=== PATIENT | male | born 1935 | race African-American/Black ===

== ENCOUNTER 2018-11-22 10:22 | Inpatient (IN) | payer MEDICARE, OTHER ==
[~2018-11-22] VITALS: Ht 177.8 cm; Wt 41.4 kg
[2018-11-22] MEDS ORDERED: SOD CHLORIDE 0.9% 1,000 ML IV STA (10:27)
[2018-11-22] MEDS ORDERED: SOD CHLORIDE 0.9% 1,000 ML IV SCH (12:05)
--- NOTE | 2018-11-22 12:13 | ERD ---
ER Documentation Chief Complaint Chief Complaint FAILURE TO THRIVE FROM HOME, BIB R102 HPI 83-year-old gentleman who has a history of prior stroke who presents to the emergency room for failure to thrive. The patient lives at home with family member. The patient is not taking oral intake for at least 2 days. He denies any falls or injuries. The family was concerned and called 911. There have been some conversations around palliative care for this patient in the past. ROS All systems reviewed and are negative except as per history of present illness. Allergies Allergies: Coded Allergies: No Known Allergy (Unverified , 11/22/18) PMhx/Soc Medical and Surgical Hx: Unable to obtain Hx Alcohol Use: No Hx Substance Use: No Hx Tobacco Use: No Smoking Status: Unknown if ever smoked FmHx Family History: No diabetes Physical Exam Vitals Vital Signs Date Temp Pulse Resp B/P (MAP) Pulse Ox O2 O2 Flow FiO2 Time Delivery Rate 11/22/18 98.5 106 15 129/76 100 Room Air 12:00 (93) 11/22/18 98.5 125 12 116/68 100 10:35 (84) Physical Exam General: Cachectic male, clinical stigmata of severe dehydration Head: Normocephalic, atraumatic. Eyes: Pupils equally reactive, EOM intact ENT: Very dry mucous membranes Neck: Supple, no lymphadenopathy Respiratory: Lungs clear bilaterally, no distress Cardiovascular: RRR, no murmurs, rubs, or gallops Abdominal: Soft, non-tender, non-distended, no peritoneal signs : Deferred MSK: No edema, no unilateral swelling, generalized weakness noted Neurologic: Alert and oriented, moving all extremities, normal speech, no focal weakness, no cerebellar signs Skin: No rash Psych: Normal mood Result Diagram: 11/22/18 1100 11/22/18 1100 Results 24 hrs Laboratory Tests Test 11/22/18 10:44 11/22/18 11:00 Bedside Glucose 103 mg/dL White Blood Count 14.5 10^3/ul Red Blood Count 4.91 10^6/ul Hemoglobin 15.3 g/dl Hematocrit 49.5 % Mean Corpuscular Volume 100.8 fl Mean Corpuscular Hemoglobin 31.2 pg Mean Corpuscular Hemoglobin Concent 30.9 g/dl Red Cell Distribution Width 14.6 % Platelet Count 198 10^3/UL Mean Platelet Volume 12.4 fl Immature Granulocytes % 0.500 % Neutrophils % 82.6 % Lymphocytes % 9.8 % Monocytes % 5.9 % Eosinophils % 0.5 % Basophils % 0.7 % Nucleated Red Blood Cells % 0.0 /100WBC Immature Granulocytes # 0.070 10^3/ul Neutrophils # 12.0 10^3/ul Lymphocytes # 1.4 10^3/ul Monocytes # 0.9 10^3/ul Eosinophils # 0.1 10^3/ul Basophils # 0.1 10^3/ul Nucleated Red Blood Cells # 0.0 10^3/ul Sodium Level 157 mmol/L Potassium Level 5.2 mmol/L Chloride Level 110 mmol/L Carbon Dioxide Level 25 mmol/L Anion Gap 22 Blood Urea Nitrogen 121 mg/dl Creatinine 3.05 mg/dl Est Glomerular Filtrat Rate mL/min mL/min Glucose Level 148 mg/dl Calcium Level 11.6 mg/dl Total Bilirubin 0.1 mg/dl Direct Bilirubin 0.00 mg/dl Indirect Bilirubin 0.1 mg/dl Aspartate Amino Transf (AST/SGOT) 22 IU/L Alanine Aminotransferase (ALT/SGPT) 29 IU/L Alkaline Phosphatase 96 IU/L Troponin I 0.099 ng/ml Total Protein 7.3 g/dl Albumin 4.5 g/dl Globulin 2.80 g/dl Albumin/Globulin Ratio 1.60 Free Thyroxine Index 4.01 ug/ml Thyroxine (T4) 10.9 ug/dl Triiodothyronine (T3) Uptake 36.8 % Current Medications Medications Dose Sig/Celina Start Time Status Last (Trade) Ordered Route PRN Stop Time Admin Dose Reason Admin Sodium 1,000 ml @ Q1H STAT 11/22/18 DC 11/22/18 Chloride 1,000 mls/hr IV 10:27 11/22/18 10:50 11:26 Ondansetron 4 mg BRIDGE ORDER 11/22/18 HCl (Zofran PRN IV 12:30 11/23/18 Inj) NAUSEA/VOMITI 12:29 NG 650 mg ER BRIDGE 11/22/18 Acetaminophen PRN PO 12:30 11/23/18 (Tylenol .MILD PAIN 12:29 Tab) 1-3 OR TEMP Sodium 1,000 ml @ [id number] IV 11/22/18 UNV Chloride 70 mls/hr 12:05 Procedures/MDM EKG, MONITORS, & DIAGNOSTIC IMAGING: EKG: I reviewed and interpreted a 12-lead EKG. Rhythm: Normal sinus rhythm ST Changes: No contiguous ST segment elevations T waves: No contiguous T wave inversions Impression: [No evidence of acute cardiac ischemia] cxr IMPRESSION: 1. Hyperinflated lungs which are clear. 2. Benign chronic age-related senescent changes. 3. No acute cardiopulmonary process. RPTAT: PP CTB IMPRESSION: 1. Moderate diffuse atrophy. 2. Mild microangiopathic ischemic change. 3. Vascular calcifications. 4. No acute intracranial process. RPTAT: HMJB LAB INTERPRETATION: I reviewed the laboratory testing and it shows severe hypernatremia, potassium of 5.3, renal insufficiency 3.0 unknown baseline MEDICAL DECISION MAKING: The patient presents with clear signs and symptoms of severe dehydration secondary to poor p.o. intake, emaciation and cachexia. This is very consistent with possible end-of-life issues versus failure to thrive. The patient will benefit from hospitalization for treatment of severe dehydration but further conversation surrounding palliation would be most appropriate. The patient does have some borderline T wave on his EKG but the patient has a potassium of 5.3. I do not believe this is an indication for treatment with calcium. The patient's potassium and creatinine are likely to respond to fluid resuscitation. ER COURSE: * Patient was given IV fluids. Laboratory testing and diagnostic imaging are documented above. The patient is stable for admission and further management. CONSULTATION: [None] DISPOSITION PLAN: Accepting care team and consultations: I discussed the current laboratory data, diagnostic imaging and emergency care provided. Admitting team: Dr. Garcia Admitting team indication: Insurance directed Departure Diagnosis: Primary Impression: Severe dehydration Additional Impressions: Acute renal failure Acute renal failure type: unspecified Qualified Codes: N17.9 - Acute kidney failure, unspecified Hypernatremia Failure to thrive Failure to thrive age range: in adult Qualified Codes: R62.7 - Adult failure to thrive Condition: Stable CARYN OVIEDO MD Nov 22, 2018 12:13
[2018-11-22] MEDS ORDERED: ONDANSETRON 4 MG INJ IV PRN ×2 (12:30)
[2018-11-22] MEDS ORDERED: NACL 0.9% 3 ML SYG IV SCH (12:30)
[2018-11-22] MEDS ORDERED: ACETAMINOPHEN 325 MG TAB PO PRN ×2 (12:30)
--- NOTE | 2018-11-22 12:35 | HP ---
Date/Time of Note Date/Time of Note DATE: 11/22/18 TIME: 12:34 Assessment/Plan VTE Prophylaxis Pharmacological prophylaxis: other Lines/Catheters IV [facility]from [facility] Peripheral IV Assessment/Plan Hospital Course Patient is a -[place] male with past medical history significant for dementia, history of CVA, history of [place], dyslipidemia, hypertension, diabetes mellitus, hyperparathyroidism who presents to [facility] by his family for failure to thrive. According to daughter at bedside, patient is at baseline dementia cognition however in the past week or so patient has becoming worse and worse as far as his appetite. Patient's appetite was already terrible to begin with with barely any oral intake, however recently patient has not wanted any food at all. Patient currently has no acute complaints other than not feeling hungry. Patient according to daughter has had 0 to no oral intake and has thrown up recently as well. HPI is limited as patient's mental status is chronic is not conducive for more information. Objective Physical exam General: Patient is laying in bed and answers questions sometimes, extremely cachectic Mentation: Patient is alert and oriented to self somewhat Head: Normocephalic atraumatic Eyes: EOMI, pupils reactive to light Neck: Supple, nontender, midline Respiratory: Clear to auscultation bilaterally Cardiovascular: regular rate, no obvious murmurs Gastrointestinal: non-tender to palpation, bowel sounds heard. Neurological: Moves all extremities spontaneously Skin: No new skin lesions Assessment and plan Failure to thrive with inability to tolerate p.o. and nausea -Possible end-of-life care, patient on palliative care at home, will also consult palliative care physician here -We will attempt conservative measures for now and will approach this at a [id number] fashion, patient has no acute complaints at this time except for not being hungry, -IV fluids as patient is likely extremely dehydrated -Daughter states that patient's swallowing may have been compromised recently, will get speech therapy evaluation, n.p.o. for now -We will need to rule out UTI as cause of above failure to thrive, urinalysis still pending. Will need antibiotics if urinalysis is positive Leukocytosis -Very mild, likely reactive, however urinalysis is not back yet, will monitor Acute kidney injury versus chronic kidney disease -Likely secondary to decreased p.o. intake -Nephrology, Dr. Woods consulted -Continue IV fluids Hypernatremia -Likely secondary to extreme dehydration -IV fluids for now Dementia -At baseline per daughter, able to answer questions but does not have full insight into his medical care Dyslipidemia -Continue home meds when able to tolerate p.o. Hypertension -Continue home meds when able to tolerate p.o. Diabetes mellitus -Insulin sliding scale 1 house, A1c pending Hyperkalemia -Likely secondary to above acute kidney injury, mild, monitor for now, nephrology recommendations appreciated Hyperparathyroidism -Patient on Sensipar at home, however recently started, continue home meds when able, Disposition -This appears to be a case of worsening failure to thrive however will rule out infectious causes, pending UTI workup, continue IV hydration and follow-up tomorrow and take this on a [id number] basis. Patient's family would like fu resuscitation for now. Result Diagram: 11/22/18 1100 11/22/18 1100 Results 24hrs Laboratory Tests Test 11/22/18 10:44 11/22/18 11:00 Bedside Glucose 103 White Blood Count 14.5 H Red Blood Count 4.91 Hemoglobin 15.3 Hematocrit 49.5 Mean Corpuscular Volume 100.8 Mean Corpuscular Hemoglobin 31.2 Mean Corpuscular Hemoglobin Concent 30.9 L Red Cell Distribution Width 14.6 H Platelet Count 198 Mean Platelet Volume 12.4 H Immature Granulocytes % 0.500 H Neutrophils % 82.6 H Lymphocytes % 9.8 L Monocytes % 5.9 Eosinophils % 0.5 Basophils % 0.7 Nucleated Red Blood Cells % 0.0 Immature Granulocytes # 0.070 H Neutrophils # 12.0 H Lymphocytes # 1.4 Monocytes # 0.9 Eosinophils # 0.1 Basophils # 0.1 Nucleated Red Blood Cells # 0.0 Sodium Level 157 H Potassium Level 5.2 H Chloride Level 110 Carbon Dioxide Level 25 Anion Gap 22 H Blood Urea Nitrogen 121 H Creatinine 3.05 H Est Glomerular Filtrat Rate mL/min Glucose Level 148 Calcium Level 11.6 H Total Bilirubin 0.1 L Direct Bilirubin 0.00 Indirect Bilirubin 0.1 Aspartate Amino Transf (AST/SGOT) 22 Alanine Aminotransferase (ALT/SGPT) 29 Alkaline Phosphatase 96 Troponin I 0.099 Total Protein 7.3 Albumin 4.5 Globulin 2.80 Albumin/Globulin Ratio 1.60 Free Thyroxine Index 4.01 H Thyroxine (T4) 10.9 Triiodothyronine (T3) Uptake 36.8 HPI/ROS Admit Date/Time Admit Date/Time PMH/Family/Social Past Medical History Medications Current Medications Ondansetron HCl (Zofran Inj) 4 mg BRIDGE ORDER PRN IV NAUSEA/VOMITING; Start 11/22/18 at 12:30; Stop 11/23/18 at 12:29 Acetaminophen (Tylenol Tab) 650 mg ER BRIDGE PRN PO .MILD PAIN 1-3 OR TEMP; Start 11/22/18 at 12:30; Stop 11/23/18 at 12:29 Sodium Chloride 1,000 ml @ 70 mls/hr [id number] IV ; Start 11/22/18 at 12:05 IV Flush (NS 3 ml) 3 ml PER PROTOCOL IV ; Start 11/22/18 at 12:30 Ondansetron HCl (Zofran Inj) 4 mg Q6H PRN IV NAUSEA/VOMITING; Start 11/22/18 at 12:30 Acetaminophen (Tylenol Tab) 650 mg Q6H PRN PO .PAIN 1-3 OR TEMP; Start 11/22/18 at 12:30 Pantoprazole (Protonix Iv) 40 mg DAILY@06 IV ; Start 11/23/18 at 06:00 Miscellaneous Information (* Miscellaneous Pharmacy Order) Discontinue current oral sulfonylur... ONCE ONCE XX ; Start 11/22/18 at 13:00; Stop 11/22/18 at 13:01; Status UNV Diagnostic Test (Pha) (Accu-Chek) 1 XX ; Start 11/23/18 at 02:00; Status UNV Miscellaneous Information (* Miscellaneous Pharmacy Order) HYPOGLYCEMIA PROTOCOL w... ONCE ONCE XX ; Start 11/22/18 at 13:00; Stop 11/22/18 at 13:01; Status UNV Insulin Aspart (Novolog Insulin Pen) NOVOLOG *MILD* ALGORITHM Q4 SC ; Start 11/22/18 at 13:00; Status UNV Miscellaneous Information (* Miscellaneous Pharmacy Order) Discontinue all previ... ONCE ONCE XX ; Start 11/22/18 at 13:00; Stop 11/22/18 at 13:01; Status UNV Coded Allergies: No Known Allergy (Unverified , 11/22/18) Social History Smoking Status: Unknown if ever smoked Exam/Review of Systems Vital Signs Vitals Vital Signs Date Temp Pulse Resp B/P (MAP) Pulse Ox O2 O2 Flow FiO2 Time Delivery Rate 11/22/18 98.5 106 15 129/76 100 Room Air 12:00 (93) BRADLEY RINCON Nov 22, 2018 12:35
--- NOTE | 2018-11-22 12:50 | CONS ---
Assessment/Plan Assessment/Plan Assessment/Plan (Daily) 1. acute kidney injury on possible CKD due to ATN from prerenal azotemia from dehydration 2. Severe dehydration due to Decreased PO , failure to thrive 3. Acute hypernatremia 4. Hyperkalemia 5. H/o Previosu CAD s/p stent placement 6. H/o Dementia 7. H/o Hypertension 8. H/o Hypothyroidism Plan: S/p 1 L NS in ED, will change IVF from NS to 1/2 NS at 80 cc/h due to hypern atremia Urine Na, Urine prot/cr ration, Urine eosinophils, CK total, Uric acid Renal US to assess for CKD, to rule out hydronephrosis Dietary consult swallow evaluation Thanks for consultation, I will continue to follow up Consultation Date/Type/Reason Admit Date/Time 11/22/18 Date of Consultation: Nov 22, 2018 Type of Consult NEPHROLOGY Reason for Consultation acute kidney injury, hyperkalemia, Hypernatremia Requesting Provider: BRADLEY RINCON Date/Time of Note DATE: 11/22/18 TIME: 12:49 Hx of Present Illness 83 y/o male with past medical history significant for dementia, history of CVA, history of [place], dyslipidemia, hypertension, diabetes mellitus, hyperparathyroidism who presents to [facility] by his family for failure to thrive. According to daughter at bedside, patient is at baseline dementia cognition however in the past week or so patient has becoming worse and worse as far as his appetite. he gets admitted for failure to thrive, severe dehydration , ON admission BUN/Cr 121/3.05, Na 157, K 5.2- Renal has been consulted for hypernatremia, acute kidney injury, Hyperkalemia. pt is nonverbal at this time to provide any detailed HPI. Subjective hx not possible: other Past Medical History Medical History: coronary artery disease, diabetes, high cholesterol, hypertension, other (dementia ) Medications Current Medications Ondansetron HCl (Zofran Inj) 4 mg BRIDGE ORDER PRN IV NAUSEA/VOMITING; Start 11/22/18 at 12:30; Stop 11/23/18 at 12:29 Acetaminophen (Tylenol Tab) 650 mg ER BRIDGE PRN PO .MILD PAIN 1-3 OR TEMP; Start 11/22/18 at 12:30; Stop 11/23/18 at 12:29 Sodium Chloride 1,000 ml @ 70 mls/hr [id number] IV ; Start 11/22/18 at 12:05 IV Flush (NS 3 ml) 3 ml PER PROTOCOL IV ; Start 11/22/18 at 12:30 Ondansetron HCl (Zofran Inj) 4 mg Q6H PRN IV NAUSEA/VOMITING; Start 11/22/18 at 12:30 Acetaminophen (Tylenol Tab) 650 mg Q6H PRN PO .PAIN 1-3 OR TEMP; Start 11/22/18 at 12:30 Pantoprazole (Protonix Iv) 40 mg DAILY@06 IV ; Start 11/23/18 at 06:00 Diagnostic Test (Pha) (Accu-Chek) 1 ea 02 XX ; Start 11/23/18 at 02:00 Insulin Aspart (Novolog Insulin Pen) NOVOLOG *MILD* ALGORITHM Q4 SC ; Start 11/22/18 at 13:00 Miscellaneous Information 1 ea NOTE XX ; Start 11/22/18 at 13:00 Glucose (Glutose) 15 gm Q15M PRN PO DECREASED GLUCOSE; Start 11/22/18 at 13:00 Glucose (Glutose) 22.5 gm Q15M PRN PO DECREASED GLUCOSE; Start 11/22/18 at 13:00 Dextrose (D50w Syringe) 25 ml Q15M PRN IV DECREASED GLUCOSE; Start 11/22/18 at 13:00 Dextrose (D50w Syringe) 50 ml Q15M PRN IV DECREASED GLUCOSE; Start 11/22/18 at 13:00 Glucagon (Glucagen) 1 mg Q15M PRN IM DECREASED GLUCOSE; Start 11/22/18 at 13:00 Glucose (Glutose) 15 gm Q15M PRN BUCCAL DECREASED GLUCOSE; Start 11/22/18 at 13:00 Allergies: Coded Allergies: No Known Allergy (Unverified , 11/22/18) Past Surgical History Past Surgical Hx: other (Coronary angiogram with stent placement ) Family History Significant Family History: no pertinent family hx Social History Alcohol Use: none Smoking Status: Unknown if ever smoked Drug Use: none Exam/Review of Systems Exam Vitals Vital Signs Date Temp Pulse Resp B/P (MAP) Pulse Ox O2 O2 Flow FiO2 Time Delivery Rate 11/22/18 98.5 106 15 129/76 100 Room Air 12:00 (93) Constitutional: distress, frail, other (cachectic ) Head: normocephalic Eyes: nl conjunctiva ENMT: nl external ears & nose, other (dry mucous membrane ) Neck: supple, non-tender Respiratory: clear to auscultation, normal air movement, diminished breath corinne nds Cardiovascular: regular rate and rhythm, nl pulses Gastrointestinal: soft, non-tender Musculoskeletal: joint tenderness, muscle weakness, swelling Extremities: normal pulses Neurological: other (weak, lethargic ) Skin: other (dry skin ) Lymph: nl lymph nodes Results Result Diagram: 11/22/18 1100 11/22/18 1100 Results 24hrs Laboratory Tests Test 11/22/18 10:44 11/22/18 11:00 Bedside Glucose 103 White Blood Count 14.5 H Red Blood Count 4.91 Hemoglobin 15.3 Hematocrit 49.5 Mean Corpuscular Volume 100.8 Mean Corpuscular Hemoglobin 31.2 Mean Corpuscular Hemoglobin Concent 30.9 L Red Cell Distribution Width 14.6 H Platelet Count 198 Mean Platelet Volume 12.4 H Immature Granulocytes % 0.500 H Neutrophils % 82.6 H Lymphocytes % 9.8 L Monocytes % 5.9 Eosinophils % 0.5 Basophils % 0.7 Nucleated Red Blood Cells % 0.0 Immature Granulocytes # 0.070 H Neutrophils # 12.0 H Lymphocytes # 1.4 Monocytes # 0.9 Eosinophils # 0.1 Basophils # 0.1 Nucleated Red Blood Cells # 0.0 Sodium Level 157 H Potassium Level 5.2 H Chloride Level 110 Carbon Dioxide Level 25 Anion Gap 22 H Blood Urea Nitrogen 121 H Creatinine 3.05 H Est Glomerular Filtrat Rate mL/min Glucose Level 148 Calcium Level 11.6 H Total Bilirubin 0.1 L Direct Bilirubin 0.00 Indirect Bilirubin 0.1 Aspartate Amino Transf (AST/SGOT) 22 Alanine Aminotransferase (ALT/SGPT) 29 Alkaline Phosphatase 96 Troponin I 0.099 Total Protein 7.3 Albumin 4.5 Globulin 2.80 Albumin/Globulin Ratio 1.60 Free Thyroxine Index 4.01 H Thyroxine (T4) 10.9 Triiodothyronine (T3) Uptake 36.8 Medications Medication Current Medications Ondansetron HCl (Zofran Inj) 4 mg BRIDGE ORDER PRN IV NAUSEA/VOMITING; Start 11/22/18 at 12:30; Stop 11/23/18 at 12:29 Acetaminophen (Tylenol Tab) 650 mg ER BRIDGE PRN PO .MILD PAIN 1-3 OR TEMP; Start 11/22/18 at 12:30; Stop 11/23/18 at 12:29 Sodium Chloride 1,000 ml @ 70 mls/hr [id number] IV ; Start 11/22/18 at 12:05 IV Flush (NS 3 ml) 3 ml PER PROTOCOL IV ; Start 11/22/18 at 12:30 Ondansetron HCl (Zofran Inj) 4 mg Q6H PRN IV NAUSEA/VOMITING; Start 11/22/18 at 12:30 Acetaminophen (Tylenol Tab) 650 mg Q6H PRN PO .PAIN 1-3 OR TEMP; Start 11/22/18 at 12:30 Pantoprazole (Protonix Iv) 40 mg DAILY@06 IV ; Start 11/23/18 at 06:00 Diagnostic Test (Pha) (Accu-Chek) 1 ea 02 XX ; Start 11/23/18 at 02:00 Insulin Aspart (Novolog Insulin Pen) NOVOLOG *MILD* ALGORITHM Q4 SC ; Start 11/22/18 at 13:00 Miscellaneous Information 1 ea NOTE XX ; Start 11/22/18 at 13:00 Glucose (Glutose) 15 gm Q15M PRN PO DECREASED GLUCOSE; Start 11/22/18 at 13:00 Glucose (Glutose) 22.5 gm Q15M PRN PO DECREASED GLUCOSE; Start 11/22/18 at 13:00 Dextrose (D50w Syringe) 25 ml Q15M PRN IV DECREASED GLUCOSE; Start 11/22/18 at 13:00 Dextrose (D50w Syringe) 50 ml Q15M PRN IV DECREASED GLUCOSE; Start 11/22/18 at 13:00 Glucagon (Glucagen) 1 mg Q15M PRN IM DECREASED GLUCOSE; Start 11/22/18 at 13:00 Glucose (Glutose) 15 gm Q15M PRN BUCCAL DECREASED GLUCOSE; Start 11/22/18 at 13:00 FREDI FLORES MD Nov 22, 2018 12:50
[2018-11-22] MEDS ORDERED: GLUCOSE GEL 15 GRAM TUBE BUCCAL PRN (13:00)
[2018-11-22] MEDS ORDERED: GLUCAGON 1 MG INJ IM PRN (13:00)
[2018-11-22] MEDS: INSULIN ASPART [NOVOLOG] 3 ML PEN SC SCH ×3 (13:00→20:59)
[2018-11-22] MEDS ORDERED: GLUCOSE GEL 15 GRAM TUBE PO PRN ×2 (13:00)
[2018-11-22] MEDS ORDERED: DEXTROSE 50% 50 ML SYRINGE IV PRN ×2 (13:00)
[2018-11-22 13:33] VITALS: Ht 177.8 cm; Wt 41.4 kg
[2018-11-22 14:39] VITALS: BP 131/64; PULSE 107; RESP 16
[2018-11-22] MEDS ORDERED: MTF1000T PO (16:58)
[2018-11-22] MEDS ORDERED: HYDR-3672 PO (16:58)
[2018-11-22] MEDS ORDERED: ATOR40TA68 PO (16:58)
[2018-11-22] MEDS ORDERED: CLOP75TA27 PO (16:58)
[2018-11-22] MEDS ORDERED: CINA60TA PO (16:58)
[2018-11-22] MEDS: SOD CHLORIDE 0.45% 1,000 ML IV SCH (18:06)
[2018-11-22 19:35] VITALS: BP 124/60; PULSE 94; RESP 17
[2018-11-23] MEDS: INSULIN ASPART [NOVOLOG] 3 ML PEN SC SCH ×6 (01:00→21:00)
[2018-11-23] MEDS: ACCU-CHEK XX SCH (02:00)
[2018-11-23 02:12] VITALS: BP 124/58; PULSE 92; RESP 18
[2018-11-23] MEDS: SOD CHLORIDE 0.45% 1,000 ML IV SCH ×2 (06:10→21:29)
[2018-11-23] MEDS: PANTOPRAZOLE 40 MG INJ IV SCH (06:13)
[2018-11-23 08:00] VITALS: BP 127/58; PULSE 93; RESP 19
--- NOTE | 2018-11-23 10:10 | PN ---
Date/Time of Note Date/Time of Note DATE: 11/23/18 TIME: 10:10 Assessment/Plan VTE Prophylaxis Risk score (from Ns)>0 risk: 5 SCD applied (from Ns): Yes Pharmacological prophylaxis: NA/contraindicated Pharm contraindication: renal impairment Lines/Catheters IV Catheter Type (from Nrs): Peripheral IV Urinary Cath still in place: Yes Reason Cath still needed: terminal illness/intractable pain Assessment/Plan Assessment/Plan 1. Failure to thrive - Per daughter patient has had a diminished appetite at home and after taking hyperparathyroid medication on empty stomach began with N/V which further exacerbated dehydration - Palliative consultation placed - Patient tolerating small amounts of pureed diet. Will continue on IVF 2. Acute kidney injury versus chronic kidney disease - Likely prerenal given evidence of dehydration - Nephrology consultation appreciated - Continue IV fluids 3. Hypernatremia - Likely secondary to dehydration - No neurological symptoms appreciated 4. Dementia - At baseline per daughter, able to answer questions but does not have full insight into his medical care - has been progressively worsening and discussed usually poor appetite is progression of disease 5. Dyslipidemia - continue on statin 6. Hypertension - BP running low. will hold off on restarting hydralazine. 7. Diabetes mellitus - A1c noted - hold metformin 8. Hyperparathyroidism - restart Sensipar given N/V resolved 9. Disposition - Will continue IVF hydration and resuscitation - When renal function improves and electrolytes normalize, can d/c home Result Diagram: 11/23/18 0503 11/23/18 0502 Results 24hrs Laboratory Tests Test 11/22/18 10:44 11/22/18 11:00 11/22/18 18:05 11/22/18 18:40 Bedside Glucose 103 101 White Blood Count 14.5 H Red Blood Count 4.91 Hemoglobin 15.3 Hematocrit 49.5 Mean Corpuscular Volume 100.8 Mean Corpuscular 31.2 Hemoglobin Mean Corpuscular 30.9 L Hemoglobin Concent Red Cell Distribution 14.6 H Width Platelet Count 198 Mean Platelet Volume 12.4 H Immature Granulocytes % 0.500 H Neutrophils % 82.6 H Lymphocytes % 9.8 L Monocytes % 5.9 Eosinophils % 0.5 Basophils % 0.7 Nucleated Red Blood 0.0 Cells % Immature Granulocytes # 0.070 H Neutrophils # 12.0 H Lymphocytes # 1.4 Monocytes # 0.9 Eosinophils # 0.1 Basophils # 0.1 Nucleated Red Blood 0.0 Cells # Sodium Level 157 H Potassium Level 5.2 H Chloride Level 110 Carbon Dioxide Level 25 Anion Gap 22 H Blood Urea Nitrogen 121 H Creatinine 3.05 H Est Glomerular Filtrat Rate mL/min Glucose Level 148 Calcium Level 11.6 H Total Bilirubin 0.1 L Direct Bilirubin 0.00 Indirect Bilirubin 0.1 Aspartate Amino 22 Transf (AST/SGOT) Alanine 29 Aminotransferase (ALT/SG PT) Alkaline Phosphatase 96 Troponin I 0.099 Total Protein 7.3 Albumin 4.5 Globulin 2.80 Albumin/Globulin Ratio 1.60 Free Thyroxine Index 4.01 H Thyroxine (T4) 10.9 Triiodothyronine (T3) 36.8 Uptake Urine Color YELLOW Urine Clarity CLEAR Urine pH 5.0 Urine Specific [place] 1.017 Urine Ketones TRACE A Urine Nitrite NEGATIVE Urine Bilirubin NEGATIVE Urine Urobilinogen NEGATIVE Urine Leukocyte Esterase NEGATIVE Urine Microscopic RBC 2 Urine Microscopic WBC 3 Urine Bacteria FEW A Urine Eosinophils % 0.0 Urine Hemoglobin NEGATIVE Urine Random Creatinine 119.87 Urine Random Sodium 19 L Urine Protein/Creatinine 0.34 Ratio Urine Glucose NEGATIVE Urine Total Protein 41.0 H Test 11/22/18 20:55 11/23/18 01:37 11/23/18 05:02 11/23/18 05:03 Bedside Glucose 100 114 Sodium Level 155 H Potassium Level 4.2 Chloride Level 119 H Carbon Dioxide Level 22 Anion Gap 14 #H Blood Urea Nitrogen 113 H Creatinine 2.36 H Est Glomerular Filtrat Rate mL/min Glucose Level 123 Calcium Level 10.9 H Magnesium Level 2.0 Total Bilirubin 0.1 L Direct Bilirubin 0.00 Indirect Bilirubin 0.1 Aspartate Amino 22 Transf (AST/SGOT) Alanine 19 Aminotransferase (ALT/SG PT) Alkaline Phosphatase 75 Total Protein 6.2 # Albumin 3.6 Globulin 2.60 Albumin/Globulin Ratio 1.38 White Blood Count 12.7 H Red Blood Count 4.03 L Hemoglobin 12.6 L Hematocrit 40.3 L Mean Corpuscular Volume 100.0 Mean Corpuscular 31.3 Hemoglobin Mean Corpuscular 31.3 L Hemoglobin Concent Red Cell Distribution 14.6 H Width Platelet Count 154 # Mean Platelet Volume 13.0 H Immature Granulocytes % 0.400 Neutrophils % 82.4 H Lymphocytes % 7.6 L Monocytes % 7.9 Eosinophils % 1.1 Basophils % 0.6 Nucleated Red Blood 0.0 Cells % Immature Granulocytes # 0.050 H Neutrophils # 10.5 H Lymphocytes # 1.0 Monocytes # 1.0 H Eosinophils # 0.1 Basophils # 0.1 Nucleated Red Blood 0.0 Cells # Hemoglobin A1c 6.0 H Uric Acid 16.2 H Creatine Kinase < 20 L Test 11/23/18 06:13 11/23/18 09:07 Bedside Glucose 121 102 Subjective 24 Hr Interval Summary Free Text/Dictation Patient able to answer simple questions this am and denies any acute issues. Tolerating pureed diet. Discussed plan of care with daughter Aleksandra this am. Exam/Review of Systems Exam Vitals Vital Signs Date Temp Pulse Resp B/P (MAP) Pulse Ox O2 O2 Flow FiO2 Time Delivery Rate 11/23/18 97.6 93 19 127/58 98 08:00 (81) 11/22/18 Room Air 14:39 Intake and Output 11/22/18 11/22/18 11/23/18 1515:00 23:00 07:00 IntakeIntake Total 210 ml BalanceBalance 210 ml Exam General: Patient is laying in bed, extremely cachectic Neck: Supple, nontender, midline Respiratory: Clear to auscultation bilaterally. no wheezing Cardiovascular: regular rate and rhythm, no obvious murmurs Gastrointestinal: soft, non-tender to palpation, bowel sounds heard. Neurological: Moves all extremities spontaneously,diffuse muscle wasting Skin: No new skin lesions Results Results 24hrs Laboratory Tests Test 11/22/18 10:44 11/22/18 11:00 11/22/18 18:05 11/22/18 18:40 Bedside Glucose 103 101 White Blood Count 14.5 H Red Blood Count 4.91 Hemoglobin 15.3 Hematocrit 49.5 Mean Corpuscular Volume 100.8 Mean Corpuscular 31.2 Hemoglobin Mean Corpuscular 30.9 L Hemoglobin Concent Red Cell Distribution 14.6 H Width Platelet Count 198 Mean Platelet Volume 12.4 H Immature Granulocytes % 0.500 H Neutrophils % 82.6 H Lymphocytes % 9.8 L Monocytes % 5.9 Eosinophils % 0.5 Basophils % 0.7 Nucleated Red Blood 0.0 Cells % Immature Granulocytes # 0.070 H Neutrophils # 12.0 H Lymphocytes # 1.4 Monocytes # 0.9 Eosinophils # 0.1 Basophils # 0.1 Nucleated Red Blood 0.0 Cells # Sodium Level 157 H Potassium Level 5.2 H Chloride Level 110 Carbon Dioxide Level 25 Anion Gap 22 H Blood Urea Nitrogen 121 H Creatinine 3.05 H Est Glomerular Filtrat Rate mL/min Glucose Level 148 Calcium Level 11.6 H Total Bilirubin 0.1 L Direct Bilirubin 0.00 Indirect Bilirubin 0.1 Aspartate Amino 22 Transf (AST/SGOT) Alanine 29 Aminotransferase (ALT/SG PT) Alkaline Phosphatase 96 Troponin I 0.099 Total Protein 7.3 Albumin 4.5 Globulin 2.80 Albumin/Globulin Ratio 1.60 Free Thyroxine Index 4.01 H Thyroxine (T4) 10.9 Triiodothyronine (T3) 36.8 Uptake Urine Color YELLOW Urine Clarity CLEAR Urine pH 5.0 Urine Specific [place] 1.017 Urine Ketones TRACE A Urine Nitrite NEGATIVE Urine Bilirubin NEGATIVE Urine Urobilinogen NEGATIVE Urine Leukocyte Esterase NEGATIVE Urine Microscopic RBC 2 Urine Microscopic WBC 3 Urine Bacteria FEW A Urine Eosinophils % 0.0 Urine Hemoglobin NEGATIVE Urine Random Creatinine 119.87 Urine Random Sodium 19 L Urine Protein/Creatinine 0.34 Ratio Urine Glucose NEGATIVE Urine Total Protein 41.0 H Test 11/22/18 20:55 11/23/18 01:37 11/23/18 05:02 11/23/18 05:03 Bedside Glucose 100 114 Sodium Level 155 H Potassium Level 4.2 Chloride Level 119 H Carbon Dioxide Level 22 Anion Gap 14 #H Blood Urea Nitrogen 113 H Creatinine 2.36 H Est Glomerular Filtrat Rate mL/min Glucose Level 123 Calcium Level 10.9 H Magnesium Level 2.0 Total Bilirubin 0.1 L Direct Bilirubin 0.00 Indirect Bilirubin 0.1 Aspartate Amino 22 Transf (AST/SGOT) Alanine 19 Aminotransferase (ALT/SG PT) Alkaline Phosphatase 75 Total Protein 6.2 # Albumin 3.6 Globulin 2.60 Albumin/Globulin Ratio 1.38 White Blood Count 12.7 H Red Blood Count 4.03 L Hemoglobin 12.6 L Hematocrit 40.3 L Mean Corpuscular Volume 100.0 Mean Corpuscular 31.3 Hemoglobin Mean Corpuscular 31.3 L Hemoglobin Concent Red Cell Distribution 14.6 H Width Platelet Count 154 # Mean Platelet Volume 13.0 H Immature Granulocytes % 0.400 Neutrophils % 82.4 H Lymphocytes % 7.6 L Monocytes % 7.9 Eosinophils % 1.1 Basophils % 0.6 Nucleated Red Blood 0.0 Cells % Immature Granulocytes # 0.050 H Neutrophils # 10.5 H Lymphocytes # 1.0 Monocytes # 1.0 H Eosinophils # 0.1 Basophils # 0.1 Nucleated Red Blood 0.0 Cells # Hemoglobin A1c 6.0 H Uric Acid 16.2 H Creatine Kinase < 20 L Test 11/23/18 06:13 11/23/18 09:07 Bedside Glucose 121 102 Medications Medication Current Medications IV Flush (NS 3 ml) 3 ml PER PROTOCOL IV ; Start 11/22/18 at 12:30 Ondansetron HCl (Zofran Inj) 4 mg Q6H PRN IV NAUSEA/VOMITING; Start 11/22/18 at 12:30 Acetaminophen (Tylenol Tab) 650 mg Q6H PRN PO .PAIN 1-3 OR TEMP; Start 11/22/18 at 12:30 Pantoprazole (Protonix Iv) 40 mg DAILY@06 IV Last administered on 11/23/18at 0 6:13; Admin Dose 40 MG; Start 11/23/18 at 06:00 Diagnostic Test (Pha) (Accu-Chek) 1 ea 02 XX ; Start 11/23/18 at 02:00 Insulin Aspart (Novolog Insulin Pen) NOVOLOG *MILD* ALGORITHM Q4 SC ; Start 11/22/18 at 13:00 Miscellaneous Information 1 ea NOTE XX ; Start 11/22/18 at 13:00 Glucose (Glutose) 15 gm Q15M PRN PO DECREASED GLUCOSE; Start 11/22/18 at 13:00 Glucose (Glutose) 22.5 gm Q15M PRN PO DECREASED GLUCOSE; Start 11/22/18 at 13:00 Dextrose (D50w Syringe) 25 ml Q15M PRN IV DECREASED GLUCOSE; Start 11/22/18 at 13:00 Dextrose (D50w Syringe) 50 ml Q15M PRN IV DECREASED GLUCOSE; Start 11/22/18 at 13:00 Glucagon (Glucagen) 1 mg Q15M PRN IM DECREASED GLUCOSE; Start 11/22/18 at 13:00 Glucose (Glutose) 15 gm Q15M PRN BUCCAL DECREASED GLUCOSE; Start 11/22/18 at 13:00 Sodium Chloride 1,000 ml @ 80 mls/hr [id number] IV Last administered on 11/23/18at 06:10; Admin Dose 80 MLS/HR; Start 11/22/18 at 17:00 HUSSEIN VENEGAS MD Nov 23, 2018 10:10
--- NOTE | 2018-11-23 11:42 | CONS ---
Assessment/Plan Assessment/Plan Assessment/Plan (Daily) 1. acute kidney injury on possible CKD due to ATN from prerenal azotemia from dehydration 2. Severe dehydration due to Decreased PO , failure to thrive 3. Acute hypernatremia 4. Hyperkalemia 5. H/o Previosu CAD s/p stent placement 6. H/o Dementia 7. H/o Hypertension 8. H/o Hypothyroidism Plan: BUN/Cr slightly better 113/2.36, Na 155, uric acid 16.2- started on allopurinol 100mg PO BID , BP stable IVF 1/2 NS at 80 cc/hr for dehydration Renal US c/w medical renal disease, left kidney not visualized Dietary consult swallow evaluation will follow up Consultation Date/Type/Reason Admit Date/Time Nov 22, 2018 at 12:06 Initial Consult Date 11/22/18 Type of Consult NEPHROLOGY Requesting Provider: BRADLEY RINCON Date/Time of Note DATE: 11/23/18 TIME: 11:42 24 HR Interval Summary Free Text/Dictation BUN/Cr slightly better, uric acid 16.2- started on allopurinol 100mg PO BID , BP stable Exam/Review of Systems Exam Vitals Vital Signs Date Temp Pulse Resp B/P (MAP) Pulse Ox O2 O2 Flow FiO2 Time Delivery Rate 11/23/18 97.6 93 19 127/58 98 08:00 (81) 11/22/18 Room Air 14:39 Intake and Output 11/22/18 11/22/18 11/23/18 1515:00 23:00 07:00 IntakeIntake Total 210 ml BalanceBalance 210 ml Exam Constitutional: distress, frail, other (cachectic ) Respiratory: clear to auscultation, normal air movement, diminished breath sounds Cardiovascular: regular rate and rhythm, nl pulses Gastrointestinal: soft, non-tender Musculoskeletal: joint tenderness, muscle weakness, swelling Extremities: normal pulses Neurological: other (weak, lethargic ) Results Result Diagram: 11/23/18 0503 11/23/18 0502 Results 24hrs Laboratory Tests Test 11/22/18 18:05 11/22/18 18:40 11/22/18 20:55 11/23/18 01:37 Bedside Glucose 101 100 114 Urine Color YELLOW Urine Clarity CLEAR Urine pH 5.0 Urine Specific [place] 1.017 Urine Ketones TRACE A Urine Nitrite NEGATIVE Urine Bilirubin NEGATIVE Urine Urobilinogen NEGATIVE Urine Leukocyte Esterase NEGATIVE Urine Microscopic RBC 2 Urine Microscopic WBC 3 Urine Bacteria FEW A Urine Eosinophils % 0.0 Urine Hemoglobin NEGATIVE Urine Random Creatinine 119.87 Urine Random Sodium 19 L Urine Protein/Creatinine 0.34 Ratio Urine Glucose NEGATIVE Urine Total Protein 41.0 H Test 11/23/18 05:02 11/23/18 05:03 11/23/18 06:13 11/23/18 09:07 Sodium Level 155 H Potassium Level 4.2 Chloride Level 119 H Carbon Dioxide Level 22 Anion Gap 14 #H Blood Urea Nitrogen 113 H Creatinine 2.36 H Est Glomerular Filtrat Rate mL/min Glucose Level 123 Calcium Level 10.9 H Magnesium Level 2.0 Total Bilirubin 0.1 L Direct Bilirubin 0.00 Indirect Bilirubin 0.1 Aspartate Amino 22 Transf (AST/SGOT) Alanine 19 Aminotransferase (ALT/SG PT) Alkaline Phosphatase 75 Total Protein 6.2 # Albumin 3.6 Globulin 2.60 Albumin/Globulin Ratio 1.38 White Blood Count 12.7 H Red Blood Count 4.03 L Hemoglobin 12.6 L Hematocrit 40.3 L Mean Corpuscular Volume 100.0 Mean Corpuscular 31.3 Hemoglobin Mean Corpuscular 31.3 L Hemoglobin Concent Red Cell Distribution 14.6 H Width Platelet Count 154 # Mean Platelet Volume 13.0 H Immature Granulocytes % 0.400 Neutrophils % 82.4 H Lymphocytes % 7.6 L Monocytes % 7.9 Eosinophils % 1.1 Basophils % 0.6 Nucleated Red Blood 0.0 Cells % Immature Granulocytes # 0.050 H Neutrophils # 10.5 H Lymphocytes # 1.0 Monocytes # 1.0 H Eosinophils # 0.1 Basophils # 0.1 Nucleated Red Blood 0.0 Cells # Hemoglobin A1c 6.0 H Uric Acid 16.2 H Creatine Kinase < 20 L Bedside Glucose 121 102 Medications Medication Current Medications IV Flush (NS 3 ml) 3 ml PER PROTOCOL IV ; Start 11/22/18 at 12:30 Ondansetron HCl (Zofran Inj) 4 mg Q6H PRN IV NAUSEA/VOMITING; Start 11/22/18 at 12:30 Acetaminophen (Tylenol Tab) 650 mg Q6H PRN PO .PAIN 1-3 OR TEMP; Start 11/22/18 at 12:30 Pantoprazole (Protonix Iv) 40 mg DAILY@06 IV Last administered on 11/23/18at 06:13; Admin Dose 40 MG; Start 11/23/18 at 06:00 Diagnostic Test (Pha) (Accu-Chek) 1 ea 02 XX ; Start 11/23/18 at 02:00 Insulin Aspart (Novolog Insulin Pen) NOVOLOG *MILD* ALGORITHM Q4 SC ; Start 11/22/18 at 13:00 Miscellaneous Information 1 ea NOTE XX ; Start 11/22/18 at 13:00 Glucose (Glutose) 15 gm Q15M PRN PO DECREASED GLUCOSE; Start 11/22/18 at 13:00 Glucose (Glutose) 22.5 gm Q15M PRN PO DECREASED GLUCOSE; Start 11/22/18 at 13:00 Dextrose (D50w Syringe) 25 ml Q15M PRN IV DECREASED GLUCOSE; Start 11/22/18 at 13:00 Dextrose (D50w Syringe) 50 ml Q15M PRN IV DECREASED GLUCOSE; Start 11/22/18 at 13:00 Glucagon (Glucagen) 1 mg Q15M PRN IM DECREASED GLUCOSE; Start 11/22/18 at 13:00 Glucose (Glutose) 15 gm Q15M PRN BUCCAL DECREASED GLUCOSE; Start 11/22/18 at 13:00 Sodium Chloride 1,000 ml @ 80 mls/hr [id number] IV Last administered on 11/23/18at 06:10; Admin Dose 80 MLS/HR; Start 11/22/18 at 17:00 FREDI FLORES MD Nov 23, 2018 11:42
[2018-11-23 15:00] VITALS: BP 151/70; PULSE 95; RESP 18
[2018-11-23 20:00] VITALS: BP 127/61; PULSE 83; RESP 18
[2018-11-23] MEDS: ALLOPURINOL 100 MG TAB PO SCH (21:20)
[2018-11-23] MEDS: CINACALCET 30 MG TAB PO SCH (21:22)
[2018-11-24 02:00] VITALS: BP 126/60; PULSE 87; RESP 18
[2018-11-24] MEDS: ACCU-CHEK XX SCH (02:00)
[2018-11-24] MEDS: PANTOPRAZOLE 40 MG INJ IV SCH (05:27)
[2018-11-24] MEDS: INSULIN ASPART [NOVOLOG] 3 ML PEN SC SCH ×4 (07:30→21:00)
[2018-11-24 08:00] VITALS: BP 164/75; PULSE 100; RESP 20
[2018-11-24] MEDS: CLOPIDOGREL 75 MG TAB PO SCH (09:14)
[2018-11-24] MEDS: ATORVASTATIN 40 MG TAB PO SCH (09:14)
[2018-11-24] MEDS: CINACALCET 30 MG TAB PO SCH ×2 (09:15→21:22)
[2018-11-24] MEDS: ALLOPURINOL 100 MG TAB PO SCH ×2 (09:15→21:22)
[2018-11-24] MEDS: BALSAM PERU/CASTOR OIL 60 GM TUBE TOP SCH ×2 (09:16→21:23)
--- NOTE | 2018-11-24 09:21 | PN ---
Date/Time of Note Date/Time of Note DATE: 11/24/18 TIME: 09:21 Assessment/Plan VTE Prophylaxis Risk score (from [facility] [place] risk: 4 SCD applied (from [facility] [place]): Yes Pharmacological prophylaxis: NA/contraindicated Pharm contraindication: renal impairment Lines/Catheters IV Catheter Type (from [facility]): Peripheral IV Urinary Cath still in place: Yes Reason Cath still needed: urinary retention Assessment/Plan Assessment/Plan 1. Failure to thrive - Patient still with poor intake but tolerating current diet. Will add protein supplements to meals. Discussed PEG placement with daughter and she will consider based on his progression clinically - Palliative consultation appreciated - Patient tolerating small amounts of pureed diet. Will continue on IVF 2. Acute kidney injury versus chronic kidney disease- improving - Likely prerenal given evidence of dehydration - Nephrology consultation appreciated - Continue IV fluids 3. Hypernatremia- improving - Likely secondary to dehydration - No neurological symptoms appreciated 4. Dementia - At baseline per daughter, able to answer questions but does not have full insight into his medical care - has been progressively worsening 5. Dyslipidemia - continue on statin 6. Hypertension - restart home hydralazine dosage 7. Diabetes mellitus - A1c noted - hold metformin 8. Hyperparathyroidism - Sensipar on board 9. Disposition - Will continue IVF hydration and resuscitation - Discussed with daughter possible need for PEG placement if PO intake remains poor. She will consider Result Diagram: 11/24/18 0647 11/23/18 0502 Results 24hrs Laboratory Tests Test 11/23/18 13:07 11/23/18 17:36 11/23/18 21:17 11/24/18 06:47 Bedside Glucose 140 99 103 White Blood Count 8.6 # Red Blood Count 3.81 L Hemoglobin 12.0 L Hematocrit 38.6 L Mean Corpuscular Volume 101.3 H Mean Corpuscular 31.5 Hemoglobin Mean Corpuscular 31.1 L Hemoglobin Concent Red Cell Distribution 14.7 H Width Platelet Count 130 L Mean Platelet Volume 13.1 H Immature Granulocytes % 0.300 Neutrophils % 76.1 Lymphocytes % 10.0 L Monocytes % 10.1 Eosinophils % 2.9 Basophils % 0.6 Nucleated Red Blood 0.0 Cells % Immature Granulocytes # 0.030 Neutrophils # 6.5 Lymphocytes # 0.9 Monocytes # 0.9 Eosinophils # 0.3 Basophils # 0.1 Nucleated Red Blood 0.0 Cells # Test 11/24/18 08:12 Bedside Glucose 105 Subjective 24 Hr Interval Summary Free Text/Dictation Patient denies any issues and daughter at bedside. Still with poor appetite and plan of care discussed with daughter. Exam/Review of Systems Exam Vitals Vital Signs Date Temp Pulse Resp B/P (MAP) Pulse Ox O2 O2 Flow FiO2 Time Delivery Rate 11/24/18 97.8 100 20 164/75 98 08:00 (104) 11/22/18 Room Air 14:39 Intake and Output 11/23/18 11/23/18 11/24/18 1414:59 22:59 06:59 IntakeIntake Total 40 ml 1300 ml 600 ml OutputOutput Total 650 ml BalanceBalance 40 ml 650 ml 600 ml Exam General: Patient is laying in bed, extremely cachectic Neck: Supple, nontender, midline Respiratory: Clear to auscultation bilaterally. no wheezing Cardiovascular: regular rate and rhythm, no obvious murmurs Gastrointestinal: soft, non-tender to palpation, bowel sounds heard. Neurological: Moves all extremities spontaneously,diffuse muscle wasting Skin: No new skin lesions Results Results 24hrs Laboratory Tests Test 11/23/18 13:07 11/23/18 17:36 11/23/18 21:17 11/24/18 06:47 Bedside Glucose 140 99 103 White Blood Count 8.6 # Red Blood Count 3.81 L Hemoglobin 12.0 L Hematocrit 38.6 L Mean Corpuscular Volume 101.3 H Mean Corpuscular 31.5 Hemoglobin Mean Corpuscular 31.1 L Hemoglobin Concent Red Cell Distribution 14.7 H Width Platelet Count 130 L Mean Platelet Volume 13.1 H Immature Granulocytes % 0.300 Neutrophils % 76.1 Lymphocytes % 10.0 L Monocytes % 10.1 Eosinophils % 2.9 Basophils % 0.6 Nucleated Red Blood 0.0 Cells % Immature Granulocytes # 0.030 Neutrophils # 6.5 Lymphocytes # 0.9 Monocytes # 0.9 Eosinophils # 0.3 Basophils # 0.1 Nucleated Red Blood 0.0 Cells # Test 11/24/18 08:12 Bedside Glucose 105 Medications Medication Current Medications IV Flush (NS 3 ml) 3 ml PER PROTOCOL IV ; Start 11/22/18 at 12:30 Ondansetron HCl (Zofran Inj) 4 mg Q6H PRN IV NAUSEA/VOMITING; Start 11/22/18 at 12:30 Acetaminophen (Tylenol Tab) 650 mg Q6H PRN PO .PAIN 1-3 OR TEMP; Start 11/22/18 at 12:30 Pantoprazole (Protonix Iv) 40 mg DAILY@06 IV Last administered on 11/24/18at 05:27; Admin Dose 40 MG; Start 11/23/18 at 06:00 Diagnostic Test (Pha) (Accu-Chek) 1 ea 02 XX ; Start 11/23/18 at 02:00 Miscellaneous Information 1 ea NOTE XX ; Start 11/22/18 at 13:00 Glucose (Glutose) 15 gm Q15M PRN PO DECREASED GLUCOSE; Start 11/22/18 at 13:00 Glucose (Glutose) 22.5 gm Q15M PRN PO DECREASED GLUCOSE; Start 11/22/18 at 13:00 Dextrose (D50w Syringe) 25 ml Q15M PRN IV DECREASED GLUCOSE; Start 11/22/18 at 13:00 Dextrose (D50w Syringe) 50 ml Q15M PRN IV DECREASED GLUCOSE; Start 11/22/18 at 13:00 Glucagon (Glucagen) 1 mg Q15M PRN IM DECREASED GLUCOSE; Start 11/22/18 at 13:00 Glucose (Glutose) 15 gm Q15M PRN BUCCAL DECREASED GLUCOSE; Start 11/22/18 at 13:00 Sodium Chloride 1,000 ml @ 80 mls/hr [id number] IV Last administered on 11/23/18at 21:29; Admin Dose 80 MLS/HR; Start 11/22/18 at 17:00 Allopurinol (Zyloprim) 100 mg BID PO Last administered on 11/24/18at 09:15; Admin Dose 100 MG; Start 11/23/18 at 21:00 Insulin Aspart (Novolog Insulin Pen) NOVOLOG *MILD* ALGORITHM AC MEALS AND BEDTIME SC ; Start 11/23/18 at 17:35 Atorvastatin Calcium (Lipitor) 40 mg DAILY PO Last administered on 11/24/18at 09:14; Admin Dose 40 MG; Start 11/24/18 at 09:00 Cinacalcet (Sensipar) 60 mg BID PO Last administered on 11/24/18at 09:15; Admin Dose 60 MG; Start 11/23/18 at 21:00 Clopidogrel Bisulfate (plaVIX) 75 mg DAILY PO Last administered on 11/24/18at 09:14; Admin Dose 75 MG; Start 11/24/18 at 09:00 HUSSEIN VENEGAS MD Nov 24, 2018 09:21
--- NOTE | 2018-11-24 09:43 | CONS ---
Assessment/Plan Assessment/Plan Assessment/Plan (Daily) Failure to thrive Profound dehydration Prerenal azotemia Cachexia Loss of appetite History of hypertension History of hyperlipidemia Mild to moderate dementia Long conversation with patient's daughter was confirmed the fact that patient has not eaten in 1-2 months barely drinks fluids. He has not had any other major complaints hemoptysis hematemesis melena abdominal discomfort chest pain there is no past medical history of major medical problems. Workup in progress, I have asked family members to think about options for level of care in the event that patient does not significantly improve. I did not carry the conversation further not pending workup. Consultation Date/Type/Reason Admit Date/Time Nov 22, 2018 at 12:06 Date/Time of Note DATE: 11/24/18 TIME: 09:32 Hx of Present Illness Reviewed patient's medical records and spoke to his daughter. Apparently he has had a rapid decline in his overall clinical condition for the last 3 months prior to his presentation patient has failed to eat and drink and has lost a tremendous amount of weight within the last month. He has been seen by his primary care physician who diagnosis with hypercalcemia which may have been related to his weight loss and his appetite loss. But there were no other tests that were done such as CT scans other than noninvasive scans that were done to ascertain whether or not patient had some other serious medical disorder that may account for his rapid decline in his overall clinical condition. Patient is a very poor historian and his daughter tells me that he was a heavy smoker at one time although patient states he never smoked. Other medical problems that he presented to [facility] with renal failure with a creatinine 121 and a creatinine 121 and creatinine 3.05 2157 potassium 5.2 chloride 110 bicarbonate 25 calcium of 11.6. Other studies renal ultrasound CT scan chest x-ray were fairly unremarkable. Patient has no complaints of nausea vomiting fevers chills chest pain shortness of breath cough hemoptysis bright red blood per rectum from the story I can ascertain from him but once again he is a poor historian with a history of mild to moderate dementia. That information was taken from family members, patient's daughter. Patient's family have never spoke about ongoing level of care or interventions in the event that patient became critically ill. Patient is a poor historian all information is taken from his daughter Past Medical History Medical History: coronary artery disease, diabetes, high cholesterol, hypertension, other (dementia ) Home Meds Reported Medications Hydralazine Hcl* (Hydralazine Hcl*) 50 Mg Tab, 50 MG PO BID, #90 TAB 11/22/18 Clopidogrel Bisulfate (Clopidogrel) 75 Mg Tablet, 75 MG PO DAILY, #30 TAB 11/22/18 Metformin* (Glucophage*) 1,000 Mg Tablet, 1000 MG PO WITH BREAKFAST DINNE, #30 TAB 11/22/18 Atorvastatin* (Atorvastatin*) 40 Mg Tablet, 40 MG PO DAILY, #30 TAB 11/22/18 Cinacalcet* (Sensipar*) 60 Mg Tablet, 60 MG PO BID, TAB 11/22/18 Medications Current Medications IV Flush (NS 3 ml) 3 ml PER PROTOCOL IV ; Start 11/22/18 at 12:30 Ondansetron HCl (Zofran Inj) 4 mg Q6H PRN IV NAUSEA/VOMITING; Start 11/22/18 at 12:30 Acetaminophen (Tylenol Tab) 650 mg Q6H PRN PO .PAIN 1-3 OR TEMP; Start 11/22/18 at 12:30 Pantoprazole (Protonix Iv) 40 mg DAILY@06 IV Last administered on 11/24/18at 05:27; Admin Dose 40 MG; Start 11/23/18 at 06:00 Diagnostic Test (Pha) (Accu-Chek) 1 ea 02 XX ; Start 11/23/18 at 02:00 Miscellaneous Information 1 ea NOTE XX ; Start 11/22/18 at 13:00 Glucose (Glutose) 15 gm Q15M PRN PO DECREASED GLUCOSE; Start 11/22/18 at 13:00 Glucose (Glutose) 22.5 gm Q15M PRN PO DECREASED GLUCOSE; Start 11/22/18 at 13:00 Dextrose (D50w Syringe) 25 ml Q15M PRN IV DECREASED GLUCOSE; Start 11/22/18 at 13:00 Dextrose (D50w Syringe) 50 ml Q15M PRN IV DECREASED GLUCOSE; Start 11/22/18 at 13:00 Glucagon (Glucagen) 1 mg Q15M PRN IM DECREASED GLUCOSE; Start 11/22/18 at 13:00 Glucose (Glutose) 15 gm Q15M PRN BUCCAL DECREASED GLUCOSE; Start 11/22/18 at 13:00 Sodium Chloride 1,000 ml @ 80 mls/hr [id number] IV Last administered on 11/23/18at 21:29; Admin Dose 80 MLS/HR; Start 11/22/18 at 17:00 Allopurinol (Zyloprim) 100 mg BID PO Last administered on 11/23/18at 21:20; Admin Dose 100 MG; Start 11/23/18 at 21:00 Insulin Aspart (Novolog Insulin Pen) NOVOLOG *MILD* ALGORITHM AC MEALS AND BEDTIME SC ; Start 11/23/18 at 17:35 Atorvastatin Calcium (Lipitor) 40 mg DAILY PO ; Start 11/24/18 at 09:00 Cinacalcet (Sensipar) 60 mg BID PO Last administered on 11/23/18at 21:22; Admin Dose 60 MG; Start 11/23/18 at 21:00 Clopidogrel Bisulfate (plaVIX) 75 mg DAILY PO ; Start 11/24/18 at 09:00 Allergies: Coded Allergies: No Known Allergy (Unverified , 11/22/18) Past Surgical History Past Surgical Hx: other (Coronary angiogram with stent placement ) Family History Significant Family History: COPD, diabetes, hypertension Social History Alcohol Use: other (Unknown) Smoking Status: Former smoker Drug Use: none Exam/Review of Systems Exam Vitals Vital Signs Date Temp Pulse Resp B/P (MAP) Pulse Ox O2 O2 Flow FiO2 Time Delivery Rate 11/24/18 97.8 100 20 164/75 98 08:00 (104) 11/22/18 Room Air 14:39 Intake and Output 11/23/18 11/23/18 11/24/18 1515:00 23:00 07:00 IntakeIntake Total 40 ml 1300 ml 600 ml OutputOutput Total 650 ml BalanceBalance 40 ml 650 ml 600 ml Constitutional: alert, frail Psych: no complaints, confusion Head: normocephalic, atraumatic Eyes: nl conjunctiva, EOMI, nl lids, nl sclera, PERRL Respiratory: clear to auscultation, normal air movement Cardiovascular: regular rate and rhythm, nl pulses 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, nl mental status, nl speech, confused, lethargic Results Result Diagram: 11/24/18 0647 11/23/18 0502 Results 24hrs Laboratory Tests Test 11/23/18 13:07 11/23/18 17:36 11/23/18 21:17 11/24/18 06:47 Bedside Glucose 140 99 103 White Blood Count 8.6 # Red Blood Count 3.81 L Hemoglobin 12.0 L Hematocrit 38.6 L Mean Corpuscular Volume 101.3 H Mean Corpuscular 31.5 Hemoglobin Mean Corpuscular 31.1 L Hemoglobin Concent Red Cell Distribution 14.7 H Width Platelet Count 130 L Mean Platelet Volume 13.1 H Immature Granulocytes % 0.300 Neutrophils % 76.1 Lymphocytes % 10.0 L Monocytes % 10.1 Eosinophils % 2.9 Basophils % 0.6 Nucleated Red Blood 0.0 Cells % Immature Granulocytes # 0.030 Neutrophils # 6.5 Lymphocytes # 0.9 Monocytes # 0.9 Eosinophils # 0.3 Basophils # 0.1 Nucleated Red Blood 0.0 Cells # Test 11/24/18 08:12 Bedside Glucose 105 Medications Medication Current Medications IV Flush (NS 3 ml) 3 ml PER PROTOCOL IV ; Start 11/22/18 at 12:30 Ondansetron HCl (Zofran Inj) 4 mg Q6H PRN IV NAUSEA/VOMITING; Start 11/22/18 at 12:30 Acetaminophen (Tylenol Tab) 650 mg Q6H PRN PO .PAIN 1-3 OR TEMP; Start 11/22/18 at 12:30 Pantoprazole (Protonix Iv) 40 mg DAILY@06 IV Last administered on 11/24/18at 05:27; Admin Dose 40 MG; Start 11/23/18 at 06:00 Diagnostic Test (Pha) (Accu-Chek) 1 ea 02 XX ; Start 11/23/18 at 02:00 Miscellaneous Information 1 ea NOTE XX ; Start 11/22/18 at 13:00 Glucose (Glutose) 15 gm Q15M PRN PO DECREASED GLUCOSE; Start 11/22/18 at 13:00 Glucose (Glutose) 22.5 gm Q15M PRN PO DECREASED GLUCOSE; Start 11/22/18 at 13:00 Dextrose (D50w Syringe) 25 ml Q15M PRN IV DECREASED GLUCOSE; Start 11/22/18 at 13:00 Dextrose (D50w Syringe) 50 ml Q15M PRN IV DECREASED GLUCOSE; Start 11/22/18 at 13:00 Glucagon (Glucagen) 1 mg Q15M PRN IM DECREASED GLUCOSE; Start 11/22/18 at 13:00 Glucose (Glutose) 15 gm Q15M PRN BUCCAL DECREASED GLUCOSE; Start 11/22/18 at 13:00 Sodium Chloride 1,000 ml @ 80 mls/hr [id number] IV Last administered on 11/23/18at 21:29; Admin Dose 80 MLS/HR; Start 11/22/18 at 17:00 Allopurinol (Zyloprim) 100 mg BID PO Last administered on 11/23/18at 21:20; Admin Dose 100 MG; Start 11/23/18 at 21:00 Insulin Aspart (Novolog Insulin Pen) NOVOLOG *MILD* ALGORITHM AC MEALS AND BEDTIME SC ; Start 11/23/18 at 17:35 Atorvastatin Calcium (Lipitor) 40 mg DAILY PO ; Start 11/24/18 at 09:00 Cinacalcet (Sensipar) 60 mg BID PO Last administered on 11/23/18at 21:22; Admin Dose 60 MG; Start 11/23/18 at 21:00 Clopidogrel Bisulfate (plaVIX) 75 mg DAILY PO ; Start 11/24/18 at 09:00 YUMIKO KAUR Nov 24, 2018 09:42
[2018-11-24] MEDS: SOD CHLORIDE 0.45% 1,000 ML IV SCH (11:56)
[2018-11-24 14:00] VITALS: BP 148/72; PULSE 86; RESP 18
[2018-11-24] MEDS ORDERED: MAGNESIUM SULFATE 2 GM/50 ML 50 ML IVPB SCH (16:00)
--- NOTE | 2018-11-24 18:30 | CONS ---
Assessment/Plan Assessment/Plan Assessment/Plan (Daily) 1. acute kidney injury on possible CKD due to ATN from prerenal azotemia from dehydration 2. Severe dehydration due to Decreased PO , failure to thrive 3. Acute hypernatremia 4. Hyperkalemia 5. H/o Previosu CAD s/p stent placement 6. H/o Dementia 7. H/o Hypertension 8. H/o Hypothyroidism Plan: BUN/Cr improved to 77/1.69, Na 153, uric acid 16.2- on allopurinol 100mg PO BID , BP stable IVF 1/2 NS at 80 cc/hr for dehydration - plan is to decrease rate to 50 cc/hr tomorrow AM Renal US c/w medical renal disease, left kidney not visualized magnesium sulfate 2 gram IV x 1 dose today will follow up Consultation Date/Type/Reason Admit Date/Time Nov 22, 2018 at 12:06 Initial Consult Date 11/22/18 Type of Consult NEPHROLOGY Requesting Provider: BRADLEY RINCON Date/Time of Note DATE: 11/24/18 TIME: 18:30 Exam/Review of Systems Exam Vitals Vital Signs Date Temp Pulse Resp B/P (MAP) Pulse Ox O2 O2 Flow FiO2 Time Delivery Rate 11/24/18 97.9 86 18 148/72 94 14:00 (97) 11/22/18 Room Air 14:39 Intake and Output 11/23/18 11/23/18 11/24/18 1515:00 23:00 07:00 IntakeIntake Total 40 ml 1300 ml 600 ml OutputOutput Total 650 ml BalanceBalance 40 ml 650 ml 600 ml Exam Constitutional: distress, frail, other (cachectic ) Respiratory: clear to auscultation, normal air movement, diminished breath sounds Cardiovascular: regular rate and rhythm, nl pulses Gastrointestinal: soft, non-tender Musculoskeletal: joint tenderness, muscle weakness, swelling Extremities: normal pulses Neurological: other (weak, lethargic ) Results Result Diagram: 11/24/18 0647 11/24/18 0647 Results 24hrs Laboratory Tests Test 11/23/18 21:17 11/24/18 06:47 11/24/18 08:12 11/24/18 12:30 Bedside Glucose 103 105 115 White Blood Count 8.6 # Red Blood Count 3.81 L Hemoglobin 12.0 L Hematocrit 38.6 L Mean Corpuscular Volume 101.3 H Mean Corpuscular 31.5 Hemoglobin Mean Corpuscular 31.1 L Hemoglobin Concent Red Cell Distribution 14.7 H Width Platelet Count 130 L Mean Platelet Volume 13.1 H Immature Granulocytes % 0.300 Neutrophils % 76.1 Lymphocytes % 10.0 L Monocytes % 10.1 Eosinophils % 2.9 Basophils % 0.6 Nucleated Red Blood 0.0 Cells % Immature Granulocytes # 0.030 Neutrophils # 6.5 Lymphocytes # 0.9 Monocytes # 0.9 Eosinophils # 0.3 Basophils # 0.1 Nucleated Red Blood 0.0 Cells # Sodium Level 153 H Potassium Level 4.0 Chloride Level 116 H Carbon Dioxide Level 26 Anion Gap 11 Blood Urea Nitrogen 77 #H Creatinine 1.69 H Glucose Level 93 Calcium Level 10.4 H Phosphorus Level 3.1 Magnesium Level 1.6 L Albumin 3.3 Test 11/24/18 17:47 Bedside Glucose 134 Medications Medication Current Medications IV Flush (NS 3 ml) 3 ml PER PROTOCOL IV ; Start 11/22/18 at 12:30 Ondansetron HCl (Zofran Inj) 4 mg Q6H PRN IV NAUSEA/VOMITING; Start 11/22/18 at 12:30 Acetaminophen (Tylenol Tab) 650 mg Q6H PRN PO .PAIN 1-3 OR TEMP; Start 11/22/18 at 12:30 Pantoprazole (Protonix Iv) 40 mg DAILY@06 IV Last administered on 11/24/18at 05:27; Admin Dose 40 MG; Start 11/23/18 at 06:00 Diagnostic Test (Pha) (Accu-Chek) 1 ea 02 XX ; Start 11/23/18 at 02:00 Miscellaneous Information 1 ea NOTE XX ; Start 11/22/18 at 13:00 Glucose (Glutose) 15 gm Q15M PRN PO DECREASED GLUCOSE; Start 11/22/18 at 13:00 Glucose (Glutose) 22.5 gm Q15M PRN PO DECREASED GLUCOSE; Start 11/22/18 at 13:00 Dextrose (D50w Syringe) 25 ml Q15M PRN IV DECREASED GLUCOSE; Start 11/22/18 at 13:00 Dextrose (D50w Syringe) 50 ml Q15M PRN IV DECREASED GLUCOSE; Start 11/22/18 at 13:00 Glucagon (Glucagen) 1 mg Q15M PRN IM DECREASED GLUCOSE; Start 11/22/18 at 13:00 Glucose (Glutose) 15 gm Q15M PRN BUCCAL DECREASED GLUCOSE; Start 11/22/18 at 13:00 Sodium Chloride 1,000 ml @ 80 mls/hr [id number] IV Last administered on 11/24/18at 11:56; Admin Dose 80 MLS/HR; Start 11/22/18 at 17:00 Allopurinol (Zyloprim) 100 mg BID PO Last administered on 11/24/18 09:15; Admin Dose 100 MG; Start 11/23/18 at 21:00 Insulin Aspart (Novolog Insulin Pen) NOVOLOG *MILD* ALGORITHM AC MEALS AND BEDTIME SC ; Start 11/23/18 at 17:35 Atorvastatin Calcium (Lipitor) 40 mg DAILY PO Last administered on 11/24/18 09:14; Admin Dose 40 MG; Start 11/24/18 at 09:00 Cinacalcet (Sensipar) 60 mg BID PO Last administered on 11/24/18 09:15; Admin Dose 60 MG; Start 11/23/18 at 21:00 Clopidogrel Bisulfate (plaVIX) 75 mg DAILY PO Last administered on 11/24/18 09:14; Admin Dose 75 MG; Start 11/24/18 at 09:00 Hydralazine HCl (Apresoline) 50 mg BID PO ; Start 11/24/18 at 21:00 FREDI FLORES MD Nov 24, 2018 18:30
[2018-11-24 20:21] VITALS: BP 129/60; PULSE 82; RESP 18
[2018-11-25] MEDS: ACCU-CHEK XX SCH (02:00)
[2018-11-25] MEDS: SOD CHLORIDE 0.45% 1,000 ML IV SCH ×2 (02:11→07:30)
[2018-11-25 02:58] VITALS: BP 124/58; PULSE 88; RESP 18
[2018-11-25] MEDS: PANTOPRAZOLE 40 MG INJ IV SCH (06:03)
[2018-11-25 08:00] VITALS: BP 125/64; PULSE 80; RESP 18
[2018-11-25] MEDS: INSULIN ASPART [NOVOLOG] 3 ML PEN SC SCH ×4 (08:34→20:57)
--- NOTE | 2018-11-25 08:41 | CONS ---
Assessment/Plan Assessment/Plan Assessment/Plan (Daily) 1. acute kidney injury on possible CKD due to ATN from prerenal azotemia from dehydration 2. Severe dehydration due to Decreased PO , failure to thrive 3. Acute hypernatremia 4. Hyperkalemia 5. H/o Previosu CAD s/p stent placement 6. H/o Dementia 7. H/o Hypertension 8. H/o Hypothyroidism Plan: BUN/Cr improved to 51/1.34, Na 149, d/c IVF 1/2 NS, start D5W with KCl 20mEQ at 75 cc/hr uric acid 16.2- on allopurinol 100mg PO BID , BP stable Renal US c/w medical renal disease, left kidney not visualized will follow up Consultation Date/Type/Reason Admit Date/Time Nov 22, 2018 at 12:06 Initial Consult Date 11/22/18 Type of Consult NEPHROLOGY Requesting Provider: BRADLEY RINCON Date/Time of Note DATE: 11/25/18 TIME: 08:39 Exam/Review of Systems Exam Vitals Vital Signs Date Temp Pulse Resp B/P (MAP) Pulse Ox O2 O2 Flow FiO2 Time Delivery Rate 11/25/18 97.8 88 18 124/58 98 02:58 (80) 11/22/18 Room Air 14:39 Intake and Output 11/24/18 11/24/18 11/25/18 1515:00 23:00 07:00 IntakeIntake Total 650 ml 400 ml 1240 ml OutputOutput Total 400 ml 600 ml 200 ml BalanceBalance 250 ml -200 ml 1040 ml Exam Constitutional: distress, frail, Respiratory: clear to auscultation, normal air movement, diminished breath sounds Cardiovascular: regular rate and rhythm, nl pulses Gastrointestinal: soft, non-tender Musculoskeletal: joint tenderness, muscle weakness, swelling Extremities: normal pulses Neurological: non focal, weak Results Result Diagram: 11/25/18 0556 11/25/18 0556 Results 24hrs Laboratory Tests Test 11/24/18 12:30 11/24/18 17:47 11/24/18 21:21 11/25/18 05:56 Bedside Glucose 115 134 110 White Blood Count 6.9 Red Blood Count 3.80 L Hemoglobin 11.6 L Hematocrit 36.9 L Mean Corpuscular Volume 97.1 Mean Corpuscular 30.5 Hemoglobin Mean Corpuscular 31.4 L Hemoglobin Concent Red Cell Distribution 14.6 H Width Platelet Count 121 L Mean Platelet Volume 13.3 H Immature Granulocytes % 0.300 Neutrophils % 75.2 Lymphocytes % 10.3 L Monocytes % 11.1 H Eosinophils % 2.7 Basophils % 0.4 Nucleated Red Blood 0.0 Cells % Immature Granulocytes # 0.020 Neutrophils # 5.2 Lymphocytes # 0.7 L Monocytes # 0.8 Eosinophils # 0.2 Basophils # 0.0 Nucleated Red Blood 0.0 Cells # Sodium Level 149 H Potassium Level 3.3 L Chloride Level 116 H Carbon Dioxide Level 27 Anion Gap 6 Blood Urea Nitrogen 51 H Creatinine 1.34 H Glucose Level 93 Calcium Level 9.6 Phosphorus Level 2.2 L Magnesium Level 2.0 Albumin 3.1 L Test 11/25/18 08:33 Bedside Glucose 88 Medications Medication Current Medications IV Flush (NS 3 ml) 3 ml PER PROTOCOL IV ; Start 11/22/18 at 12:30 Ondansetron HCl (Zofran Inj) 4 mg Q6H PRN IV NAUSEA/VOMITING; Start 11/22/18 at 12:30 Acetaminophen (Tylenol Tab) 650 mg Q6H PRN PO .PAIN 1-3 OR TEMP; Start 11/22/18 at 12:30 Pantoprazole (Protonix Iv) 40 mg DAILY@06 IV Last administered on 11/25/18at 06:03; Admin Dose 40 MG; Start 11/23/18 at 06:00 Diagnostic Test (Pha) (Accu-Chek) 1 ea 02 XX ; Start 11/23/18 at 02:00 Miscellaneous Information 1 ea NOTE XX ; Start 11/22/18 at 13:00 Glucose (Glutose) 15 gm Q15M PRN PO DECREASED GLUCOSE; Start 11/22/18 at 13:00 Glucose (Glutose) 22.5 gm Q15M PRN PO DECREASED GLUCOSE; Start 11/22/18 at 13:00 Dextrose (D50w Syringe) 25 ml Q15M PRN IV DECREASED GLUCOSE; Start 11/22/18 at 13:00 Dextrose (D50w Syringe) 50 ml Q15M PRN IV DECREASED GLUCOSE; Start 11/22/18 at 13:00 Glucagon (Glucagen) 1 mg Q15M PRN IM DECREASED GLUCOSE; Start 11/22/18 at 13:00 Glucose (Glutose) 15 gm Q15M PRN BUCCAL DECREASED GLUCOSE; Start 11/22/18 at 13:00 Sodium Chloride 1,000 ml @ 80 mls/hr [id number] IV Last administered on 11/25/18at 02:11; Admin Dose 80 MLS/HR; Start 11/22/18 at 17:00 Allopurinol (Zyloprim) 100 mg BID PO Last administered on 11/24/18 21:22; Admin Dose 100 MG; Start 11/23/18 at 21:00 Insulin Aspart (Novolog Insulin Pen) NOVOLOG *MILD* ALGORITHM AC MEALS AND BEDTIME SC ; Start 11/23/18 at 17:35 Atorvastatin Calcium (Lipitor) 40 mg DAILY PO Last administered on 11/24/18 09:14; Admin Dose 40 MG; Start 11/24/18 at 09:00 Cinacalcet (Sensipar) 60 mg BID PO Last administered on 11/24/18 21:22; Admin Dose 60 MG; Start 11/23/18 at 21:00 Clopidogrel Bisulfate (plaVIX) 75 mg DAILY PO Last administered on 11/24/18 09:14; Admin Dose 75 MG; Start 11/24/18 at 09:00 Hydralazine HCl (Apresoline) 50 mg BID PO Last administered on 11/24/18 21:23; Admin Dose 50 MG; Start 11/24/18 at 21:00 FREDI FLORES MD Nov 25, 2018 08:41
--- NOTE | 2018-11-25 09:12 | PN ---
Date/Time of Note Date/Time of Note DATE: 11/25/18 TIME: 09:12 Assessment/Plan VTE Prophylaxis Risk score (from Ns)>0 risk: 5 SCD applied (from Ns): Yes Pharmacological prophylaxis: LMWH Lines/Catheters IV Catheter Type (from Nrs): Peripheral IV Urinary Cath still in place: Yes Reason Cath still needed: urinary retention Assessment/Plan Assessment/Plan 1. Failure to thrive - ST on board and appreciate consultation - Patient still with poor intake but tolerating current diet. Discussed PEG placement with daughter and she will consider based on his clinical progression - Palliative consultation appreciated - Patient tolerating small amounts of pureed diet. Will continue on IVF 2. Acute kidney injury versus chronic kidney disease- improving - Likely prerenal given evidence of dehydration - Nephrology consultation appreciated - Continue IV fluids 3. Hypernatremia- improving - Likely secondary to dehydration - No neurological symptoms appreciated 4. Dementia - At baseline per daughter, able to answer questions but does not have full in sight into his medical care - has been progressively worsening 5. Dyslipidemia - continue on statin 6. Hypertension - continue home medications 7. Diabetes mellitus - A1c noted - hold metformin 8. Hyperparathyroidism - Sensipar on board 9. Disposition - Will continue monitoring for improvement in electrolytes and renal function Result Diagram: 11/25/18 0556 11/25/18 0556 Results 24hrs Laboratory Tests Test 11/24/18 12:30 11/24/18 17:47 11/24/18 21:21 11/25/18 05:56 Bedside Glucose 115 134 110 White Blood Count 6.9 Red Blood Count 3.80 L Hemoglobin 11.6 L Hematocrit 36.9 L Mean Corpuscular Volume 97.1 Mean Corpuscular 30.5 Hemoglobin Mean Corpuscular 31.4 L Hemoglobin Concent Red Cell Distribution 14.6 H Width Platelet Count 121 L Mean Platelet Volume 13.3 H Immature Granulocytes % 0.300 Neutrophils % 75.2 Lymphocytes % 10.3 L Monocytes % 11.1 H Eosinophils % 2.7 Basophils % 0.4 Nucleated Red Blood 0.0 Cells % Immature Granulocytes # 0.020 Neutrophils # 5.2 Lymphocytes # 0.7 L Monocytes # 0.8 Eosinophils # 0.2 Basophils # 0.0 Nucleated Red Blood 0.0 Cells # Sodium Level 149 H Potassium Level 3.3 L Chloride Level 116 H Carbon Dioxide Level 27 Anion Gap 6 Blood Urea Nitrogen 51 H Creatinine 1.34 H Glucose Level 93 Calcium Level 9.6 Phosphorus Level 2.2 L Magnesium Level 2.0 Albumin 3.1 L Test 11/25/18 08:33 Bedside Glucose 88 Subjective 24 Hr Interval Summary Free Text/Dictation Patient tired this am but states he's doing okay. No new complaints. Exam/Review of Systems Exam Vitals Vital Signs Date Temp Pulse Resp B/P (MAP) Pulse Ox O2 O2 Flow FiO2 Time Delivery Rate 11/25/18 98.8 80 18 125/64 96 08:00 (84) 11/22/18 Room Air 14:39 Intake and Output 11/24/18 11/24/18 11/25/18 1515:00 23:00 07:00 IntakeIntake Total 650 ml 400 ml 1240 ml OutputOutput Total 400 ml 600 ml 200 ml BalanceBalance 250 ml -200 ml 1040 ml Exam General: Patient is laying in bed, cachectic Respiratory: Clear to auscultation bilaterally. no wheezing Cardiovascular: regular rate and rhythm, no obvious murmurs Gastrointestinal: soft, non-tender to palpation, bowel sounds heard. Neurological: Moves all extremities spontaneously, diffuse muscle wasting Skin: No new skin lesions Results Results 24hrs Laboratory Tests Test 11/24/18 12:30 11/24/18 17:47 11/24/18 21:21 11/25/18 05:56 Bedside Glucose 115 134 110 White Blood Count 6.9 Red Blood Count 3.80 L Hemoglobin 11.6 L Hematocrit 36.9 L Mean Corpuscular Volume 97.1 Mean Corpuscular 30.5 Hemoglobin Mean Corpuscular 31.4 L Hemoglobin Concent Red Cell Distribution 14.6 H Width Platelet Count 121 L Mean Platelet Volume 13.3 H Immature Granulocytes % 0.300 Neutrophils % 75.2 Lymphocytes % 10.3 L Monocytes % 11.1 H Eosinophils % 2.7 Basophils % 0.4 Nucleated Red Blood 0.0 Cells % Immature Granulocytes # 0.020 Neutrophils # 5.2 Lymphocytes # 0.7 L Monocytes # 0.8 Eosinophils # 0.2 Basophils # 0.0 Nucleated Red Blood 0.0 Cells # Sodium Level 149 H Potassium Level 3.3 L Chloride Level 116 H Carbon Dioxide Level 27 Anion Gap 6 Blood Urea Nitrogen 51 H Creatinine 1.34 H Glucose Level 93 Calcium Level 9.6 Phosphorus Level 2.2 L Magnesium Level 2.0 Albumin 3.1 L Test 11/25/18 08:33 Bedside Glucose 88 Medications Medication Current Medications IV Flush (NS 3 ml) 3 ml PER PROTOCOL IV ; Start 11/22/18 at 12:30 Ondansetron HCl (Zofran Inj) 4 mg Q6H PRN IV NAUSEA/VOMITING; Start 11/22/18 at 12:30 Acetaminophen (Tylenol Tab) 650 mg Q6H PRN PO .PAIN 1-3 OR TEMP; Start 11/22/18 at 12:30 Pantoprazole (Protonix Iv) 40 mg DAILY@06 IV Last administered on 11/25/18at 06:03; Admin Dose 40 MG; Start 11/23/18 at 06:00 Diagnostic Test (Pha) (Accu-Chek) 1 ea 02 XX ; Start 11/23/18 at 02:00 Miscellaneous Information 1 ea NOTE XX ; Start 11/22/18 at 13:00 Glucose (Glutose) 15 gm Q15M PRN PO DECREASED GLUCOSE; Start 11/22/18 at 13:00 Glucose (Glutose) 22.5 gm Q15M PRN PO DECREASED GLUCOSE; Start 11/22/18 at 13:00 Dextrose (D50w Syringe) 25 ml Q15M PRN IV DECREASED GLUCOSE; Start 11/22/18 at 13:00 Dextrose (D50w Syringe) 50 ml Q15M PRN IV DECREASED GLUCOSE; Start 11/22/18 at 13:00 Glucagon (Glucagen) 1 mg Q15M PRN IM DECREASED GLUCOSE; Start 11/22/18 at 13:00 Glucose (Glutose) 15 gm Q15M PRN BUCCAL DECREASED GLUCOSE; Start 11/22/18 at 13:00 Allopurinol (Zyloprim) 100 mg BID PO Last administered on 11/24/18at 21:22; Admin Dose 100 MG; Start 11/23/18 at 21:00 Insulin Aspart (Novolog Insulin Pen) NOVOLOG *MILD* ALGORITHM AC MEALS AND BEDTIME SC ; Start 11/23/18 at 17:35 Atorvastatin Calcium (Lipitor) 40 mg DAILY PO Last administered on 11/24/18at 09:14; Admin Dose 40 MG; Start 11/24/18 at 09:00 Cinacalcet (Sensipar) 60 mg BID PO Last administered on 11/24/18at 21:22; Admin Dose 60 MG; Start 11/23/18 at 21:00 Clopidogrel Bisulfate (plaVIX) 75 mg DAILY PO Last administered on 11/24/18at 09:14; Admin Dose 75 MG; Start 11/24/18 at 09:00 Hydralazine HCl (Apresoline) 50 mg BID PO Last administered on 11/24/18at 21:23; Admin Dose 50 MG; Start 11/24/18 at 21:00 Potassium Chloride/Dextrose 1,000 ml @ 75 mls/hr [id number] IV ; Start 11/25/18 at 10:30 Potassium Phosphate 40 meq/ Sodium Chloride 259.0909 ml @ 64.773 m... ONCE ONCE IVPB ; Start 11/25/18 at 10:00; Stop 11/25/18 at 13:59 HUSSEIN VENEGAS MD Nov 25, 2018 09:12
[2018-11-25] MEDS: ALLOPURINOL 100 MG TAB PO SCH ×2 (09:23→20:57)
[2018-11-25] MEDS: BALSAM PERU/CASTOR OIL 60 GM TUBE TOP SCH ×2 (09:24→21:12)
[2018-11-25] MEDS: CINACALCET 30 MG TAB PO SCH ×2 (09:24→20:57)
[2018-11-25] MEDS: CLOPIDOGREL 75 MG TAB PO SCH (09:24)
[2018-11-25] MEDS: ATORVASTATIN 40 MG TAB PO SCH (09:24)
[2018-11-25] MEDS ORDERED: POTASSIUM PHOSPHATE 40 MEQ in SOD CHLORIDE 0.9% 250 ML IVPB ONE (10:00)
[2018-11-25] MEDS: D5W + KCL 20 MEQ 1,000 ML IV SCH ×2 (10:05→23:50)
[2018-11-25 14:00] VITALS: BP 120/61; PULSE 20; RESP 20
[2018-11-25 20:55] VITALS: BP 134/59; PULSE 85; RESP 20
[2018-11-26] MEDS: ACCU-CHEK XX SCH (02:00)
[2018-11-26 02:55] VITALS: BP 115/54; PULSE 76; RESP 20
[2018-11-26] MEDS: PANTOPRAZOLE 40 MG INJ IV SCH (06:48)
[2018-11-26] MEDS: D5W + KCL 20 MEQ 1,000 ML IV SCH ×4 (06:49→22:56)
[2018-11-26] MEDS: INSULIN ASPART [NOVOLOG] 3 ML PEN SC SCH ×4 (07:30→21:00)
[2018-11-26 08:00] VITALS: BP 114/57; PULSE 81; RESP 20
[2018-11-26] MEDS ORDERED: POTASSIUM CHLORIDE 100 ML IVPB ONE (09:00)
[2018-11-26] MEDS: ALLOPURINOL 100 MG TAB PO SCH ×2 (09:00→21:00)
[2018-11-26] MEDS: ATORVASTATIN 40 MG TAB PO SCH (09:00)
[2018-11-26] MEDS: CINACALCET 30 MG TAB PO SCH ×2 (09:00→21:00)
[2018-11-26] MEDS ORDERED: MAGNESIUM SULFATE 2 GM/50 ML 50 ML IVPB ONE (09:00)
[2018-11-26] MEDS: BALSAM PERU/CASTOR OIL 60 GM TUBE TOP SCH ×2 (09:01→21:05)
[2018-11-26] MEDS: CLOPIDOGREL 75 MG TAB PO SCH (09:01)
[2018-11-26] MEDS ORDERED: POTASSIUM CHLORIDE (SR) 20 MEQ TAB PO STA (11:50)
--- NOTE | 2018-11-26 11:50 | CONS ---
Assessment/Plan Assessment/Plan Assessment/Plan (Daily) 1. acute kidney injury on possible CKD due to ATN from prerenal azotemia from dehydration 2. Severe dehydration due to Decreased PO , failure to thrive 3. Acute hypernatremia 4. Hyperkalemia 5. H/o Previosu CAD s/p stent placement 6. H/o Dementia 7. H/o Hypertension 8. H/o Hypothyroidism Plan: BUN/Cr improved to 38/1.33, Na 142, IVF D5W with KCl 20mEQ at 75 cc/hr uric acid 16.2- on allopurinol 100mg PO BID , BP stable Renal US c/w medical renal disease, left kidney not visualized will follow up Consultation Date/Type/Reason Admit Date/Time Nov 22, 2018 at 12:06 Initial Consult Date 11/22/18 Type of Consult NEPHROLOGY Requesting Provider: BRADLEY RINCON Date/Time of Note DATE: 11/26/18 TIME: 11:50 Exam/Review of Systems Exam Vitals Vital Signs Date Temp Pulse Resp B/P (MAP) Pulse Ox O2 O2 Flow FiO2 Time Delivery Rate 11/26/18 98.8 81 20 114/57 98 08:00 (76) 11/22/18 Room Air 14:39 Intake and Output 11/25/18 11/25/18 11/26/18 1515:00 23:00 07:00 IntakeIntake Total 919.0909 ml 622 ml 728 ml OutputOutput Total 450 ml 500 ml BalanceBalance 919.0909 ml 172 ml 228 ml Exam Constitutional: distress, frail, Respiratory: clear to auscultation, normal air movement, diminished breath sounds Cardiovascular: regular rate and rhythm, nl pulses Gastrointestinal: soft, non-tender Musculoskeletal: joint tenderness, muscle weakness, swelling Extremities: normal pulses Neurological: non focal, weak Results Result Diagram: 11/26/18 0440 11/26/18 0440 Results 24hrs Laboratory Tests Test 11/25/18 12:19 11/25/18 17:37 11/25/18 20:55 11/26/18 04:40 Bedside Glucose 193 134 164 White Blood Count 5.6 Red Blood Count 3.49 L Hemoglobin 10.8 L Hematocrit 34.6 L Mean Corpuscular Volume 99.1 Mean Corpuscular 30.9 Hemoglobin Mean Corpuscular 31.2 L Hemoglobin Concent Red Cell Distribution 14.5 Width Platelet Count 104 L Mean Platelet Volume 13.6 H Immature Granulocytes % 0.400 Neutrophils % 70.9 Lymphocytes % 12.9 L Monocytes % 13.2 H Eosinophils % 2.1 Basophils % 0.5 Nucleated Red Blood 0.0 Cells % Immature Granulocytes # 0.020 Neutrophils # 4.0 Lymphocytes # 0.7 L Monocytes # 0.7 Eosinophils # 0.1 Basophils # 0.0 Nucleated Red Blood 0.0 Cells # Sodium Level 142 Potassium Level 3.4 L Chloride Level 110 Carbon Dioxide Level 26 Anion Gap 6 Blood Urea Nitrogen 38 #H Creatinine 1.33 H Glucose Level 103 Calcium Level 8.5 Phosphorus Level 2.8 Magnesium Level 1.5 L Albumin 2.8 L Test 11/26/18 07:50 Bedside Glucose 94 Medications Medication Current Medications IV Flush (NS 3 ml) 3 ml PER PROTOCOL IV ; Start 11/22/18 at 12:30 Ondansetron HCl (Zofran Inj) 4 mg Q6H PRN IV NAUSEA/VOMITING; Start 11/22/18 at 12:30 Acetaminophen (Tylenol Tab) 650 mg Q6H PRN PO .PAIN 1-3 OR TEMP; Start 11/22/18 at 12:30 Pantoprazole (Protonix Iv) 40 mg DAILY@06 IV Last administered on 11/26/18at 06:48; Admin Dose 40 MG; Start 11/23/18 at 06:00 Diagnostic Test (Pha) (Accu-Chek) 1 ea 02 XX ; Start 11/23/18 at 02:00 Miscellaneous Information 1 ea NOTE XX ; Start 11/22/18 at 13:00 Glucose (Glutose) 15 gm Q15M PRN PO DECREASED GLUCOSE; Start 11/22/18 at 13:00 Glucose (Glutose) 22.5 gm Q15M PRN PO DECREASED GLUCOSE; Start 11/22/18 at 13:00 Dextrose (D50w Syringe) 25 ml Q15M PRN IV DECREASED GLUCOSE; Start 11/22/18 at 13:00 Dextrose (D50w Syringe) 50 ml Q15M PRN IV DECREASED GLUCOSE; Start 11/22/18 at 13:00 Glucagon (Glucagen) 1 mg Q15M PRN IM DECREASED GLUCOSE; Start 11/22/18 at 13:00 Glucose (Glutose) 15 gm Q15M PRN BUCCAL DECREASED GLUCOSE; Start 11/22/18 at 13:00 Allopurinol (Zyloprim) 100 mg BID PO Last administered on 11/26/18 09:00; Admin Dose 100 MG; Start 11/23/18 at 21:00 Insulin Aspart (Novolog Insulin Pen) NOVOLOG *MILD* ALGORITHM AC MEALS AND BEDTIME SC Last administered on 11/25/18 12:21; Admin Dose 2 UNIT; Start 11/23/18 at 17:35 Atorvastatin Calcium (Lipitor) 40 mg DAILY PO Last administered on 11/26/18 09:00; Admin Dose 40 MG; Start 11/24/18 at 09:00 Cinacalcet (Sensipar) 60 mg BID PO Last administered on 11/26/18 09:00; Admin Dose 60 MG; Start 11/23/18 at 21:00 Clopidogrel Bisulfate (plaVIX) 75 mg DAILY PO Last administered on 11/26/18 09:01; Admin Dose 75 MG; Start 11/24/18 at 09:00 Hydralazine HCl (Apresoline) 50 mg BID PO Last administered on 11/26/18 09:02; Admin Dose 50 MG; Start 11/24/18 at 21:00 Potassium Chloride/Dextrose 1,000 ml @ 75 mls/hr [id number] IV Last administered on 11/26/18 06:49; Admin Dose 75 MLS/HR; Start 11/25/18 at 10:30 FREDI FLORES MD Nov 26, 2018 11:50
[2018-11-26] MEDS ORDERED: POTASSIUM CHLORIDE 20 MEQ POWDER FOR ORAL SOLN PO ONE (12:00)
--- NOTE | 2018-11-26 12:17 | PN ---
Date/Time of Note Date/Time of Note DATE: 11/26/18 TIME: 12:11 Assessment/Plan VTE Prophylaxis Risk score (from Nsg)>0 risk: 5 SCD applied (from Nsg): Yes Pharmacological prophylaxis: heparin Lines/Catheters IV Catheter Type (from Nrsg): Peripheral IV Urinary Cath still in place: Yes Reason Cath still needed: other (indicate) Assessment/Plan Assessment/Plan 1. Acute renal failure due to dehydration, likely CKD, improving on IVF, follow up with BMP 2. Dehydration due to poor intake, improving 3. Electrolyte imbalance due to dehydration, improved, KCl given today 4. Hyperuricemia, on allopurinol 5. CAD s/p stent placement, on plavix, lipitor 6. H/o Dementia 7. Hypertension, on hydralazine 8. H/o Hypothyroidism, 9. Discharge to SNF tomorrow 10. DVT prophylaxis: heparin Result Diagram: 11/26/18 0440 11/26/18 0440 Results 24hrs Laboratory Tests Test 11/25/18 12:19 11/25/18 17:37 11/25/18 20:55 11/26/18 04:40 Bedside Glucose 193 134 164 White Blood Count 5.6 Red Blood Count 3.49 L Hemoglobin 10.8 L Hematocrit 34.6 L Mean Corpuscular Volume 99.1 Mean Corpuscular 30.9 Hemoglobin Mean Corpuscular 31.2 L Hemoglobin Concent Red Cell Distribution 14.5 Width Platelet Count 104 L Mean Platelet Volume 13.6 H Immature Granulocytes % 0.400 Neutrophils % 70.9 Lymphocytes % 12.9 L Monocytes % 13.2 H Eosinophils % 2.1 Basophils % 0.5 Nucleated Red Blood 0.0 Cells % Immature Granulocytes # 0.020 Neutrophils # 4.0 Lymphocytes # 0.7 L Monocytes # 0.7 Eosinophils # 0.1 Basophils # 0.0 Nucleated Red Blood 0.0 Cells # Sodium Level 142 Potassium Level 3.4 L Chloride Level 110 Carbon Dioxide Level 26 Anion Gap 6 Blood Urea Nitrogen 38 #H Creatinine 1.33 H Glucose Level 103 Calcium Level 8.5 Phosphorus Level 2.8 Magnesium Level 1.5 L Albumin 2.8 L Test 11/26/18 07:50 11/26/18 11:52 Bedside Glucose 94 208 Exam/Review of Systems Exam Vitals Vital Signs Date Temp Pulse Resp B/P (MAP) Pulse Ox O2 O2 Flow FiO2 Time Delivery Rate 11/26/18 98.8 81 20 114/57 98 08:00 (76) 11/22/18 Room Air 14:39 Intake and Output 11/25/18 11/25/18 11/26/18 1515:00 23:00 07:00 IntakeIntake Total 919.0909 ml 622 ml 728 ml OutputOutput Total 450 ml 500 ml BalanceBalance 919.0909 ml 172 ml 228 ml Results Results 24hrs Laboratory Tests Test 11/25/18 12:19 11/25/18 17:37 11/25/18 20:55 11/26/18 04:40 Bedside Glucose 193 134 164 White Blood Count 5.6 Red Blood Count 3.49 L Hemoglobin 10.8 L Hematocrit 34.6 L Mean Corpuscular Volume 99.1 Mean Corpuscular 30.9 Hemoglobin Mean Corpuscular 31.2 L Hemoglobin Concent Red Cell Distribution 14.5 Width Platelet Count 104 L Mean Platelet Volume 13.6 H Immature Granulocytes % 0.400 Neutrophils % 70.9 Lymphocytes % 12.9 L Monocytes % 13.2 H Eosinophils % 2.1 Basophils % 0.5 Nucleated Red Blood 0.0 Cells % Immature Granulocytes # 0.020 Neutrophils # 4.0 Lymphocytes # 0.7 L Monocytes # 0.7 Eosinophils # 0.1 Basophils # 0.0 Nucleated Red Blood 0.0 Cells # Sodium Level 142 Potassium Level 3.4 L Chloride Level 110 Carbon Dioxide Level 26 Anion Gap 6 Blood Urea Nitrogen 38 #H Creatinine 1.33 H Glucose Level 103 Calcium Level 8.5 Phosphorus Level 2.8 Magnesium Level 1.5 L Albumin 2.8 L Test 11/26/18 07:50 11/26/18 11:52 Bedside Glucose 94 208 Medications Medication Current Medications IV Flush (NS 3 ml) 3 ml PER PROTOCOL IV ; Start 11/22/18 at 12:30 Ondansetron HCl (Zofran Inj) 4 mg Q6H PRN IV NAUSEA/VOMITING; Start 11/22/18 at 12:30 Acetaminophen (Tylenol Tab) 650 mg Q6H PRN PO .PAIN 1-3 OR TEMP; Start 11/22/18 at 12:30 Pantoprazole (Protonix Iv) 40 mg DAILY@06 IV Last administered on 11/26/18at 06:48; Admin Dose 40 MG; Start 11/23/18 at 06:00 Diagnostic Test (Pha) (Accu-Chek) 1 ea 02 XX ; Start 11/23/18 at 02:00 Miscellaneous Information 1 ea NOTE XX ; Start 11/22/18 at 13:00 Glucose (Glutose) 15 gm Q15M PRN PO DECREASED GLUCOSE; Start 11/22/18 at 13:00 Glucose (Glutose) 22.5 gm Q15M PRN PO DECREASED GLUCOSE; Start 11/22/18 at 13:00 Dextrose (D50w Syringe) 25 ml Q15M PRN IV DECREASED GLUCOSE; Start 11/22/18 at 13:00 Dextrose (D50w Syringe) 50 ml Q15M PRN IV DECREASED GLUCOSE; Start 11/22/18 at 13:00 Glucagon (Glucagen) 1 mg Q15M PRN IM DECREASED GLUCOSE; Start 11/22/18 at 13:00 Glucose (Glutose) 15 gm Q15M PRN BUCCAL DECREASED GLUCOSE; Start 11/22/18 at 13:00 Allopurinol (Zyloprim) 100 mg BID PO Last administered on 11/26/18 09:00; Admin Dose 100 MG; Start 11/23/18 at 21:00 Insulin Aspart (Novolog Insulin Pen) NOVOLOG *MILD* ALGORITHM AC MEALS AND BEDTIME SC Last administered on 11/26/18 11:53; Admin Dose 2 UNIT; Start 11/23/18 at 17:35 Atorvastatin Calcium (Lipitor) 40 mg DAILY PO Last administered on 11/26/18 09:00; Admin Dose 40 MG; Start 11/24/18 at 09:00 Cinacalcet (Sensipar) 60 mg BID PO Last administered on 11/26/18 09:00; Admin Dose 60 MG; Start 11/23/18 at 21:00 Clopidogrel Bisulfate (plaVIX) 75 mg DAILY PO Last administered on 11/26/18 09:01; Admin Dose 75 MG; Start 11/24/18 at 09:00 Hydralazine HCl (Apresoline) 50 mg BID PO Last administered on 11/26/18 09:02; Admin Dose 50 MG; Start 11/24/18 at 21:00 Potassium Chloride/Dextrose 1,000 ml @ 75 mls/hr [id number] IV Last administered on 11/26/18 06:49; Admin Dose 75 MLS/HR; Start 11/25/18 at 10:30 SARITA HERNANDEZ MD Nov 26, 2018 12:17
[2018-11-26] MEDS: HEPARIN 5,000 UNIT/1 ML VIAL SC SCH ×2 (13:13→21:04)
[2018-11-26 14:00] VITALS: BP 110/62; PULSE 64; RESP 18
[2018-11-26 20:22] VITALS: BP 136/64; PULSE 80; RESP 18
[2018-11-27] MEDS: ACCU-CHEK XX SCH (02:00)
[2018-11-27 02:30] VITALS: BP 118/57; PULSE 82; RESP 18
[2018-11-27] MEDS: PANTOPRAZOLE 40 MG INJ IV SCH (06:17)
--- NOTE | 2018-11-27 07:22 | CONS ---
Assessment/Plan Assessment/Plan Assessment/Plan (Daily) 1. acute kidney injury on possible CKD due to ATN from prerenal azotemia from dehydration 2. Severe dehydration due to Decreased PO , failure to thrive 3. Acute hypernatremia 4. Hyperkalemia 5. H/o Previosu CAD s/p stent placement 6. H/o Dementia 7. H/o Hypertension 8. H/o Hypothyroidism Plan: BUN/Cr improved to 26/1.07, Na 142, IVF D5W with KCl 20mEQ at 75 cc/hr uric acid 16.2- on allopurinol 100mg PO BID , BP stable Renal US c/w medical renal disease, left kidney not visualized will follow up Consultation Date/Type/Reason Admit Date/Time Nov 22, 2018 at 12:06 Initial Consult Date 11/22/18 Type of Consult NEPHROLOGY Requesting Provider: BRADLEY RINCON Date/Time of Note DATE: 11/27/18 TIME: 07:22 Exam/Review of Systems Exam Vitals Vital Signs Date Temp Pulse Resp B/P (MAP) Pulse Ox O2 O2 Flow FiO2 Time Delivery Rate 11/27/18 97.8 82 18 118/57 100 02:30 (77) Intake and Output 11/26/18 11/26/18 11/27/18 1515:00 23:00 07:00 IntakeIntake Total 625 ml 775 ml 1020 ml OutputOutput Total 300 ml BalanceBalance 325 ml 775 ml 1020 ml Exam Constitutional: distress, frail, Respiratory: clear to auscultation, normal air movement, diminished breath sounds Cardiovascular: regular rate and rhythm, nl pulses Gastrointestinal: soft, non-tender Musculoskeletal: joint tenderness, muscle weakness, swelling Extremities: normal pulses Neurological: non focal, weak Results Result Diagram: 11/26/18 0440 11/27/18 0512 Results 24hrs Laboratory Tests Test 11/26/18 07:50 11/26/18 11:52 11/26/18 17:48 11/26/18 21:03 Bedside Glucose 94 208 159 142 Test 11/27/18 05:12 Sodium Level 140 Potassium Level 4.2 Chloride Level 107 Carbon Dioxide Level 24 Anion Gap 9 Blood Urea Nitrogen 26 #H Creatinine 1.07 Est Glomerular Filtrat Rate mL/min Glucose Level 113 Calcium Level 8.4 Medications Medication Current Medications IV Flush (NS 3 ml) 3 ml PER PROTOCOL IV ; Start 11/22/18 at 12:30 Ondansetron HCl (Zofran Inj) 4 mg Q6H PRN IV NAUSEA/VOMITING; Start 11/22/18 at 12:30 Acetaminophen (Tylenol Tab) 650 mg Q6H PRN PO .PAIN 1-3 OR TEMP; Start 11/22/18 at 12:30 Pantoprazole (Protonix Iv) 40 mg DAILY@06 IV Last administered on 11/27/18at 06:17; Admin Dose 40 MG; Start 11/23/18 at 06:00 Diagnostic Test (Pha) (Accu-Chek) 1 ea 02 XX ; Start 11/23/18 at 02:00 Miscellaneous Information 1 ea NOTE XX ; Start 11/22/18 at 13:00 Glucose (Glutose) 15 gm Q15M PRN PO DECREASED GLUCOSE; Start 11/22/18 at 13:00 Glucose (Glutose) 22.5 gm Q15M PRN PO DECREASED GLUCOSE; Start 11/22/18 at 13:00 Dextrose (D50w Syringe) 25 ml Q15M PRN IV DECREASED GLUCOSE; Start 11/22/18 at 13:00 Dextrose (D50w Syringe) 50 ml Q15M PRN IV DECREASED GLUCOSE; Start 11/22/18 at 13:00 Glucagon (Glucagen) 1 mg Q15M PRN IM DECREASED GLUCOSE; Start 11/22/18 at 13:00 Glucose (Glutose) 15 gm Q15M PRN BUCCAL DECREASED GLUCOSE; Start 11/22/18 at 13:00 Allopurinol (Zyloprim) 100 mg BID PO Last administered on 11/26/18at 21:00; Admin Dose 100 MG; Start 11/23/18 at 21:00 Insulin Aspart (Novolog Insulin Pen) NOVOLOG *MILD* ALGORITHM AC MEALS AND BEDTIME SC Last administered on 11/26/18at 17:49; Admin Dose 1 UNIT; Start 11/23/18 at 17:35 Atorvastatin Calcium (Lipitor) 40 mg DAILY PO Last administered on 11/26/18at 09:00; Admin Dose 40 MG; Start 11/24/18 at 09:00 Cinacalcet (Sensipar) 60 mg BID PO Last administered on 11/26/18at 21:00; Admin Dose 60 MG; Start 11/23/18 at 21:00 Clopidogrel Bisulfate (plaVIX) 75 mg DAILY PO Last administered on 11/26/18 09:01; Admin Dose 75 MG; Start 11/24/18 at 09:00 Hydralazine HCl (Apresoline) 50 mg BID PO Last administered on 11/26/18at 21:00; Admin Dose 50 MG; Start 11/24/18 at 21:00 Potassium Chloride/Dextrose 1,000 ml @ 100 mls/hr Q10H IV Last administered on 11/26/18at 21:08; Admin Dose 100 MLS/HR; Start 11/25/18 at 10:30 Heparin Sodium (Porcine) (Heparin (5000 Units/1ml)) 5,000 unit BID SC Last administered on 11/26/18 21:04; Admin Dose 5,000 UNIT; Start 11/26/18 at 12:30 FREDI FLORES MD Nov 27, 2018 07:22
[2018-11-27] MEDS: D5W + KCL 20 MEQ 1,000 ML IV SCH ×4 (07:27→20:34)
[2018-11-27] MEDS: INSULIN ASPART [NOVOLOG] 3 ML PEN SC SCH ×4 (07:30→20:24)
[2018-11-27] MEDS: CINACALCET 30 MG TAB PO SCH ×2 (08:07→20:26)
[2018-11-27] MEDS: ALLOPURINOL 100 MG TAB PO SCH ×2 (08:08→20:26)
[2018-11-27] MEDS: CLOPIDOGREL 75 MG TAB PO SCH (08:08)
[2018-11-27] MEDS: ATORVASTATIN 40 MG TAB PO SCH (08:09)
[2018-11-27 08:10] VITALS: BP 127/60; PULSE 74; RESP 18
[2018-11-27] MEDS: HEPARIN 5,000 UNIT/1 ML VIAL SC SCH ×2 (08:11→20:25)
[2018-11-27] MEDS: BALSAM PERU/CASTOR OIL 60 GM TUBE TOP SCH ×2 (08:11→20:32)
[2018-11-27] MEDS ORDERED: ALLO100T PO (12:22)
[2018-11-27] MEDS ORDERED: HEPA50002 SC (12:22)
--- NOTE | 2018-11-27 12:30 | DS ---
Date/Time of Note Date/Time of Note DATE: 11/27/18 TIME: 12:23 Discharge Summary Admission/Discharge Info Admit Date/Time Nov 22, 2018 at 12:06 Discharge Date/Time Discharge Diagnosis 1. Acute renal failure due to dehydration, resolved 2. Dehydration due to poor intake, improved 3. Electrolyte imbalance due to dehydration, improved 4. Hyperuricemia, on allopurinol 5. CAD s/p stent placement, on plavix, lipitor 6. H/o Dementia 7. Hypertension, on hydralazine 8. Thrombocytopenia, mild, follow up with PLT 9. DM, on metformin 10. DVT prophylaxis: heparin Patient Condition: Stable Hospital Course Patient is a -[place] male with past medical history significant for dementia, history of CVA, history of NH, dyslipidemia, hypertension, diabetes mellitus, hyperparathyroidism who presents to [facility] by his family for failure to thrive. According to daughter at bedside, patient is at baseline dementia cognition however in the past week or so patient has be coming worse and worse as far as his appetite. Patient's appetite was already terrible to begin with with barely any oral intake, however recently patient has not wanted any food at all. Patient currently has no acute complaints other than not feeling hungry. On admission, sodium 157, K 5.2, BUN/Cr 121/3.05 indicating severe dehydration with acute renal failure. Patient got IVF rehydration, electrolyte imbalance resolved and acute renal failure resolved with BUN/Cr 26/1.07 on 11/27/2018. Patient still feel weak that I will send him to SNF for physical therapy. Uric acid is 16.2, he is on allopurinol for this. Home Meds Reported Medications Hydralazine Hcl* (Hydralazine Hcl*) 50 Mg Tab, 50 MG PO BID, #90 TAB 11/22/18 Clopidogrel Bisulfate (Clopidogrel) 75 Mg Tablet, 75 MG PO DAILY, #30 TAB 11/22/18 Metformin* (Glucophage*) 1,000 Mg Tablet, 1000 MG PO WITH BREAKFAST DINNE, #30 TAB 11/22/18 Atorvastatin* (Atorvastatin*) 40 Mg Tablet, 40 MG PO DAILY, #30 TAB 11/22/18 Cinacalcet* (Sensipar*) 60 Mg Tablet, 60 MG PO BID, TAB 11/22/18 Primary Care Provider Not On Staff Doctor Pending Labs Laboratory Tests Test 11/26/18 17:48 11/26/18 21:03 11/27/18 05:12 11/27/18 07:56 Bedside 159 142 102 Glucose mg/dL (70-220) mg/dL (70-220) mg/dL (70-220) Sodium Level 140 mmol/L (135-14 4) Potassium 4.2 Level mmol/L (3.5-5. 1) Chloride Level 107 mmol/L (97-110 ) Carbon Dioxide 24 Level mmol/L (21-31) Anion Gap 9 (5-13) Blood Urea 26 Nitrogen mg/dl (7-20) Creatinine 1.07 mg/dl (0.61-1. 24) Est Glomerular mL/min (>60) Filtrat Rate mL/min Glucose Level 113 mg/dl (70-220) Calcium Level 8.4 mg/dl (8.4-10. 2) SARITA HERNANDEZ MD Nov 27, 2018 12:30
[2018-11-27 14:00] VITALS: BP 121/59; PULSE 83; RESP 18
[2018-11-27 20:25] VITALS: BP 133/60; PULSE 85; RESP 18
[2018-11-28] MEDS: ACCU-CHEK XX SCH (02:00)
[2018-11-28 02:29] VITALS: BP 134/62; PULSE 82; RESP 18
--- NOTE | 2018-11-28 06:34 | CONS ---
Assessment/Plan Assessment/Plan Assessment/Plan (Daily) Assessment/Plan Assessment/Plan (Daily) Failure to thrive Profound dehydration Prerenal azotemia Cachexia Loss of appetite History of hypertension History of hyperlipidemia Mild to moderate dementia Patient underlying medical condition primarily dehydration with fluid and e lectrolyte abnormalities have been corrected and patient is eating. He is back to his baseline mental status I will try and get in touch with family members to address his CODE STATUS and follow-up note will be done if patient is not discharged from acute facility today. Consultation Date/Type/Reason Admit Date/Time Nov 22, 2018 at 12:06 Initial Consult Date 11/22/18 Requesting Provider: BRADLEY RINCON Date/Time of Note DATE: 11/28/18 TIME: 06:33 Exam/Review of Systems Exam Vitals Vital Signs Date Temp Pulse Resp B/P (MAP) Pulse Ox O2 O2 Flow FiO2 Time Delivery Rate 11/28/18 98.2 82 18 134/62 100 02:29 (86) Intake and Output 11/27/18 11/27/18 11/28/18 1515:00 23:00 07:00 IntakeIntake Total 980 ml 120 ml 500 ml BalanceBalance 980 ml 120 ml 500 ml Results Result Diagram: 11/26/18 0440 11/27/18 0512 Results 24hrs Laboratory Tests Test 11/27/18 07:56 11/27/18 12:10 11/27/18 17:15 11/27/18 20:23 Bedside Glucose 102 154 93 174 Medications Medication Current Medications IV Flush (NS 3 ml) 3 ml PER PROTOCOL IV ; Start 11/22/18 at 12:30 Ondansetron HCl (Zofran Inj) 4 mg Q6H PRN IV NAUSEA/VOMITING; Start 11/22/18 at 12:30 Acetaminophen (Tylenol Tab) 650 mg Q6H PRN PO .PAIN 1-3 OR TEMP; Start 11/22/18 at 12:30 Pantoprazole (Protonix Iv) 40 mg DAILY@06 IV Last administered on 11/27/18at 06:17; Admin Dose 40 MG; Start 11/23/18 at 06:00 Diagnostic Test (Pha) (Accu-Chek) 1 ea 02 XX ; Start 11/23/18 at 02:00 Miscellaneous Information 1 ea NOTE XX ; Start 11/22/18 at 13:00 Glucose (Glutose) 15 gm Q15M PRN PO DECREASED GLUCOSE; Start 11/22/18 at 13:00 Glucose (Glutose) 22.5 gm Q15M PRN PO DECREASED GLUCOSE; Start 11/22/18 at 13:00 Dextrose (D50w Syringe) 25 ml Q15M PRN IV DECREASED GLUCOSE; Start 11/22/18 at 13:00 Dextrose (D50w Syringe) 50 ml Q15M PRN IV DECREASED GLUCOSE; Start 11/22/18 at 13:00 Glucagon (Glucagen) 1 mg Q15M PRN IM DECREASED GLUCOSE; Start 11/22/18 at 13:00 Glucose (Glutose) 15 gm Q15M PRN BUCCAL DECREASED GLUCOSE; Start 11/22/18 at 13:00 Allopurinol (Zyloprim) 100 mg BID PO Last administered on 11/27/18 20:26; Admin Dose 100 MG; Start 11/23/18 at 21:00 Insulin Aspart (Novolog Insulin Pen) NOVOLOG *MILD* ALGORITHM AC MEALS AND BEDTIME SC Last administered on 11/27/18 12:12; Admin Dose 1 UNIT; Start 11/23/18 at 17:35 Atorvastatin Calcium (Lipitor) 40 mg DAILY PO Last administered on 11/27/18 08:09; Admin Dose 40 MG; Start 11/24/18 at 09:00 Cinacalcet (Sensipar) 60 mg BID PO Last administered on 11/27/18 20:26; Admin Dose 60 MG; Start 11/23/18 at 21:00 Clopidogrel Bisulfate (plaVIX) 75 mg DAILY PO Last administered on 11/27/18 08:08; Admin Dose 75 MG; Start 11/24/18 at 09:00 Hydralazine HCl (Apresoline) 50 mg BID PO Last administered on 11/27/18 20:28; Admin Dose 50 MG; Start 11/24/18 at 21:00 Potassium Chloride/Dextrose 1,000 ml @ 70 mls/hr [id number] IV Last administered on 11/27/18 20:34; Admin Dose 100 MLS/HR; Start 11/25/18 at 10:30 Heparin Sodium (Porcine) (Heparin (5000 Units/1ml)) 5,000 unit BID SC Last administered on 11/27/18 20:25; Admin Dose 5,000 UNIT; Start 11/26/18 at 12:30 YUMIKO KAUR Nov 28, 2018 06:34
[2018-11-28] MEDS: PANTOPRAZOLE 40 MG INJ IV SCH (06:49)
[2018-11-28] MEDS: D5W + KCL 20 MEQ 1,000 ML IV SCH ×2 (07:07→09:22)
[2018-11-28] MEDS: INSULIN ASPART [NOVOLOG] 3 ML PEN SC SCH ×3 (07:30→17:16)
[2018-11-28 08:31] VITALS: BP 137/65; PULSE 84; RESP 18
[2018-11-28] MEDS: ATORVASTATIN 40 MG TAB PO SCH (09:25)
[2018-11-28] MEDS: ALLOPURINOL 100 MG TAB PO SCH (09:25)
[2018-11-28] MEDS: CLOPIDOGREL 75 MG TAB PO SCH (09:26)
[2018-11-28] MEDS: CINACALCET 30 MG TAB PO SCH (09:26)
[2018-11-28] MEDS: HEPARIN 5,000 UNIT/1 ML VIAL SC SCH (09:27)
[2018-11-28] MEDS: BALSAM PERU/CASTOR OIL 60 GM TUBE TOP SCH (09:28)
--- NOTE | 2018-11-28 14:18 | PN ---
Date/Time of Note Date/Time of Note DATE: 11/28/18 TIME: 14:17 Assessment/Plan VTE Prophylaxis Risk score (from Ns)>0 risk: 3 SCD applied (from Nsg): Yes Pharmacological prophylaxis: heparin Lines/Catheters IV Catheter Type (from Nrsg): Peripheral IV Urinary Cath still in place: No Assessment/Plan Hospital Course 83 yo male with vascular dementia with hypernatremia, lethargy, CAREY now resolved - Symptoms resolved with IV fluids - Patient ready for discharge to senior living Result Diagram: 11/26/18 0440 11/27/18 0512 Results 24hrs Laboratory Tests Test 11/27/18 17:15 11/27/18 20:23 11/28/18 08:07 11/28/18 11:51 Bedside Glucose 93 174 103 122 Subjective 24 Hr Interval Summary Free Text/Dictation Patient alert, back to mental baseline Aware of hosptial, name, daughters name Denies complaints Exam/Review of Systems Exam Vitals Vital Signs Date Temp Pulse Resp B/P (MAP) Pulse Ox O2 O2 Flow FiO2 Time Delivery Rate 11/28/18 98.2 84 18 137/65 96 Room Air 08:31 (89) Intake and Output 11/27/18 11/27/18 11/28/18 1515:00 23:00 07:00 IntakeIntake Total 980 ml 120 ml 500 ml BalanceBalance 980 ml 120 ml 500 ml Constitutional: alert, oriented, well developed Psych: no complaints, nl mood/affect Head: normocephalic, atraumatic Eyes: nl conjunctiva, EOMI, nl lids, nl sclera, PERRL ENMT: nl external ears & nose, nl lips & teeth, nl nasal mucosa & septum Neck: supple, non-tender Respiratory: clear to auscultation, normal air movement Cardiovascular: regular rate and rhythm, nl pulses Gastrointestinal: soft, nl liver, spleen, non-tender Musculoskeletal: nl extremities to inspection, nl gait and stance Extremities: normal pulses Neurological: [employer]OR [employer]UG SAFETY II-XII intact, nl mental status, nl speech, nl strength Skin: nl turgor; No rash or lesions Lymph: nl lymph nodes Results Results 24hrs Laboratory Tests Test 11/27/18 17:15 11/27/18 20:23 11/28/18 08:07 11/28/18 11:51 Bedside Glucose 93 174 103 122 Medications Medication Current Medications IV Flush (NS 3 ml) 3 ml PER PROTOCOL IV ; Start 11/22/18 at 12:30 Ondansetron HCl (Zofran Inj) 4 mg Q6H PRN IV NAUSEA/VOMITING; Start 11/22/18 at 12:30 Acetaminophen (Tylenol Tab) 650 mg Q6H PRN PO .PAIN 1-3 OR TEMP; Start 11/22/18 at 12:30 Pantoprazole (Protonix Iv) 40 mg DAILY@06 IV Last administered on 11/28/18at 06:49; Admin Dose 40 MG; Start 11/23/18 at 06:00 Diagnostic Test (Pha) (Accu-Chek) 1 ea 02 XX ; Start 11/23/18 at 02:00 Miscellaneous Information 1 ea NOTE XX ; Start 11/22/18 at 13:00 Glucose (Glutose) 15 gm Q15M PRN PO DECREASED GLUCOSE; Start 11/22/18 at 13:00 Glucose (Glutose) 22.5 gm Q15M PRN PO DECREASED GLUCOSE; Start 11/22/18 at 13:00 Dextrose (D50w Syringe) 25 ml Q15M PRN IV DECREASED GLUCOSE; Start 11/22/18 at 13:00 Dextrose (D50w Syringe) 50 ml Q15M PRN IV DECREASED GLUCOSE; Start 11/22/18 at 13:00 Glucagon (Glucagen) 1 mg Q15M PRN IM DECREASED GLUCOSE; Start 11/22/18 at 13:00 Glucose (Glutose) 15 gm Q15M PRN BUCCAL DECREASED GLUCOSE; Start 11/22/18 at 13:00 Allopurinol (Zyloprim) 100 mg BID PO Last administered on 11/28/18at 09:25; Admin Dose 100 MG; Start 11/23/18 at 21:00 Insulin Aspart (Novolog Insulin Pen) NOVOLOG *MILD* ALGORITHM AC MEALS AND BEDTIME SC Last administered on 11/27/18at 12:12; Admin Dose 1 UNIT; Start 11/23/18 at 17:35 Atorvastatin Calcium (Lipitor) 40 mg DAILY PO Last administered on 11/28/18at 09:25; Admin Dose 40 MG; Start 11/24/18 at 09:00 Cinacalcet (Sensipar) 60 mg BID PO Last administered on 11/28/18at 09:26; Admin Dose 60 MG; Start 11/23/18 at 21:00 Clopidogrel Bisulfate (plaVIX) 75 mg DAILY PO Last administered on 11/28/18 09:26; Admin Dose 75 MG; Start 11/24/18 at 09:00 Hydralazine HCl (Apresoline) 50 mg BID PO Last administered on 11/28/18 09:26; Admin Dose 50 MG; Start 11/24/18 at 21:00 Potassium Chloride/Dextrose 1,000 ml @ 70 mls/hr [id number] IV Last administered on 11/28/18 09:22; Admin Dose 70 MLS/HR; Start 11/25/18 at 10:30 Heparin Sodium (Porcine) (Heparin (5000 Units/1ml)) 5,000 unit BID SC Last administered on 11/28/18 09:27; Admin Dose 5,000 UNIT; Start 11/26/18 at 12:30 MERCEDES GONZALEZ MD Nov 28, 2018 14:18
[2018-11-28 14:54] VITALS: BP 116/58; PULSE 90; RESP 18
--- NOTE | 2018-11-28 15:34 | CONS ---
Assessment/Plan Assessment/Plan Assessment/Plan (Daily) 1. acute kidney injury on possible CKD due to ATN from prerenal azotemia from dehydration 2. Severe dehydration due to Decreased PO , failure to thrive 3. Acute hypernatremia 4. Hyperkalemia 5. H/o Previosu CAD s/p stent placement 6. H/o Dementia 7. H/o Hypertension 8. H/o Hypothyroidism Plan: BUN/Cr improved to 26/1.07, Na 142, IVF D5W with KCl 20mEQ at 75 cc/hr uric acid 16.2- on allopurinol 100mg PO BID , BP stable Renal US c/w medical renal disease, left kidney not visualized will follow up Patient is seen in collaboration with Dr Tara Woods. Dw staff Consultation Date/Type/Reason Admit Date/Time Nov 22, 2018 at 12:06 Initial Consult Date 11/22/18 Type of Consult NEPHROLOGY Requesting Provider: BRADLEY RINCON Date/Time of Note DATE: 11/28/18 TIME: 15:32 24 HR Interval Summary Free Text/Dictation NAD Feels better no new issues reported last night per staff Detailed Summary Eyes: no complaints ENT: no complaints Respiratory: no complaints Cardiovascular: no complaints Gastrointestinal: no complaints Genitourinary: no complaints Musculoskeletal: other (general weakness) Exam/Review of Systems Exam Vitals Vital Signs Date Temp Pulse Resp B/P (MAP) Pulse Ox O2 O2 Flow FiO2 Time Delivery Rate 11/28/18 98.0 90 18 116/58 97 Room Air 14:54 (77) Intake and Output 11/27/18 11/27/18 11/28/18 1515:00 23:00 07:00 IntakeIntake Total 980 ml 120 ml 500 ml BalanceBalance 980 ml 120 ml 500 ml Constitutional: alert, well developed Psych: nl mood/affect Head: atraumatic Eyes: EOMI, nl lids, nl sclera ENMT: nl external ears & nose Respiratory: normal air movement Cardiovascular: nl pulses Gastrointestinal: soft, non-tender Musculoskeletal: nl extremities to inspection Extremities: normal pulses Neurological: nl speech, other (alert/repsonsive) Lymph: nontender Results Result Diagram: 11/26/18 0440 11/27/18 0512 Results 24hrs Laboratory Tests Test 11/27/18 17:15 11/27/18 20:23 11/28/18 08:07 11/28/18 11:51 Bedside Glucose 93 174 103 122 Medications Medication Current Medications IV Flush (NS 3 ml) 3 ml PER PROTOCOL IV ; Start 11/22/18 at 12:30 Ondansetron HCl (Zofran Inj) 4 mg Q6H PRN IV NAUSEA/VOMITING; Start 11/22/18 at 12:30 Acetaminophen (Tylenol Tab) 650 mg Q6H PRN PO .PAIN 1-3 OR TEMP; Start 11/22/18 at 12:30 Pantoprazole (Protonix Iv) 40 mg DAILY@06 IV Last administered on 11/28/18at 06:49; Admin Dose 40 MG; Start 11/23/18 at 06:00 Diagnostic Test (Pha) (Accu-Chek) 1 ea 02 XX ; Start 11/23/18 at 02:00 Miscellaneous Information 1 ea NOTE XX ; Start 11/22/18 at 13:00 Glucose (Glutose) 15 gm Q15M PRN PO DECREASED GLUCOSE; Start 11/22/18 at 13:00 Glucose (Glutose) 22.5 gm Q15M PRN PO DECREASED GLUCOSE; Start 11/22/18 at 13:00 Dextrose (D50w Syringe) 25 ml Q15M PRN IV DECREASED GLUCOSE; Start 11/22/18 at 13:00 Dextrose (D50w Syringe) 50 ml Q15M PRN IV DECREASED GLUCOSE; Start 11/22/18 at 13:00 Glucagon (Glucagen) 1 mg Q15M PRN IM DECREASED GLUCOSE; Start 11/22/18 at 13:00 Glucose (Glutose) 15 gm Q15M PRN BUCCAL DECREASED GLUCOSE; Start 11/22/18 at 13:00 Allopurinol (Zyloprim) 100 mg BID PO Last administered on 11/28/18at 09:25; Admin Dose 100 MG; Start 11/23/18 at 21:00 Insulin Aspart (Novolog Insulin Pen) NOVOLOG *MILD* ALGORITHM AC MEALS AND BEDTIME SC Last administered on 11/27/18at 12:12; Admin Dose 1 UNIT; Start 11/23 at 17:35 Atorvastatin Calcium (Lipitor) 40 mg DAILY PO Last administered on 11/28/18at 09:25; Admin Dose 40 MG; Start 11/24/18 at 09:00 Cinacalcet (Sensipar) 60 mg BID PO Last administered on 11/28/18 09:26; Admin Dose 60 MG; Start 11/23/18 at 21:00 Clopidogrel Bisulfate (plaVIX) 75 mg DAILY PO Last administered on 11/28/18 09:26; Admin Dose 75 MG; Start 11/24/18 at 09:00 Hydralazine HCl (Apresoline) 50 mg BID PO Last administered on 11/28/18 09:26; Admin Dose 50 MG; Start 11/24/18 at 21:00 Potassium Chloride/Dextrose 1,000 ml @ 70 mls/hr [id number] IV Last administered on 11/28/18 09:22; Admin Dose 70 MLS/HR; Start 11/25/18 at 10:30 Heparin Sodium (Porcine) (Heparin (5000 Units/1ml)) 5,000 unit BID SC Last administered on 11/28/18 09:27; Admin Dose 5,000 UNIT; Start 11/26/18 at 12:30 PARKER WOOD Nov 28, 2018 15:34
[2018-11-29 20:25] VITALS: BP 139/60; PULSE 57; RESP 18
== END 2018-11-28 17:35 | DRG 682 ==
LOC: E/R 10:22 → PP2 12:06
PROVIDERS: ADMIT Internal Medicine; ATTEND Internal Medicine
DX: N17.0 Acute kidney failure with tubular necrosis (principal); E43 Unspecified severe protein-calorie malnutrition; R64 Cachexia; Z68.1 Body mass index [BMI] 19.9 or less, adult; E87.0 Hyperosmolality and hypernatremia; R62.7 Adult failure to thrive; E86.0 Dehydration; I12.9 Hypertensive chronic kidney disease with stage 1 through stage 4 chronic kidney disease, or unspecified chronic kidney disease; E11.22 Type 2 diabetes mellitus with diabetic chronic kidney disease; N18.9 Chronic kidney disease, unspecified; F03.90 Unspecified dementia, unspecified severity, without behavioral disturbance, psychotic disturbance, mood disturbance, and anxiety; E78.5 Hyperlipidemia, unspecified; E87.5 Hyperkalemia; E21.3 Hyperparathyroidism, unspecified; I25.10 Atherosclerotic heart disease of native coronary artery without angina pectoris; E03.9 Hypothyroidism, unspecified; I25.2 Old myocardial infarction; Z95.5 Presence of coronary angioplasty implant and graft; Z86.73 Personal history of transient ischemic attack (TIA), and cerebral infarction without residual deficits
CPT/HCPCS: 70450; 71045; 76775; 80048; 80053; 80069; 81001; 81003; 82550; 82570; 82962; 83036; 83735; 84300; 84436; 84479; 84484; 84560; 85025; 89190; 92610; 93005; 96360; 97110; 97116; 97162; 97167; 97530; 97535; C9113; J1644; J1815; J3475; J3480; J7030; J7050

== ENCOUNTER 2018-12-07 19:11 | Inpatient (IN) | payer MEDICARE, OTHER ==
[~2018-12-07] VITALS: Ht 182.9 cm; Wt 47.7 kg
[~2018-12-07 19:11] MED LIST: ALLO100T PO; ATOR40TA68 PO; CINA60TA PO; CLOP75TA27 PO; HEPA50002 SC; HYDR-3672 PO; MTF1000T PO
[2018-12-07] MEDS ORDERED: CEFTRIAXONE 1 GM/50 ML (PMX) 50 ML IVPB STA (19:17)
[2018-12-07] MEDS ORDERED: SODIUM CHLORIDE 0.9% 1L BAG IV* STA (19:55)
[2018-12-07] MEDS ORDERED: ACETAMINOPHEN 325 MG TAB PO PRN (20:30)
[2018-12-07] MEDS ORDERED: ONDANSETRON 4 MG INJ IV PRN (20:30)
[2018-12-07] MEDS ORDERED: ACET325T45 PO (20:44)
[2018-12-07] MEDS ORDERED: MULT-105 PO (20:47)
[2018-12-07] MEDS ORDERED: ASC500 PO (20:48)
[2018-12-07] MEDS ORDERED: ZINC220T PO (20:49)
--- NOTE | 2018-12-07 21:49 | ERD ---
ER Documentation Chief Complaint Chief Complaint BIB from [facility],FTT,GT placement recommendation,c/o R shoulder pain HPI Patient is an 83-year-old male with dementia, diabetes, hypertension, and coronary disease who presents for dehydration. Please note the history and physical exam is limited secondary to the patient's dementia baseline. The patient was brought in by ambulance. He was not eating or drinking well. He [place] had no fevers. Dr. Garcia wanted to do a direct admission but there were no beds available so the patient was brought in by ambulance to the emergency department. The patient was recently admitted on November 22 for dehydration and discharged on November 28. His primary doctor is Dr. Garcia. ROS All systems reviewed and are negative except as per history of present illness. Medications Home Meds Active Scripts Allopurinol* (Allopurinol*) 100 Mg Tablet, 100 MG PO BID for 30 Days, TAB Prov:SARITA HERNANDEZ MD 11/27/18 Reported Medications Zinc Sulfate* (Zinc Sulfate*) 220 Mg Tablet, 220 MG PO DAILY, TAB FOR 14 DAYS,START DATE 12/06/18 AND END DATE 12/20/18 12/07/18 Ascorbic Acid (Vitamin C) 500 Mg Tab, 500 MG PO DAILY, TAB 12/07/18 Multivitamin with Minerals (Multivitamins with Minerals) 1 Each Tablet, 1 EACH PO DAILY, TAB 12/07/18 Acetaminophen* (Acetaminophen*) 325 Mg Tablet, 650 MG PO Q4H PRN for PAIN 1- 07/01, #30 TAB 12/07/18 Hydralazine Hcl* (Hydralazine Hcl*) 50 Mg Tab, 50 MG PO BID, #90 TAB HOLD FOR SBP<110 OR WV<60 11/22/18 Clopidogrel Bisulfate (Clopidogrel) 75 Mg Tablet, 75 MG PO DAILY, #30 TAB 11/22/18 Metformin* (Glucophage*) 1,000 Mg Tablet, 1000 MG PO WITH BREAKFAST DINNE, #30 TAB 11/22/18 Atorvastatin* (Atorvastatin*) 40 Mg Tablet, 40 MG PO QHS, #30 TAB 11/22/18 Cinacalcet* (Sensipar*) 60 Mg Tablet, 60 MG PO BID, TAB 11/22/18 Discontinued Scripts Heparin Sodium,Porcine (Heparin Sodium) 5,000 Unit/1 Ml Vial, 5000 UNIT SC BID for 7 Days, VIAL Prov:SARITA HERNANDEZ MD 11/27/18 Allergies Allergies: Coded Allergies: No Known Allergy (Unverified , 12/07/18) PMhx/Soc History of Surgery: Yes (Heart Stent to 2005) Anesthesia Reaction: No Hx Neurological Disorder: No Hx Respiratory Disorders: No Hx Cardiac Disorders: Yes (Heart stent placement, Heart attck 1994.) Hx Psychiatric Problems: No Hx Miscellaneous Medical Probl: No Hx Alcohol Use: No Hx Substance Use: No Hx Tobacco Use: No Smoking Status: Former smoker FmHx Unable to obtain Physical Exam Vitals Vital Signs Date Temp Pulse Resp B/P (MAP) Pulse Ox O2 O2 Flow FiO2 Time Delivery Rate 12/07/18 98.5 76 14 158/51 99 Room Air 21:22 (86) 12/07/18 98.5 81 23 148/60 100 Room Air 20:23 (89) 12/07/18 98.5 84 12 144/76 100 Room Air 19:31 (98) 12/07/18 98.5 81 19 144/76 100 19:20 (98) Physical Exam Const: Cachexia Head: Atraumatic Eyes: Normal Conjunctiva ENT: Mucous membranes Neck: Full range of motion. No meningismus. Resp: Clear to auscultation bilaterally Cardio: Regular rate and rhythm, no murmurs Abd: Soft, non tender, non distended. Normal bowel sounds Skin: No petechiae or rashes Back: No midline or flank tenderness Ext: No cyanosis, or edema Neur: Awake but dementia at baseline Result Diagram: 12/07/18195312/07/181953 Results 24 hrs Laboratory Tests Test 12/07/18 19:54 12/07/18 21:20 White Blood Count 7.6 10^3/ul Red Blood Count 3.77 10^6/ul Hemoglobin 11.6 g/dl Hematocrit 37.0 % Mean Corpuscular Volume 98.1 fl Mean Corpuscular Hemoglobin 30.8 pg Mean Corpuscular Hemoglobin Concent 31.4 g/dl Red Cell Distribution Width 14.5 % Platelet Count 207 10^3/UL Mean Platelet Volume 11.5 fl Immature Granulocytes % 0.300 % Neutrophils % 71.1 % Lymphocytes % 16.4 % Monocytes % 6.8 % Eosinophils % 4.6 % Basophils % 0.8 % Nucleated Red Blood Cells % 0.0 /100WBC Immature Granulocytes # 0.020 10^3/ul Neutrophils # 5.4 10^3/ul Lymphocytes # 1.3 10^3/ul Monocytes # 0.5 10^3/ul Eosinophils # 0.4 10^3/ul Basophils # 0.1 10^3/ul Nucleated Red Blood Cells # 0.0 10^3/ul Prothrombin Time 11.8 Sec Prothrombin Time Ratio 0.9 INR International Normalized Ratio 0.86 Activated Partial Thromboplast Time 25.8 Sec Sodium Level 145 mmol/L Potassium Level 4.9 mmol/L Chloride Level 105 mmol/L Carbon Dioxide Level 30 mmol/L Anion Gap 10 Blood Urea Nitrogen 42 mg/dl Creatinine 1.65 mg/dl Est Glomerular Filtrat Rate mL/min mL/min Glucose Level 119 mg/dl Calcium Level 10.2 mg/dl Total Bilirubin 0.1 mg/dl Direct Bilirubin 0.00 mg/dl Indirect Bilirubin 0.1 mg/dl Aspartate Amino Transf (AST/SGOT) 24 IU/L Alanine Aminotransferase (ALT/SGPT) 15 IU/L Alkaline Phosphatase 87 IU/L Troponin I 0.028 ng/ml Total Protein 6.5 g/dl Albumin 3.5 g/dl Globulin 3.00 g/dl Albumin/Globulin Ratio 1.16 Urine Color YELLOW Urine Clarity CLEAR Urine pH 5.0 Urine Specific [place] 1.018 Urine Ketones TRACE mg/dL Urine Nitrite NEGATIVE mg/dL Urine Bilirubin NEGATIVE mg/dL Urine Urobilinogen NEGATIVE mg/dL Urine Leukocyte Esterase NEGATIVE José/ul Urine Microscopic RBC 58 /HPF Urine Microscopic WBC 8 /HPF Urine Bacteria FEW /HPF Urine Hemoglobin 2+ mg/dL Urine Glucose NEGATIVE mg/dL Urine Total Protein NEGATIVE mg/dl Current Medications Medications Dose Sig/Celina Start Time Status Last (Trade) Ordered Route PRN Stop Time Admin Dose Reason Admin Ceftriaxone 50 ml @ ONCE STAT 12/07/18 DC 12/07/18 Sodium 100 mls/hr IVPB 19:17 20:11 12/07/18 19:46 Sodium 1,210 ml BOLUS OVER 2 12/07/18 DC 12/07/18 Chloride HOURS STAT 19:55 20:11 (NS) IV* 12/07/18 19:56 Ondansetron 4 mg BRIDGE ORDER 12/07/18 HCl (Zofran PRN IV 20:30 Inj) NAUSEA/VOMITI 12/08/18 20:29 NG 650 mg ER BRIDGE 12/07/18 Acetaminophen PRN PO 20:30 (Tylenol .MILD PAIN 12/08/18 20:29 Tab) 1-3 OR TEMP Procedures/MDM Chest x-ray read by radiology. EKG read by me: Rate/Rhythm: Regular rate and rhythm at a normal rate Intervals: Normal Impression: No evidence of ischemia or arrhythmia Patient is an 83-year-old male presents with acute dehydration. He was given normal saline 30 mm/kg bolus. There was a mild cystitis and ceftriaxone was given IV. I doubt sepsis at this time. I spoke with Dr. Garcia for admission to a medical surgical bed. Dr. Garcia would like the patient admitted for G- tube placement as he has not taking in food or fluids. Departure Diagnosis: Primary Impression: Dehydration Additional Impressions: Failure to thrive Failure to thrive age range: in adult Qualified Codes: R62.7 - Adult failure to thrive Cystitis Condition: VICKY Gonzalez MD Dec 07, 2018 21:49
[2018-12-08 00:31] VITALS: BP 157/70; PULSE 74; RESP 18
[2018-12-08 00:54] VITALS: BMI 13.4
[2018-12-08 02:00] VITALS: BP 136/63; PULSE 78; RESP 18
[2018-12-08 07:25] VITALS: BP 152/60; PULSE 77; RESP 18
[2018-12-08] MEDS ORDERED: metFORMIN 500 MG TAB PO SCH (08:00)
[2018-12-08] MEDS: ACCU-CHEK XX SCH ×4 (08:00→20:47)
[2018-12-08] MEDS: CINACALCET 30 MG TAB PO SCH ×2 (09:00→21:00)
[2018-12-08] MEDS: CLOPIDOGREL 75 MG TAB PO SCH (09:11)
[2018-12-08] MEDS: ZINC SULFATE 220 MG CAP PO SCH (09:11)
[2018-12-08] MEDS: MULTIVITAMINS/MINERALS TAB PO SCH (09:12)
[2018-12-08] MEDS: ASCORBIC ACID 500 MG TAB PO SCH (09:13)
[2018-12-08] MEDS: ALLOPURINOL 100 MG TAB PO SCH ×2 (09:15→20:42)
[2018-12-08 13:37] VITALS: BP 149/65; PULSE 81; RESP 16
--- NOTE | 2018-12-08 14:25 | HP ---
Date/Time of Note Date/Time of Note DATE: 12/08/18 TIME: 14:11 Assessment/Plan VTE Prophylaxis Risk score (from Ns)>0 risk: 4 SCD applied (from [facility] [place]): No SCD contraindicated: patient refusal Pharmacological prophylaxis: LMWH Lines/Catheters IV [facility] Saline Lock Urinary Cath still in place: Yes Reason Cath still needed: urinary retention Assessment/Plan Assessment/Plan -Failure to thrive -Dehydration, start IV fluids -Anorexia. Dr. Arnold is asked to see patient in gastroenterology consultation. -Severe protein calorie malnutrition -Coronary artery disease status post stent placement, continue Plavix -Diabetes, NovoLog per sliding scale. -Acute kidney injury on chronic kidney disease Further recommendations based on clinical course. Plan of care discussed with Dr. Garcia. Result Diagram: 12/07/18195312/07/181953 Results 24hrs Laboratory Tests Test 12/07/18 19:54 12/07/18 21:20 12/08/18 00:22 12/08/18 02:17 White Blood Count 7.6 # Red Blood Count 3.77 L Hemoglobin 11.6 L Hematocrit 37.0 L Mean Corpuscular 98.1 Volume Mean Corpuscular 30.8 Hemoglobin Mean Corpuscular 31.4 L Hemoglobin Concent Red Cell 14.5 Distribution Width Platelet Count 207 # Mean Platelet Volume 11.5 H Immature 0.300 Granulocytes % Neutrophils % 71.1 Lymphocytes % 16.4 Monocytes % 6.8 Eosinophils % 4.6 Basophils % 0.8 Nucleated Red Blood 0.0 Cells % Immature 0.020 Granulocytes # Neutrophils # 5.4 Lymphocytes # 1.3 Monocytes # 0.5 Eosinophils # 0.4 Basophils # 0.1 Nucleated Red Blood 0.0 Cells # Prothrombin Time 11.8 L Prothrombin Time 0.9 Ratio INR International 0.86 Normalized Ratio Activated 25.8 Partial Thromboplast Time Sodium Level 145 H Potassium Level 4.9 Chloride Level 105 Carbon Dioxide Level 30 Anion Gap 10 Blood Urea Nitrogen 42 H Creatinine 1.65 H Est Glomerular Filtrat Rate mL/min Glucose Level 119 Calcium Level 10.2 Total Bilirubin 0.1 L Direct Bilirubin 0.00 Indirect Bilirubin 0.1 Aspartate Amino 24 Transf (AST/SGOT) Alanine 15 Aminotransferase (AL T/SGPT) Alkaline Phosphatase 87 Troponin I 0.028 Total Protein 6.5 Albumin 3.5 Globulin 3.00 Albumin/Globulin 1.16 Ratio Urine Color YELLOW Urine Clarity CLEAR Urine pH 5.0 Urine Specific 1.018 Wren Urine Ketones TRACE A Urine Nitrite NEGATIVE Urine Bilirubin NEGATIVE Urine Urobilinogen NEGATIVE Urine Leukocyte NEGATIVE Esterase Urine Microscopic 58 H RBC Urine Microscopic 8 H WBC Urine Bacteria FEW A Urine Hemoglobin 2+ H Urine Glucose NEGATIVE Urine Total Protein NEGATIVE Lactic Acid Level 1.3 Bedside Glucose 105 Test 12/08/18 08:45 12/08/18 12:56 Bedside Glucose 95 95 HPI/ROS Admit Date/Time Admit Date/Time Dec 07, 2018 at 20:15 Hx of Present Illness The patient is a 83-year-old cachectic male with history of dementia, coronary artery disease, status post stent placement, hypertension, hyperlipidemia diabetes, chronic kidney disease, CVA, heart cachexia and failure to thrive, history of multiple pressure ulcers. [facility] for [facility] and anorexia. Patient is awake alert however cannot provide any medical history due to dementia, most history was taking from medical records and talking to nursing staff. No fever, nausea vomiting, diarrhea were reported. Patient will be admitted for hydration and possible G- tube placement. ROS 12 point review of system is negative except for that mentioned in HPI PMH/Family/Social Past Medical History Medical History: coronary artery disease, diabetes, high cholesterol, hypertens ion, renal disease Medications Current Medications Ondansetron HCl (Zofran Inj) 4 mg BRIDGE ORDER PRN IV NAUSEA/VOMITING; Start 12/07/18 at 20:30; Stop 12/08/18 at 20:29 Acetaminophen (Tylenol Tab) 650 mg ER BRIDGE PRN PO .MILD PAIN 1-3 OR TEMP; Start 12/07/18 at 20:30; Stop 12/08/18 at 20:29 Acetaminophen (Tylenol Tab) 650 mg Q4H PRN PO PAIN 1-10/10; Start 12/08/18 at 01:30 Allopurinol (Zyloprim) 100 mg BID PO Last administered on 12/08/18at 09:15; Ad min Dose 100 MG; Start 12/08/18 at 09:00 Ascorbic Acid (Vitamin C) 500 mg DAILY PO Last administered on 12/08/18at 09:13; Admin Dose 500 MG; Start 12/08/18 at 09:00 Atorvastatin Calcium (Lipitor) 40 mg QHS PO ; Start 12/08/18 at 21:00 Cinacalcet (Sensipar) 60 mg BID PO ; Start 12/08/18 at 09:00 Clopidogrel Bisulfate (plaVIX) 75 mg DAILY PO Last administered on 12/08/18at 09:11; Admin Dose 75 MG; Start 12/08/18 at 09:00 Hydralazine HCl (Apresoline) 50 mg BID PO Last administered on 12/08/18 09:13; Admin Dose 50 MG; Start 12/08/18 at 09:00 Metformin HCl (Glucophage) 1,000 mg WITH BREAKFAST DINNE PO ; Start 12/08/18 at 08:00; Status UNV Zinc Sulfate (Zinc Sulfate) 220 mg DAILY PO Last administered on 12/08/18 09:11; Admin Dose 220 MG; Start 12/08/18 at 09:00 Multivitamins/ Minerals (Theragran-M) 1 tab DAILY PO Last administered on 12/08/18 09:12; Admin Dose 1 TAB; Start 12/08/18 at 09:00 Diagnostic Test (Pha) (Accu-Chek) 1 ea AC MEALS AND BEDTIME XX Last administered on 12/08/18 08:00; Admin Dose 1 EA; Start 12/08/18 at 07:00 Miscellaneous Information (*Order Clarification Bulletin) MEDICATION REQUIRES CLARIFICATI... Q8H XX ; Start 12/08/18 at 02:00 Influenza Virus Vaccine Quadrival (Fluzone) 0.5 ml ONCE ONCE IM* ; Start 12/10/18 at 10:00; Stop 12/10/18 at 10:01 Coded Allergies: No Known Allergy (Unverified , 12/07/18) Past Surgical History Past Surgical Hx: other (Status post cardiac stent placement in 1994 and 2005) Family History Significant Family History: COPD, diabetes, hypertension Social History Alcohol Use: none Smoking Status: Former smoker Drug Use: none Exam/Review of Systems Vital Signs Vitals Vital Signs Date Temp Pulse Resp B/P (MAP) Pulse Ox O2 O2 Flow FiO2 Time Delivery Rate 12/08/18 97.5 81 16 149/65 99 Room Air 13:37 (93) Intake and Output 12/07/18 12/07/18 12/08/18 1515:00 23:00 07:00 IntakeIntake Total 150 ml OutputOutput Total 300 ml BalanceBalance -150 ml Exam Constitutional: frail Head: normocephalic Respiratory: clear to auscultation Cardiovascular: nl pulses Gastrointestinal: soft, non-tender Musculoskeletal: nl extremities to inspection Extremities: normal pulses Neurological: confused SERINA MARSHALL Dec 08, 2018 14:22
[2018-12-08] MEDS: D5W-0.45 NACL + KCL 20 MEQ 1,000 ML IV SCH (17:15)
[2018-12-08 20:00] VITALS: BP 147/67; PULSE 95; RESP 17
[2018-12-08] MEDS: ATORVASTATIN 40 MG TAB PO SCH (20:42)
[2018-12-09 02:00] VITALS: BP 128/63; PULSE 94; RESP 18
[2018-12-09] MEDS: D5W-0.45 NACL + KCL 20 MEQ 1,000 ML IV SCH ×2 (04:51→17:26)
[2018-12-09 07:56] VITALS: BP 139/65; PULSE 81; RESP 18
[2018-12-09] MEDS: MULTIVITAMINS/MINERALS TAB PO SCH (08:36)
[2018-12-09] MEDS: CINACALCET 30 MG TAB PO SCH ×2 (08:36→20:59)
[2018-12-09] MEDS: CLOPIDOGREL 75 MG TAB PO SCH (08:36)
[2018-12-09] MEDS: ASCORBIC ACID 500 MG TAB PO SCH (08:37)
[2018-12-09] MEDS: ALLOPURINOL 100 MG TAB PO SCH ×2 (08:37→20:59)
[2018-12-09] MEDS: ZINC SULFATE 220 MG CAP PO SCH (08:37)
[2018-12-09] MEDS: ACCU-CHEK XX SCH ×4 (08:51→21:00)
--- NOTE | 2018-12-09 11:49 | PN ---
Date/Time of Note Date/Time of Note DATE: 12/09/18 TIME: 11:46 Assessment/Plan VTE Prophylaxis Risk score (from Ns)>0 risk: 5 SCD applied (from Ns): No SCD contraindicated: other Pharmacological prophylaxis: other Pharm contraindication: other Lines/Catheters [facility] Peripheral IV Urinary Cath still in place: Yes Reason Cath still needed: urinary retention Assessment/Plan Assessment/Plan -Failure to thrive -Dehydration, start IV fluids -Anorexia. Dr. Arnold is asked to see patient in gastroenterology consultation. -Severe protein calorie malnutrition - diabetic boost - dietary consult -Coronary artery disease status post stent placement, continue Plavix -Diabetes, NovoLog per sliding scale. -Acute kidney injury on chronic kidney disease - cont IVF - NO LABS TODAY- bmp today Further recommendations based on clinical course. Plan of care discussed with Dr. Garcia. Result Diagram: 12/07/18195312/07/181953 Results 24hrs Laboratory Tests Test 12/08/18 12:56 12/08/18 17:17 12/08/18 20:44 12/09/18 08:35 Bedside Glucose 95 91 214 109 Exam/Review of Systems Exam Vitals Vital Signs Date Temp Pulse Resp B/P (MAP) Pulse Ox O2 O2 Flow FiO2 Time Delivery Rate 12/09/18 98.1 81 18 139/65 92 Room Air 07:56 (89) Intake and Output 12/08/18 12/08/18 12/09/18 1515:00 23:00 07:00 IntakeIntake Total 200 ml 1060 ml OutputOutput Total 250 ml 250 ml BalanceBalance -50 ml 810 ml Constitutional: alert, frail Psych: nl mood/affect Eyes: nl lids, nl sclera ENMT: nl external ears & nose Respiratory: clear to auscultation Cardiovascular: nl pulses Gastrointestinal: soft, non-tender Musculoskeletal: muscle weakness, range of motion Extremities: normal pulses Neurological: confused, other (alert) Lymph: nontender Results Results 24hrs Laboratory Tests Test 12/08/18 12:56 12/08/18 17:17 12/08/18 20:44 12/09/18 08:35 Bedside Glucose 95 91 214 109 Medications Medication Current Medications Acetaminophen (Tylenol Tab) 650 mg Q4H PRN PO PAIN 1-10/10; Start 12/08/18 at 01:30 Allopurinol (Zyloprim) 100 mg BID PO Last administered on 12/09/18 08:37; Admin Dose 100 MG; Start 12/08/18 at 09:00 Ascorbic Acid (Vitamin C) 500 mg DAILY PO Last administered on 12/09/18 08:37; Admin Dose 500 MG; Start 12/08/18 at 09:00 Atorvastatin Calcium (Lipitor) 40 mg QHS PO Last administered on 12/08/18 20:42; Admin Dose 40 MG; Start 12/08/18 at 21:00 Cinacalcet (Sensipar) 60 mg BID PO Last administered on 12/09/18 08:36; Admin Dose 60 MG; Start 12/08/18 at 09:00 Clopidogrel Bisulfate (plaVIX) 75 mg DAILY PO Last administered on 12/09/18 08:36; Admin Dose 75 MG; Start 12/08/18 at 09:00 Hydralazine HCl (Apresoline) 50 mg BID PO Last administered on 12/09/18 08:37; Admin Dose 50 MG; Start 12/08/18 at 09:00 Zinc Sulfate (Zinc Sulfate) 220 mg DAILY PO Last administered on 12/09/18 08:37; Admin Dose 220 MG; Start 12/08/18 at 09:00 Multivitamins/ Minerals (Theragran-M) 1 tab DAILY PO Last administered on 12/09/18 08:36; Admin Dose 1 TAB; Start 12/08/18 at 09:00 Diagnostic Test (Pha) (Accu-Chek) 1 ea AC MEALS AND BEDTIME XX Last administered on 12/09/18 08:51; Admin Dose 1 EA; Start 12/08/18 at 07:00 Influenza Virus Vaccine Quadrival (Fluzone) 0.5 ml ONCE ONCE IM* ; Start 12/10/18 at 10:00; Stop 12/10/18 at 10:01 Potassium Chloride/Dextrose/ Sod Cl 1,000 ml @ 80 mls/hr [id number] IV Last administered on 12/09/18 04:51; Admin Dose 80 MLS/HR; Start 12/08/18 at 15:30 PARKER WOOD Dec 09, 2018 11:49
[2018-12-09 13:53] VITALS: BP 134/66; PULSE 75; RESP 17
[2018-12-09 20:00] VITALS: BP 159/71; PULSE 75; RESP 19
[2018-12-09] MEDS: ATORVASTATIN 40 MG TAB PO SCH (20:59)
--- NOTE | 2018-12-09 21:51 | CONS ---
DATE OF ADMISSION: 12/07/2018 DATE OF CONSULTATION: Dear Dr. Garcia: Thank you for asking me to see Mr. Jean Paul Wallace in GI consultation. HISTORY OF PRESENT ILLNESS: The patient, as you know, is an 83-year-old male admitt ed to the hospital because of the fact that he is not able to thrive. He is not gaining weight. He is not eating adequately. He is losing weight. Percutaneous endoscopic gastrostomy tube needs to be considered. Hence, the consultation is requested. The patient is a poor historian. He has a history of coronary artery disease status post stent placement, history of diabetes, history of kidney injury. No history of nausea, vomiting. No GI bleeding. No fever. No jaundice. MEDICATIONS PRIOR TO THE ADMISSION: Include: 1. Clopidogrel 2. Atorvastatin. 3. Hydralazine. 4. Tylenol. 5. Zinc sulfate. 6. Sensipar. 7. Glucophage. 8. Vitamin C. 9. Multivitamins. 10. Allopurinol. PHYSICAL EXAMINATION: GENERAL: The patient is an 83-year-old male who at this time is alert. He is thin built. He actually is cachectic. VITAL SIGNS: Afebrile. Temperature is 98.3. Blood pressure is 134/66. CARDIOVASCULAR: Normal sinus rhythm. LUNGS: Revealed normal breath sounds. No adventitious sounds. ABDOMEN: Showed no palpable masses. He has got palpable aortic pulsations. LABORATORY WORKUP: Prothrombin time 11.8. Hemoglobin 11.1, WBC count 5100. Potassium 4.4, the albu min is 3.5, BUN is 42, creatinine 1.65. CLINICAL IMPRESSION: The patient is unable to eat adequately. He is losing weight. Percutaneous en doscopic gastrostomy tube may be a good consideration. It can be performed if the family agrees. Once again, doctor, thank you for this consultation. Sincerely, Dictated By: SATHISH NIX MD NC/TAJ Conf#: [id number] DID#: [id number] CC: KOSTAS GARCIA MD;*EndCC*
[2018-12-10] VITALS (11 sets, daily range): BP systolic 125–156; BP diastolic 55–79; PULSE 54–92; RESP 12–20; Ht 182.9 cm; Wt 47.7 kg
[2018-12-10] MEDS: D5W-0.45 NACL + KCL 20 MEQ 1,000 ML IV SCH ×2 (06:02→17:30)
[2018-12-10] MEDS: ASCORBIC ACID 500 MG TAB PO SCH (08:47)
[2018-12-10] MEDS: MULTIVITAMINS/MINERALS TAB PO SCH (08:47)
[2018-12-10] MEDS: ALLOPURINOL 100 MG TAB PO SCH ×2 (08:47→21:00)
[2018-12-10] MEDS: ACCU-CHEK XX SCH ×4 (08:47→21:00)
[2018-12-10] MEDS: CLOPIDOGREL 75 MG TAB PO SCH (08:47)
[2018-12-10] MEDS: ZINC SULFATE 220 MG CAP PO SCH (08:47)
[2018-12-10] MEDS: CINACALCET 30 MG TAB PO SCH ×2 (08:47→21:00)
--- NOTE | 2018-12-10 09:53 | PN ---
Date/Time of Note Date/Time of Note DATE: 12/10/18 TIME: 09:52 Assessment/Plan VTE Prophylaxis Risk score (from Ns)>0 risk: 8 SCD applied (from Nsg): No Lines/Catheters IV Catheter Type (from Nrs): Peripheral IV Urinary Cath still in place: Yes Assessment/Plan Assessment/Plan -Failure to thrive -Dehydration, start IV fluids -Anorexia. Dr. Arnold is asked to see patient in gastroenterology consultation. -Severe protein calorie malnutrition - diabetic boost - dietary consult -Coronary artery disease status post stent placement, continue Plavix -Diabetes, NovoLog per sliding scale. -Acute kidney injury on chronic kidney disease - cont IVF - NO LABS TODAY- bmp today Further recommendations based on clinical course. Plan of care discussed with Dr. Garcia. Result Diagram: 12/10/18 0702 12/10/18 0702 Results 24hrs Laboratory Tests Test 12/09/18 12:11 12/09/18 12:34 12/09/18 17:24 12/09/18 21:04 White Blood Count 5.1 # Red Blood Count 3.59 L Hemoglobin 11.1 L Hematocrit 35.6 L Mean Corpuscular 99.2 Volume Mean Corpuscular 30.9 Hemoglobin Mean Corpuscular 31.2 L Hemoglobin Concent Red Cell 14.3 Distribution Width Platelet Count 163 # Mean Platelet Volume 11.3 H Immature 0.400 Granulocytes % Neutrophils % 73.2 Lymphocytes % 14.5 L Monocytes % 6.5 Eosinophils % 4.8 Basophils % 0.6 Nucleated Red Blood 0.0 Cells % Immature 0.020 Granulocytes # Neutrophils # 3.7 Lymphocytes # 0.7 L Monocytes # 0.3 Eosinophils # 0.2 Basophils # 0.0 Nucleated Red Blood 0.0 Cells # Sodium Level 142 Potassium Level 4.4 Chloride Level 109 Carbon Dioxide Level 27 Anion Gap 6 Blood Urea Nitrogen 20 # Creatinine 1.17 Est Glomerular Filtrat Rate mL/min Glucose Level 118 Calcium Level 10.1 Bedside Glucose 107 115 156 Test 12/10/18 07:02 12/10/18 08:39 White Blood Count 4.9 Red Blood Count 3.50 L Hemoglobin 10.8 L Hematocrit 35.0 L Mean Corpuscular 100.0 Volume Mean Corpuscular 30.9 Hemoglobin Mean Corpuscular 30.9 L Hemoglobin Concent Red Cell 14.4 Distribution Width Platelet Count 148 Mean Platelet Volume 11.0 H Immature 0.400 Granulocytes % Neutrophils % 68.4 Lymphocytes % 17.2 Monocytes % 8.1 Eosinophils % 5.5 Basophils % 0.4 Nucleated Red Blood 0.0 Cells % Immature 0.020 Granulocytes # Neutrophils # 3.4 Lymphocytes # 0.9 Monocytes # 0.4 Eosinophils # 0.3 Basophils # 0.0 Nucleated Red Blood 0.0 Cells # Sodium Level 140 Potassium Level 5.0 Chloride Level 107 Carbon Dioxide Level 26 Anion Gap 7 Blood Urea Nitrogen 17 Creatinine 1.00 Est Glomerular Filtrat Rate mL/min Glucose Level 113 Calcium Level 9.4 Bedside Glucose 126 Subjective 24 Hr Interval Summary Free Text/Dictation PEG placement today Exam/Review of Systems Exam Vitals Vital Signs Date Temp Pulse Resp B/P (MAP) Pulse Ox O2 O2 Flow FiO2 Time Delivery Rate 12/10/18 63 100 Room Air 08:37 12/10/18 97.5 14 136/64 08:23 (88) Intake and Output 12/09/18 12/09/18 12/10/18 1515:00 23:00 07:00 IntakeIntake Total 1000 ml 1290 ml OutputOutput Total 450 ml BalanceBalance -450 ml 1000 ml 1290 ml Constitutional: alert, frail Psych: nl mood/affect Eyes: nl lids, nl sclera ENMT: nl external ears & nose Respiratory: clear to auscultation Cardiovascular: nl pulses, other Gastrointestinal: soft, non-tender Musculoskeletal: muscle weakness, range of motion Extremities: normal pulses Neurological: confused Results Results 24hrs Laboratory Tests Test 12/09/18 12:11 12/09/18 12:34 12/09/18 17:24 12/09/18 21:04 White Blood Count 5.1 # Red Blood Count 3.59 L Hemoglobin 11.1 L Hematocrit 35.6 L Mean Corpuscular 99.2 Volume Mean Corpuscular 30.9 Hemoglobin Mean Corpuscular 31.2 L Hemoglobin Concent Red Cell 14.3 Distribution Width Platelet Count 163 # Mean Platelet Volume 11.3 H Immature 0.400 Granulocytes % Neutrophils % 73.2 Lymphocytes % 14.5 L Monocytes % 6.5 Eosinophils % 4.8 Basophils % 0.6 Nucleated Red Blood 0.0 Cells % Immature 0.020 Granulocytes # Neutrophils # 3.7 Lymphocytes # 0.7 L Monocytes # 0.3 Eosinophils # 0.2 Basophils # 0.0 Nucleated Red Blood 0.0 Cells # Sodium Level 142 Potassium Level 4.4 Chloride Level 109 Carbon Dioxide Level 27 Anion Gap 6 Blood Urea Nitrogen 20 # Creatinine 1.17 Est Glomerular Filtrat Rate mL/min Glucose Level 118 Calcium Level 10.1 Bedside Glucose 107 115 156 Test 12/10/18 07:02 12/10/18 08:39 White Blood Count 4.9 Red Blood Count 3.50 L Hemoglobin 10.8 L Hematocrit 35.0 L Mean Corpuscular 100.0 Volume Mean Corpuscular 30.9 Hemoglobin Mean Corpuscular 30.9 L Hemoglobin Concent Red Cell 14.4 Distribution Width Platelet Count 148 Mean Platelet Volume 11.0 H Immature 0.400 Granulocytes % Neutrophils % 68.4 Lymphocytes % 17.2 Monocytes % 8.1 Eosinophils % 5.5 Basophils % 0.4 Nucleated Red Blood 0.0 Cells % Immature 0.020 Granulocytes # Neutrophils # 3.4 Lymphocytes # 0.9 Monocytes # 0.4 Eosinophils # 0.3 Basophils # 0.0 Nucleated Red Blood 0.0 Cells # Sodium Level 140 Potassium Level 5.0 Chloride Level 107 Carbon Dioxide Level 26 Anion Gap 7 Blood Urea Nitrogen 17 Creatinine 1.00 Est Glomerular Filtrat Rate mL/min Glucose Level 113 Calcium Level 9.4 Bedside Glucose 126 Medications Medication Current Medications Acetaminophen (Tylenol Tab) 650 mg Q4H PRN PO PAIN 1-07/01; Start 12/08/18 at 01:30 Allopurinol (Zyloprim) 100 mg BID PO Last administered on 12/09/18at 20:59; Admin Dose 100 MG; Start 12/08/18 at 09:00 Ascorbic Acid (Vitamin C) 500 mg DAILY PO Last administered on 12/09/18at 08:37; Admin Dose 500 MG; Start 12/08/18 at 09:00 Atorvastatin Calcium (Lipitor) 40 mg QHS PO Last administered on 12/09/18at 20:59; Admin Dose 40 MG; Start 12/08/18 at 21:00 Cinacalcet (Sensipar) 60 mg BID PO Last administered on 12/09/18at 20:59; Admin Dose 60 MG; Start 12/08/18 at 09:00 Clopidogrel Bisulfate (plaVIX) 75 mg DAILY PO Last administered on 12/09/18at 08:36; Admin Dose 75 MG; Start 12/08/18 at 09:00 Hydralazine HCl (Apresoline) 50 mg BID PO Last administered on 12/09/18 20:58; Admin Dose 50 MG; Start 12/08/18 at 09:00 Zinc Sulfate (Zinc Sulfate) 220 mg DAILY PO Last administered on 12/09/18 08:37; Admin Dose 220 MG; Start 12/08/18 at 09:00 Multivitamins/ Minerals (Theragran-M) 1 tab DAILY PO Last administered on 12/09 08:36; Admin Dose 1 TAB; Start 12/08/18 at 09:00 Diagnostic Test (Pha) (Accu-Chek) 1 ea AC MEALS AND BEDTIME XX Last administered on 12/09/18 18:07; Admin Dose 1 EA; Start 12/08/18 at 07:00 Influenza Virus Vaccine Quadrival (Fluzone) 0.5 ml ONCE ONCE IM* ; Start 12/10/18 at 10:00; Stop 12/10/18 at 10:01 Potassium Chloride/Dextrose/ Sod Cl 1,000 ml @ 80 mls/hr [id number] IV Last administered on 12/10/18 06:02; Admin Dose 80 MLS/HR; Start 12/08/18 at 15:30 PARKER WOOD Dec 10, 2018 09:53
[2018-12-10] MEDS ORDERED: INFLUENZA VIRUS VACCINE 0.5 ML (DISPENSING) IM* ONE (10:00)
--- NOTE | 2018-12-10 15:15 | PREAC ---
Date/Time of Note Date/Time of Note DATE: 12/10/18 TIME: 15:10 Anesthesia Eval and Record Evaluation Time Pre-Procedure Interview DATE: 12/10/18 TIME: 15:09 Age 83 Sex male NPO: 8 hrs Preoperative diagnosis weight loss Planned procedure EGD, PEG placement Past Medical History Past Medical History: Includes Cardio: Dyslipidemia, CAD, PTCA/Stent Endo: Diabetes Renal: CKD Heme: Anemia Surgery & Anesthesia Issues No known issue Meds Anticoagulation: Yes (plavix held) Beta Lico within 24 hr: No Reason Beta Lico not given: Pt. not on B-Lico Active Scripts Allopurinol* (Allopurinol*) 100 Mg Tablet, 100 MG PO BID for 30 Days, TAB Prov:SARITA HERNANDEZ MD 11/27/18 Reported Medications Zinc Sulfate* (Zinc Sulfate*) 220 Mg Tablet, 220 MG PO DAILY, TAB FOR 14 DAYS,START DATE 12/06/18 AND END DATE 12/20/18 12/07/18 Ascorbic Acid (Vitamin C) 500 Mg Tab, 500 MG PO DAILY, TAB 12/07/18 Multivitamin with Minerals (Multivitamins with Minerals) 1 Each Tablet, 1 EACH PO DAILY, TAB 12/07/18 Acetaminophen* (Acetaminophen*) 325 Mg Tablet, 650 MG PO Q4H PRN for PAIN 1- 07/01, #30 TAB 12/07/18 Hydralazine Hcl* (Hydralazine Hcl*) 50 Mg Tab, 50 MG PO BID, #90 TAB HOLD FOR SBP<110 OR VA<60 11/22/18 Clopidogrel Bisulfate (Clopidogrel) 75 Mg Tablet, 75 MG PO DAILY, #30 TAB 11/22/18 Metformin* (Glucophage*) 1,000 Mg Tablet, 1000 MG PO WITH BREAKFAST DINNE, #30 TAB 11/22/18 Atorvastatin* (Atorvastatin*) 40 Mg Tablet, 40 MG PO QHS, #30 TAB 11/22/18 Cinacalcet* (Sensipar*) 60 Mg Tablet, 60 MG PO BID, TAB 11/22/18 Discontinued Scripts Heparin Sodium,Porcine (Heparin Sodium) 5,000 Unit/1 Ml Vial, 5000 UNIT SC BID for 7 Days, VIAL Prov:SARITA HERNANDEZ MD 11/27/18 Current Medications Acetaminophen (Tylenol Tab) 650 mg Q4H PRN PO PAIN 1-07/01; Start 12/08/18 at 01:30 Allopurinol (Zyloprim) 100 mg BID PO Last administered on 12/09/18 20:59; Admin Dose 100 MG; Start 12/08/18 at 09:00 Ascorbic Acid (Vitamin C) 500 mg DAILY PO Last administered on 12/09/18 08:37; Admin Dose 500 MG; Start 12/08/18 at 09:00 Atorvastatin Calcium (Lipitor) 40 mg QHS PO Last administered on 12/09/18 20:59; Admin Dose 40 MG; Start 12/08/18 at 21:00 Cinacalcet (Sensipar) 60 mg BID PO Last administered on 12/09/18 20:59; Admin Dose 60 MG; Start 12/08/18 at 09:00 Clopidogrel Bisulfate (plaVIX) 75 mg DAILY PO Last administered on 12/09/18 08:36; Admin Dose 75 MG; Start 12/08/18 at 09:00 Hydralazine HCl (Apresoline) 50 mg BID PO Last administered on 12/09/18 20:58; Admin Dose 50 MG; Start 12/08/18 at 09:00 Zinc Sulfate (Zinc Sulfate) 220 mg DAILY PO Last administered on 12/09/18 08:37; Admin Dose 220 MG; Start 12/08/18 at 09:00 Multivitamins/ Minerals (Theragran-M) 1 tab DAILY PO Last administered on 12/09/18 08:36; Admin Dose 1 TAB; Start 12/08/18 at 09:00 Diagnostic Test (Pha) (Accu-Chek) 1 ea AC MEALS AND BEDTIME XX Last administered on 12/09/18 18:07; Admin Dose 1 EA; Start 12/08/18 at 07:00 Potassium Chloride/Dextrose/ Sod Cl 1,000 ml @ 80 mls/hr [id number] IV Last administered on 12/10/18 06:02; Admin Dose 80 MLS/HR; Start 12/08/18 at 15:30 Meds reviewed: Yes Allergies Coded Allergies: No Known Allergy (Unverified , 12/07/18) Allergies Reviewed: Yes Labs/Studies Labs Reviewed: Reviewed by anesthesiologist Result Diagram: 12/10/18 0702 12/10/18 0702 Laboratory Tests 12/10/18 07:02 test: N/A Pre-procedure Exam Last vitals Vital Signs Date Temp Pulse Resp B/P (MAP) Pulse Ox O2 O2 Flow FiO2 Time Delivery Rate 12/10/18 98.2 80 14 139/64 100 Room Air 13:42 (89) Airway: Adequate mouth opening, Adequate thyromental dist Mallampati: Mallampati II Teeth: Normal Lung: Normal Heart: Normal ASA Physical Status ASA physical status: 3 Emergency: None Planned Anesthetic General/MAC: Mask Planned Pain Management Parenteral pain med Pre-operative Attestations Prior to commencing anesthesia and surgery, the patient was re-evaluated, there was verification of: *The patient's identity *The results of appropriate recent lab work and preoperative vital signs *The above evaluation not changing prior to induction *Anesthetic plan, risk benefits, alternative and complications discussed with patient/family; questions answered; patient/family understands, accepts and wis hes to proceed. SYDNEE BARNES MD Dec 10, 2018 15:15
[2018-12-10] MEDS ORDERED: PROPOFOL 20 ML ONE (15:17)
[2018-12-10] MEDS ORDERED: LIDOCAINE 2% (SDV) 5 ML INJ ONE (15:17)
[2018-12-10] MEDS ORDERED: CEFAZOLIN 2 GM/50 ML (PMX) 50 ML IVPB ONE (15:17)
[2018-12-10] MEDS ORDERED: HYDROmorphONE 1 MG/5 ML IV SYRINGE IV PRN (15:30)
[2018-12-10] MEDS ORDERED: ONDANSETRON 4 MG INJ IV PRN (15:30)
--- NOTE | 2018-12-10 16:08 | PAC ---
Date/Time of Note Date/Time of Note DATE: 12/10/18 TIME: 16:08 Post-Anesthesia Notes Post-Anesthesia Note Last documented vital signs Vital Signs Date Temp Pulse Resp B/P (MAP) Pulse Ox O2 O2 Flow FiO2 Time Delivery Rate 12/10/18 98.2 80 14 139/64 100 Room Air 13:42 (89) Activity: WNL Respiratory function: WNL Cardiovascular function: WNL Mental status: Baseline Pain reasonably controlled: Yes Hydration appropriate: Yes Nausea/Vomiting absent: Yes Comments BP: 118/60 HR: 82 RR: 15 T: 98 SaO2: 99% SYDNEE BARNES MD Dec 10, 2018 16:08
[2018-12-10] MEDS: ATORVASTATIN 40 MG TAB PO SCH (21:00)
[2018-12-11 02:00] VITALS: BP 121/57; PULSE 73; RESP 18
--- NOTE | 2018-12-11 03:36 | GILP ---
DATE OF PROCEDURE: NAME OF PROCEDURE: Esophagogastroduodenoscopy, percutaneous endoscopic gastrostomy tube placement. PREOPERATIVE DIAGNOSIS: The patient is presenting with history of difficulty in swallowing and has l ost a great deal of weight. Procedure at this time is performed to create access for long-term nutri tional support. POSTOPERATIVE DIAGNOSIS: The patient presenting with history of difficulty in swallowing and has los t a great deal of weight procedure at this time is performed to create access for long-term nutrition al support. DESCRIPTION OF PROCEDURE: After the informed written consent was obtained, the patient was asked to lie on a supine position. Intravenous anesthesia was given by anesthesiologist, Dr. Zepeda. When the patient became somnolent, the Olympus video upper endoscope was inserted into the oropharynx, then in to the esophagus. Esophagus appeared normal. Stomach appeared normal except minimal gastritis of th e fundus of the stomach. Endoscope at this time was advanced into the duodenum. The duodenum appear ed normal. Endoscope at this time was withdrawn to the level of the gastric cavity. The anterior ab dominal wall was prepared with Betadine and alcohol. A 2 mL of 2% Xylocaine was infiltrated at the e ndoscopic illuminating site. At this time, 5 mm incision was made by using the scalpel. Through thi s incision, a trocar was inserted into the stomach and stylet was removed and through the trocar, a g uidewire was inserted into the stomach and the guidewire was grabbed with a polypectomy snare and the n brought out through the mouth along with the endoscope. To this end of the guidewire, a #20 Microv asive G-tube was tied in a loop fashion and then it was brought out through the abdominal wall incisi on. Retention bumper was placed over the G-tube close to the skin. The tapered end of the gastrosto my tube was cut. The adapter was placed and the procedure was terminated. PLAN: I recommend to start the G-tube feeding in a.m. Dictated By: SATHISH MCCRAY/TAJ Conf#: [id number] DID#: [id number] CC: KOSTAS ROTH MD;*EndCC*
[2018-12-11] MEDS: D5W-0.45 NACL + KCL 20 MEQ 1,000 ML IV SCH (04:51)
[2018-12-11] MEDS: ACCU-CHEK XX SCH (07:00)
[2018-12-11 08:00] VITALS: BP 109/57; PULSE 105; RESP 18
[2018-12-11] MEDS: CINACALCET 30 MG TAB PO SCH ×2 (08:18→20:28)
[2018-12-11] MEDS: CLOPIDOGREL 75 MG TAB PO SCH (08:18)
[2018-12-11] MEDS: ASCORBIC ACID 500 MG TAB PO SCH (08:19)
[2018-12-11] MEDS: MULTIVITAMINS/MINERALS TAB PO SCH (08:19)
[2018-12-11] MEDS: ALLOPURINOL 100 MG TAB PO SCH ×2 (08:19→20:27)
[2018-12-11] MEDS: ZINC SULFATE 220 MG CAP PO SCH (08:19)
--- NOTE | 2018-12-11 09:06 | PN ---
Date/Time of Note Date/Time of Note DATE: 12/11/18 TIME: 09:03 Assessment/Plan VTE Prophylaxis Risk score (from Ns)>0 risk: 7 SCD applied (from Nsg): No Lines/Catheters IV Catheter Type (from Nrs): Peripheral IV Urinary Cath still in place: Yes Reason Cath still needed: urinary retention Assessment/Plan Assessment/Plan -Failure to thrive -Dehydration, start IV fluids -Anorexia. Dr. Arnold is asked to see patient in gastroenterology consultation. -Severe protein calorie malnutrition - diabetic boost - dietary consult -Coronary artery disease status post stent placement, continue Plavix -Diabetes, NovoLog per sliding scale. -Acute kidney injury on chronic kidney disease - BUN/Cr - wnl Further recommendations based on clinical course. Plan of care discussed with Dr. Garcia. Result Diagram: 12/11/18 0721 12/10/18 0702 Results 24hrs Laboratory Tests Test 12/10/18 11:41 12/10/18 15:23 12/10/18 17:13 12/10/18 21:40 Bedside Glucose 106 97 81 98 Test 12/11/18 07:21 12/11/18 08:15 White Blood Count 5.9 # Red Blood Count 3.64 L Hemoglobin 11.2 L Hematocrit 35.7 L Mean Corpuscular 98.1 Volume Mean Corpuscular 30.8 Hemoglobin Mean Corpuscular 31.4 L Hemoglobin Concent Red Cell 14.1 Distribution Width Platelet Count 158 Mean Platelet Volume 12.2 H Immature 0.500 H Granulocytes % Neutrophils % 81.7 H Lymphocytes % 8.9 L Monocytes % 7.2 Eosinophils % 1.4 Basophils % 0.3 Nucleated Red Blood 0.0 Cells % Immature 0.030 Granulocytes # Neutrophils # 4.8 Lymphocytes # 0.5 L Monocytes # 0.4 Eosinophils # 0.1 Basophils # 0.0 Nucleated Red Blood 0.0 Cells # Bedside Glucose 125 Exam/Review of Systems Exam Vitals Vital Signs Date Temp Pulse Resp B/P (MAP) Pulse Ox O2 O2 Flow FiO2 Time Delivery Rate 12/11/18 97.5 73 18 121/57 100 02:00 (78) 12/10/18 Room Air 16:51 Intake and Output 12/10/18 12/10/18 12/11/18 1515:00 23:00 07:00 IntakeIntake Total 710 ml 290 ml OutputOutput Total 800 ml 150 ml BalanceBalance -90 ml 140 ml Constitutional: alert Psych: nl mood/affect Eyes: nl lids, nl sclera ENMT: nl external ears & nose Neck: non-tender Respiratory: diminished breath sounds Cardiovascular: nl pulses Gastrointestinal: soft, other (gt intact) Musculoskeletal: muscle weakness Extremities: normal pulses Neurological: confused Results Results 24hrs Laboratory Tests Test 12/10/18 11:41 12/10/18 15:23 12/10/18 17:13 12/10/18 21:40 Bedside Glucose 106 97 81 98 Test 12/11/18 07:21 12/11/18 08:15 White Blood Count 5.9 # Red Blood Count 3.64 L Hemoglobin 11.2 L Hematocrit 35.7 L Mean Corpuscular 98.1 Volume Mean Corpuscular 30.8 Hemoglobin Mean Corpuscular 31.4 L Hemoglobin Concent Red Cell 14.1 Distribution Width Platelet Count 158 Mean Platelet Volume 12.2 H Immature 0.500 H Granulocytes % Neutrophils % 81.7 H Lymphocytes % 8.9 L Monocytes % 7.2 Eosinophils % 1.4 Basophils % 0.3 Nucleated Red Blood 0.0 Cells % Immature 0.030 Granulocytes # Neutrophils # 4.8 Lymphocytes # 0.5 L Monocytes # 0.4 Eosinophils # 0.1 Basophils # 0.0 Nucleated Red Blood 0.0 Cells # Bedside Glucose 125 Medications Medication Current Medications Acetaminophen (Tylenol Tab) 650 mg Q4H PRN PO PAIN 1-1010; Start 12/08/18 at 01:30 Allopurinol (Zyloprim) 100 mg BID PO Last administered on 12/11/18at 08:19; Admin Dose 100 MG; Start 12/08/18 at 09:00 Ascorbic Acid (Vitamin C) 500 mg DAILY PO Last administered on 12/11/18at 08:19; Admin Dose 500 MG; Start 12/08/18 at 09:00 Atorvastatin Calcium (Lipitor) 40 mg QHS PO Last administered on 12/09/18at 20:59; Admin Dose 40 MG; Start 12/08/18 at 21:00 Cinacalcet (Sensipar) 60 mg BID PO Last administered on 12/11/18at 08:18; Admin Dose 60 MG; Start 12/08/18 at 09:00 Clopidogrel Bisulfate (plaVIX) 75 mg DAILY PO Last administered on 12/11/18 08:18; Admin Dose 75 MG; Start 12/08/18 at 09:00 Hydralazine HCl (Apresoline) 50 mg BID PO Last administered on 12/11/18 08:19; Admin Dose 50 MG; Start 12/08/18 at 09:00 Zinc Sulfate (Zinc Sulfate) 220 mg DAILY PO Last administered on 12/11/18 08:19; Admin Dose 220 MG; Start 12/08/18 at 09:00 Multivitamins/ Minerals (Theragran-M) 1 tab DAILY PO Last administered on 12/11/18 08:19; Admin Dose 1 TAB; Start 12/08/18 at 09:00 Diagnostic Test (Pha) (Accu-Chek) 1 ea AC MEALS AND BEDTIME XX Last administer ed on 12/11/18 07:00; Admin Dose 1 EA; Start 12/08/18 at 07:00 Potassium Chloride/Dextrose/ Sod Cl 1,000 ml @ 80 mls/hr [id number] IV Last administered on 12/11/18 04:51; Admin Dose 80 MLS/HR; Start 12/08/18 at 15:30 PARKER WOOD Dec 11, 2018 09:06
[2018-12-11] MEDS ORDERED: GLUCOSE GEL 15 GRAM TUBE BUCCAL PRN (09:30)
[2018-12-11] MEDS ORDERED: GLUCOSE GEL 15 GRAM TUBE PO PRN ×2 (09:30)
[2018-12-11] MEDS ORDERED: DEXTROSE 50% 50 ML SYRINGE IV PRN ×2 (09:30)
[2018-12-11] MEDS ORDERED: GLUCAGON 1 MG INJ IM PRN (09:30)
[2018-12-11] MEDS: INSULIN ASPART [NOVOLOG] 3 ML PEN SC SCH ×2 (12:00→18:00)
[2018-12-11 14:00] VITALS: BP 99/65; PULSE 114; RESP 18
[2018-12-11 19:39] VITALS: BP 112/65; PULSE 118; RESP 20
[2018-12-11] MEDS: ATORVASTATIN 40 MG TAB PO SCH (20:28)
[2018-12-12] MEDS: INSULIN ASPART [NOVOLOG] 3 ML PEN SC SCH ×5 (00:11→23:31)
[2018-12-12 02:09] VITALS: BP 110/70; PULSE 118; RESP 19
[2018-12-12] MEDS: ACETAMINOPHEN 325 MG TAB PO PRN (02:19)
[2018-12-12] MEDS: D5W-0.45 NACL + KCL 20 MEQ 1,000 ML IV SCH (02:19)
[2018-12-12 05:45] VITALS: BP 104/58; PULSE 102; RESP 18
[2018-12-12 07:22] VITALS: BP 113/50; PULSE 85; RESP 18
[2018-12-12] MEDS: ALLOPURINOL 100 MG TAB PO SCH ×2 (08:35→20:25)
[2018-12-12] MEDS: CLOPIDOGREL 75 MG TAB PO SCH (08:35)
[2018-12-12] MEDS: ZINC SULFATE 220 MG CAP PO SCH (08:36)
[2018-12-12] MEDS: CINACALCET 30 MG TAB PO SCH ×2 (08:36→20:25)
[2018-12-12] MEDS: MULTIVITAMINS/MINERALS TAB PO SCH (08:36)
[2018-12-12] MEDS: ASCORBIC ACID 500 MG TAB PO SCH (08:36)
--- NOTE | 2018-12-12 13:09 | PN ---
Date/Time of Note Date/Time of Note DATE: 12/12/18 TIME: 13:08 Assessment/Plan VTE Prophylaxis Risk score (from Nsg)>0 risk: 4 SCD applied (from Nsg): Yes Pharmacological prophylaxis: LMWH Lines/Catheters IV Catheter Type (from Nrsg): Peripheral IV Urinary Cath still in place: Yes Reason Cath still needed: skin wounds contaminated by urine Assessment/Plan Hospital Course -Failure to thrive -Dehydration, start IV fluids -Anorexia. Dr. Arnold is asked to see patient in gastroenterology consultation. -Severe protein calorie malnutrition - diabetic boost - dietary consult -Coronary artery disease status post stent placement, continue Plavix -Diabetes, NovoLog per sliding scale. -Acute kidney injury on chronic kidney disease - BUN/Cr - wnl Result Diagram: 12/11/1872012/11/18720 Results 24hrs Laboratory Tests Test 12/11/18 17:26 12/12/18 00:03 12/12/18 05:20 12/12/18 12:22 Bedside Glucose 120 157 220 135 Subjective 24 Hr Interval Summary Free Text/Dictation Patient feels cold Exam/Review of Systems Exam Vitals Vital Signs Date Temp Pulse Resp B/P (MAP) Pulse Ox O2 O2 Flow FiO2 Time Delivery Rate 12/12/18 98.6 85 18 113/50 99 07:22 (71) 12/12/18 Room Air 05:45 12/11/18 2 20:49 Intake and Output 12/11/18 12/11/18 12/12/18 1515:00 23:00 07:00 IntakeIntake Total 360 ml 780 ml 820 ml OutputOutput Total 800 ml BalanceBalance 360 ml -20 ml 820 ml Constitutional: well developed, frail Head: normocephalic, atraumatic Neck: supple Respiratory: diminished breath sounds Cardiovascular: regular rate and rhythm Gastrointestinal: soft, non-tender Extremities: normal pulses Results Results 24hrs Laboratory Tests Test 12/11/18 17:26 12/12/18 00:03 12/12/18 05:20 12/12/18 12:22 Bedside Glucose 120 157 220 135 Medications Medication Current Medications Acetaminophen (Tylenol Tab) 650 mg Q4H PRN PO PAIN 1-07/01 Last administered on 12/12/18at 02:19; Admin Dose 650 MG; Start 12/08/18 at 01:30 Allopurinol (Zyloprim) 100 mg BID PO Last administered on 12/12/18 08:35; Admin Dose 100 MG; Start 12/08/18 at 09:00 Ascorbic Acid (Vitamin C) 500 mg DAILY PO Last administered on 12/12/18 08:36; Admin Dose 500 MG; Start 12/08/18 at 09:00 Atorvastatin Calcium (Lipitor) 40 mg QHS PO Last administered on 12/11/18 20:28; Admin Dose 40 MG; Start 12/08/18 at 21:00 Cinacalcet (Sensipar) 60 mg BID PO Last administered on 12/12/18 08:36; Admin Dose 60 MG; Start 12/08/18 at 09:00 Clopidogrel Bisulfate (plaVIX) 75 mg DAILY PO Last administered on 12/12/18 08:35; Admin Dose 75 MG; Start 12/08/18 at 09:00 Hydralazine HCl (Apresoline) 50 mg BID PO Last administered on 12/12/18 08:36; Admin Dose 50 MG; Start 12/08/18 at 09:00 Zinc Sulfate (Zinc Sulfate) 220 mg DAILY PO Last administered on 12/12/18 08:36; Admin Dose 220 MG; Start 12/08/18 at 09:00 Multivitamins/ Minerals (Theragran-M) 1 tab DAILY PO Last administered on 12/12/18 08:36; Admin Dose 1 TAB; Start 12/08/18 at 09:00 Potassium Chloride/Dextrose/ Sod Cl 1,000 ml @ 40 mls/hr Q24H IV Last administered on 12/12/18 02:19; Admin Dose 40 MLS/HR; Start 12/08/18 at 15:30 Insulin Aspart (Novolog Insulin Pen) NOVOLOG *MILD* ALGORI... Q6 SC Last administered on 12/12/18 05:24; Admin Dose 2 UNIT; Start 12/11/18 at 12:00 Miscellaneous Information 1 ea NOTE XX ; Start 12/11/18 at 09:30 Glucose (Glutose) 15 gm Q15M PRN PO DECREASED GLUCOSE; Start 12/11/18 at 09:30 Glucose (Glutose) 22.5 gm Q15M PRN PO DECREASED GLUCOSE; Start 12/11/18 at 09:30 Dextrose (D50w Syringe) 25 ml Q15M PRN IV DECREASED GLUCOSE; Start 12/11/18 at 09:30 Dextrose (D50w Syringe) 50 ml Q15M PRN IV DECREASED GLUCOSE; Start 12/11/18 at 09:30 Glucagon (Glucagen) 1 mg Q15M PRN IM DECREASED GLUCOSE; Start 12/11/18 at 09:30 Glucose (Glutose) 15 gm Q15M PRN BUCCAL DECREASED GLUCOSE; Start 12/11/18 at 09:30 DAYSI HERNANDEZ Dec 12, 2018 13:09
[2018-12-12 14:16] VITALS: BP 110/52; RESP 18
[2018-12-12 15:00] VITALS: BP 110/60; PULSE 92; RESP 18
[2018-12-12 19:23] VITALS: BP 121/57; PULSE 51; RESP 16
[2018-12-12] MEDS: ATORVASTATIN 40 MG TAB PO SCH (20:25)
[2018-12-13 01:30] VITALS: BP 119/58; PULSE 95; RESP 16
[2018-12-13] MEDS: D5W-0.45 NACL + KCL 20 MEQ 1,000 ML IV SCH ×2 (02:43→03:50)
[2018-12-13] MEDS: INSULIN ASPART [NOVOLOG] 3 ML PEN SC SCH ×4 (06:29→23:33)
[2018-12-13 07:29] VITALS: BP 132/58; PULSE 87; RESP 18
[2018-12-13] MEDS: CLOPIDOGREL 75 MG TAB PO SCH (08:27)
[2018-12-13] MEDS: MULTIVITAMINS/MINERALS TAB PO SCH (08:27)
[2018-12-13] MEDS: ALLOPURINOL 100 MG TAB PO SCH ×2 (08:27→20:41)
[2018-12-13] MEDS: CINACALCET 30 MG TAB PO SCH ×2 (08:27→21:24)
[2018-12-13] MEDS: ZINC SULFATE 220 MG CAP PO SCH (08:27)
[2018-12-13] MEDS: ASCORBIC ACID 500 MG TAB PO SCH (08:28)
--- NOTE | 2018-12-13 12:53 | PN ---
Date/Time of Note Date/Time of Note DATE: 12/13/18 TIME: 12:53 Assessment/Plan VTE Prophylaxis Risk score (from Ns)>0 risk: 3 SCD applied (from Ns): No SCD contraindicated: other Pharmacological prophylaxis: LMWH Lines/Catheters IV Catheter Type (from Nrs): Peripheral IV Urinary Cath still in place: Yes Reason Cath still needed: skin wounds contaminated by urine Assessment/Plan Hospital Course -Failure to thrive -Dehydration, start IV fluids -Anorexia. Dr. Arnold is asked to see patient in gastroenterology consultation. -Severe protein calorie malnutrition - diabetic boost - dietary consult -Coronary artery disease status post stent placement, continue Plavix -Diabetes, NovoLog per sliding scale. -Acute kidney injury on chronic kidney disease - BUN/Cr - wnl Result Diagram: 12/11/1821 12/11/18 0721 Results 24hrs Laboratory Tests Test 12/12/18 17:06 12/12/18 23:29 12/13/18 06:27 12/13/18 12:07 Bedside Glucose 172 179 174 179 Subjective 24 Hr Interval Summary Free Text/Dictation Patient states that he feels cold Exam/Review of Systems Exam Vitals Vital Signs Date Temp Pulse Resp B/P (MAP) Pulse Ox O2 O2 Flow FiO2 Time Delivery Rate 12/13/18 98.5 87 18 132/58 97 07:29 (82) 12/12/18 Room Air 15:00 12/11/18 2 20:49 Intake and Output 12/12/18 12/12/18 12/13/18 1515:00 23:00 07:00 IntakeIntake Total 1880 ml OutputOutput Total 550 ml 500 ml BalanceBalance -550 ml 1380 ml Constitutional: well developed, frail Head: normocephalic, atraumatic Neck: supple Respiratory: diminished breath sounds Cardiovascular: regular rate and rhythm Gastrointestinal: soft, non-tender Extremities: normal pulses Results Results 24hrs Laboratory Tests Test 12/12/18 17:06 12/12/18 23:29 12/13/18 06:27 12/13/18 12:07 Bedside Glucose 172 179 174 179 Medications Medication Current Medications Acetaminophen (Tylenol Tab) 650 mg Q4H PRN PO PAIN 1-07/01 Last administered on 12/12/18at 02:19; Admin Dose 650 MG; Start 12/08/18 at 01:30 Allopurinol (Zyloprim) 100 mg BID PO Last administered on 12/13/18 08:27; Admin Dose 100 MG; Start 12/08/18 at 09:00 Ascorbic Acid (Vitamin C) 500 mg DAILY PO Last administered on 12/13/18 08:28; Admin Dose 500 MG; Start 12/08/18 at 09:00 Atorvastatin Calcium (Lipitor) 40 mg QHS PO Last administered on 12/12/18 20:25; Admin Dose 40 MG; Start 12/08/18 at 21:00 Cinacalcet (Sensipar) 60 mg BID PO Last administered on 12/13/18 08:27; Admin Dose 60 MG; Start 12/08/18 at 09:00 Clopidogrel Bisulfate (plaVIX) 75 mg DAILY PO Last administered on 12/13/18 08:27; Admin Dose 75 MG; Start 12/08/18 at 09:00 Hydralazine HCl (Apresoline) 50 mg BID PO Last administered on 12/13/18 08:27; Admin Dose 50 MG; Start 12/08/18 at 09:00 Zinc Sulfate (Zinc Sulfate) 220 mg DAILY PO Last administered on 12/13/18 08:27; Admin Dose 220 MG; Start 12/08/18 at 09:00 Multivitamins/ Minerals (Theragran-M) 1 tab DAILY PO Last administered on 12/13/18 08:27; Admin Dose 1 TAB; Start 12/08/18 at 09:00 Potassium Chloride/Dextrose/ Sod Cl 1,000 ml @ 40 mls/hr Q24H IV Last administered on 12/13/18 02:43; Admin Dose 40 MLS/HR; Start 12/08/18 at 15:30 Insulin Aspart (Novolog Insulin Pen) NOVOLOG *MILD* ALGORI... Q6 SC Last administered on 12/13/18 12:11; Admin Dose 1 UNIT; Start 12/11/18 at 12:00 Miscellaneous Information 1 ea NOTE XX ; Start 12/11/18 at 09:30 Glucose (Glutose) 15 gm Q15M PRN PO DECREASED GLUCOSE; Start 12/11/18 at 09:30 Glucose (Glutose) 22.5 gm Q15M PRN PO DECREASED GLUCOSE; Start 12/11/18 at 09:30 Dextrose (D50w Syringe) 25 ml Q15M PRN IV DECREASED GLUCOSE; Start 12/11/18 at 09:30 Dextrose (D50w Syringe) 50 ml Q15M PRN IV DECREASED GLUCOSE; Start 12/11/18 at 09:30 Glucagon (Glucagen) 1 mg Q15M PRN IM DECREASED GLUCOSE; Start 12/11/18 at 09:30 Glucose (Glutose) 15 gm Q15M PRN BUCCAL DECREASED GLUCOSE; Start 12/11/18 at 09:30 DAYSI HERNANDEZ Dec 13, 2018 12:53
[2018-12-13 14:08] VITALS: BP 118/55; PULSE 98; RESP 19
[2018-12-13 20:04] VITALS: BP 121/57; PULSE 93; RESP 18
[2018-12-13] MEDS: ATORVASTATIN 40 MG TAB PO SCH (20:41)
[2018-12-14 02:01] VITALS: BP 124/60; PULSE 73; RESP 18
[2018-12-14] MEDS: D5W-0.45 NACL + KCL 20 MEQ 1,000 ML IV SCH (03:47)
[2018-12-14] MEDS: INSULIN ASPART [NOVOLOG] 3 ML PEN SC SCH ×3 (06:37→17:41)
[2018-12-14 07:25] VITALS: BP 115/58; PULSE 95; RESP 18
[2018-12-14] MEDS: MULTIVITAMINS/MINERALS TAB PO SCH (08:26)
[2018-12-14] MEDS: CLOPIDOGREL 75 MG TAB PO SCH (08:26)
[2018-12-14] MEDS: ASCORBIC ACID 500 MG TAB PO SCH (08:28)
[2018-12-14] MEDS: CINACALCET 30 MG TAB PO SCH ×3 (08:28→20:44)
[2018-12-14] MEDS: ALLOPURINOL 100 MG TAB PO SCH ×2 (08:28→20:44)
[2018-12-14] MEDS: ZINC SULFATE 220 MG CAP PO SCH (08:28)
[2018-12-14 14:00] VITALS: BP 120/56; PULSE 86; RESP 18
--- NOTE | 2018-12-14 18:54 | PN ---
Date/Time of Note Date/Time of Note DATE: 12/14/18 TIME: 18:50 Assessment/Plan VTE Prophylaxis Risk score (from Nsg)>0 risk: 4 SCD applied (from Nsg): Yes Pharmacological prophylaxis: LMWH Lines/Catheters IV Catheter Type (from Nrsg): Peripheral IV Urinary Cath still in place: Yes Reason Cath still needed: urinary retention Assessment/Plan Hospital Course Increase GT feeding to goal of 45cc/hr, monitor residual, D/c planning. Assessment/Plan -Failure to thrive -Dehydration, resolving, BMP tomorrow -Anorexia. Dr. Arnold is following in gastroenterology consultation. S/p GT placement, continue GT feeding. -Severe protein calorie malnutrition -Coronary artery disease status post stent placement, continue Plavix -Diabetes, NovoLog per sliding scale. -Acute kidney injury on chronic kidney disease Further recommendations based on clinical course. Plan of care discussed with Dr. Garcia. Result Diagram: 12/11/18 0721 12/11/18 0721 Results 24hrs Laboratory Tests Test 12/13/18 23:28 12/14/18 02:15 12/14/18 06:33 12/14/18 12:17 Bedside Glucose 220 148 182 167 Test 12/14/18 17:40 Bedside Glucose 135 Exam/Review of Systems Exam Vitals Vital Signs Date Temp Pulse Resp B/P (MAP) Pulse Ox O2 O2 Flow FiO2 Time Delivery Rate 12/14/18 98.0 86 18 120/56 98 14:00 (77) 12/12/18 Room Air 15:00 12/11/18 2 20:49 Intake and Output 12/13/18 12/13/18 12/14/18 1515:00 23:00 07:00 IntakeIntake Total 1860 ml 520 ml OutputOutput Total 1100 ml 800 ml BalanceBalance 760 ml -280 ml Exam Constitutional: frail Respiratory: clear to auscultation Cardiovascular: nl pulses Gastrointestinal: soft, non-tender Musculoskeletal: nl extremities to inspection Extremities: normal pulses Neurological: confused Results Results 24hrs Laboratory Tests Test 12/13/18 23:28 12/14/18 02:15 12/14/18 06:33 12/14/18 12:17 Bedside Glucose 220 148 182 167 Test 12/14/18 17:40 Bedside Glucose 135 Medications Medication Current Medications Acetaminophen (Tylenol Tab) 650 mg Q4H PRN PO PAIN 1-07/01 Last administered on 12/12/18 02:19; Admin Dose 650 MG; Start 12/08/18 at 01:30 Allopurinol (Zyloprim) 100 mg BID PO Last administered on 12/14/18 08:28; Admin Dose 100 MG; Start 12/08/18 at 09:00 Ascorbic Acid (Vitamin C) 500 mg DAILY PO Last administered on 12/14/18 08:28; Admin Dose 500 MG; Start 12/08/18 at 09:00 Atorvastatin Calcium (Lipitor) 40 mg QHS PO Last administered on 12/13/18 20:41; Admin Dose 40 MG; Start 12/08/18 at 21:00 Cinacalcet (Sensipar) 60 mg BID PO Last administered on 12/14/18 12:07; Admin Dose 60 MG; Start 12/08/18 at 09:00 Clopidogrel Bisulfate (plaVIX) 75 mg DAILY PO Last administered on 12/14/18 08:26; Admin Dose 75 MG; Start 12/08/18 at 09:00 Hydralazine HCl (Apresoline) 50 mg BID PO Last administered on 12/14/18 08:28; Admin Dose 50 MG; Start 12/08/18 at 09:00 Zinc Sulfate (Zinc Sulfate) 220 mg DAILY PO Last administered on 12/14/18 08:28; Admin Dose 220 MG; Start 12/08/18 at 09:00 Multivitamins/ Minerals (Theragran-M) 1 tab DAILY PO Last administered on 12/14/18 08:26; Admin Dose 1 TAB; Start 12/08/18 at 09:00 Potassium Chloride/Dextrose/ Sod Cl 1,000 ml @ 40 mls/hr Q24H IV Last administered on 12/14/18 03:47; Admin Dose 40 MLS/HR; Start 12/08/18 at 15:30 Insulin Aspart (Novolog Insulin Pen) NOVOLOG *MILD* ALGORI... Q6 SC Last administered on 12/14/18 12:43; Admin Dose 1 UNIT; Start 12/11/18 at 12:00 Miscellaneous Information 1 ea NOTE XX ; Start 12/11/18 at 09:30 Glucose (Glutose) 15 gm Q15M PRN PO DECREASED GLUCOSE; Start 12/11/18 at 09:30 Glucose (Glutose) 22.5 gm Q15M PRN PO DECREASED GLUCOSE; Start 12/11/18 at 09:30 Dextrose (D50w Syringe) 25 ml Q15M PRN IV DECREASED GLUCOSE; Start 12/11/18 at 09:30 Dextrose (D50w Syringe) 50 ml Q15M PRN IV DECREASED GLUCOSE; Start 12/11/18 at 09:30 Glucagon (Glucagen) 1 mg Q15M PRN IM DECREASED GLUCOSE; Start 12/11/18 at 09:30 Glucose (Glutose) 15 gm Q15M PRN BUCCAL DECREASED GLUCOSE; Start 12/11/18 at 09:30 SERINA MARSHALL Dec 14, 2018 18:53
[2018-12-14 20:01] VITALS: BP 113/56; PULSE 97; RESP 16
[2018-12-14] MEDS: ACETAMINOPHEN 325 MG TAB PO PRN (20:43)
[2018-12-14] MEDS: SENNA TAB PO SCH (20:44)
[2018-12-14] MEDS: ATORVASTATIN 40 MG TAB PO SCH (20:44)
[2018-12-15 02:18] VITALS: BP 107/53; PULSE 82; RESP 16
[2018-12-15] MEDS: INSULIN ASPART [NOVOLOG] 3 ML PEN SC SCH ×3 (05:48→12:13)
[2018-12-15] MEDS: D5W-0.45 NACL + KCL 20 MEQ 1,000 ML IV SCH (05:49)
[2018-12-15 07:31] VITALS: BP 126/59; PULSE 95; RESP 16
[2018-12-15] MEDS: ZINC SULFATE 220 MG CAP PO SCH (09:09)
[2018-12-15] MEDS: ALLOPURINOL 100 MG TAB PO SCH (09:10)
[2018-12-15] MEDS: ASCORBIC ACID 500 MG TAB PO SCH (09:10)
[2018-12-15] MEDS: CLOPIDOGREL 75 MG TAB PO SCH (09:10)
[2018-12-15] MEDS: MULTIVITAMINS/MINERALS TAB PO SCH (09:10)
[2018-12-15] MEDS: SENNA TAB PO SCH (09:10)
[2018-12-15] MEDS: CINACALCET 30 MG TAB PO SCH (10:52)
[2018-12-15] MEDS ORDERED: SOD CHLORIDE 0.9% 250 ML IV ONE (11:00)
[2018-12-15 13:51] VITALS: BP 126/76; PULSE 82; RESP 16
--- NOTE | 2018-12-15 23:31 | DS ---
Date/Time of Note Date/Time of Note DATE: 12/15/18 TIME: 23:30 Discharge Summary Admission/Discharge Info Admit Date/Time Dec 07, 2018 at 20:15 Discharge Date/Time Dec 15, 2018 at 14:20 Patient Condition: Stable Hx of Present Illness The patient is a 83-year-old cachectic male with history of dementia, coronary artery disease, status post stent placement, hypertension, hyperlipidemia diabetes, chronic kidney disease, CVA, heart cachexia and failure to thrive, history of multiple pressure ulcers. Patient is brought from longterm facility for dehydration and anorexia. Patient is awake alert however cannot provide any medical history due to dementia, most history was taking from medical records and talking to nursing staff. No fever, nausea vomiting, diarrhea were reported. Patient will be admitted for hydration and possible G- tube placement. Hospital Course Pt d/jose to [facility] -Failure to thrive -Dehydration, resolving, BMP tomorrow -Anorexia. Dr. Arnold is following in gastroenterology consultation. S/p GT placement, continue GT feeding. Increase GT feeding to goal of 45cc/hr, monitor residual -Severe protein calorie malnutrition -Coronary artery disease status post stent placement, continue Plavix -Diabetes, NovoLog per sliding scale. -Acute kidney injury on chronic kidney disease Plan of care discussed with Dr. Garcia. Home Meds Active Scripts Allopurinol* (Allopurinol*) 100 Mg Tablet, 100 MG PO BID for 30 Days, TAB Prov:SARITA HERNANDEZ MD 11/27/18 Reported Medications Zinc Sulfate* (Zinc Sulfate*) 220 Mg Tablet, 220 MG PO DAILY, TAB FOR 14 DAYS,START DATE 12/06/18 AND END DATE 12/20/18 12/07/18 Ascorbic Acid (Vitamin C) 500 Mg Tab, 500 MG PO DAILY, TAB 12/07/18 Multivitamin with Minerals (Multivitamins with Minerals) 1 Each Tablet, 1 EACH PO DAILY, TAB 12/07/18 Acetaminophen* (Acetaminophen*) 325 Mg Tablet, 650 MG PO Q4H PRN for PAIN 1- 07/01, #30 TAB 12/07/18 Hydralazine Hcl* (Hydralazine Hcl*) 50 Mg Tab, 50 MG PO BID, #90 TAB HOLD FOR SBP<110 OR WV<60 11/22/18 Clopidogrel Bisulfate (Clopidogrel) 75 Mg Tablet, 75 MG PO DAILY, #30 TAB 11/22/18 Metformin* (Glucophage*) 1,000 Mg Tablet, 1000 MG PO WITH BREAKFAST DINNE, #30 TAB 11/22/18 Atorvastatin* (Atorvastatin*) 40 Mg Tablet, 40 MG PO QHS, #30 TAB 11/22/18 Cinacalcet* (Sensipar*) 60 Mg Tablet, 60 MG PO BID, TAB 11/22/18 Follow-up Plan BMP in 1 week. Primary Care Provider Benja Garcia MD Time spent on discharge: > 30 minutes Pending Labs Laboratory Tests Test 12/15/18 00:23 12/15/18 05:43 12/15/18 05:53 12/15/18 05:54 Bedside 138 174 Glucose mg/dL (70-220) mg/dL (70-220) Sodium Level 131 mmol/L (135-14 4) Potassium 4.6 Level mmol/L (3.5-5. 1) Chloride Level 94 mmol/L (97-110 ) Carbon Dioxide 25 Level mmol/L (21-31) Anion Gap 12 (5-13) Blood Urea 24 Nitrogen mg/dl (7-20) Creatinine 0.93 mg/dl (0.61-1. 24) Est Glomerular mL/min (>60) Filtrat Rate mL/min Glucose Level 149 mg/dl (70-220) Calcium Level 8.1 mg/dl (8.4-10. 2) White Blood 3.4 Count 10^3/ul (4.8-1 0.8) Red Blood 3.13 Count 10^6/ul (4.70- 6.10) Hemoglobin 9.7 g/dl (14.0-18. 0) Hematocrit 31.1 % (42.0-52.0) Mean 99.4 Corpuscular fl (82.0-101.0 Volume ) Mean 31.0 Corpuscular pg (29.0-33.0) Hemoglobin Mean 31.2 Corpuscular g/dl (32.0-37. Hemoglobin Conc 0) ent Red Cell 14.5 Distribution % (11.5-14.5) Width Platelet Count 137 10^3/UL (140-4 15) Mean Platelet 12.4 Volume fl (7.4-10.4) Immature 0.600 Granulocytes % % (0.001-0.429 ) Neutrophils % 61.0 % (39.0-77.0) Lymphocytes % 25.3 % (15.0-51.0) Monocytes % 10.8 % (0.0-11.0) Eosinophils % 1.7 % (0.0-7.0) Basophils % 0.6 % (0.0-2.0) Nucleated Red 0.0 Blood Cells % /100WBC (0.0-0 .0) Immature 0.020 Granulocytes # 10^3/ul (0.0-0 .031) Neutrophils # 2.1 10^3/ul (1.6-7 .5) Lymphocytes # 0.9 10^3/ul (0.8-2 .9) Monocytes # 0.4 10^3/ul (0.3-0 .9) Eosinophils # 0.1 10^3/ul (0.0-0 .5) Basophils # 0.0 10^3/ul (0.0-0 .1) Nucleated Red 0.0 Blood Cells # 10^3/ul (0.0-0 .0) Test 12/15/18 12:11 Bedside 155 Glucose mg/dL (70-220) SERINA MARSHALL Dec 15, 2018 23:31
== END 2018-12-15 14:20 | DRG 640 ==
LOC: E/R 19:11 → 5EC 20:15
PROVIDERS: ADMIT Internal Medicine; ATTEND Internal Medicine
PROC: 0DH63UZ Insertion of Feeding Device into Stomach, Percutaneous Approach (ICD-10-PCS; 2018-12-10)
PROC: 0DJ08ZZ Inspection of Upper Intestinal Tract, Via Natural or Artificial Opening Endoscopic (ICD-10-PCS; principal; 2018-12-10 12:00)
DX: E86.0 Dehydration (principal); E43 Unspecified severe protein-calorie malnutrition; R64 Cachexia; Z68.1 Body mass index [BMI] 19.9 or less, adult; N17.9 Acute kidney failure, unspecified; E11.22 Type 2 diabetes mellitus with diabetic chronic kidney disease; J44.9 Chronic obstructive pulmonary disease, unspecified; F03.90 Unspecified dementia, unspecified severity, without behavioral disturbance, psychotic disturbance, mood disturbance, and anxiety; I25.10 Atherosclerotic heart disease of native coronary artery without angina pectoris; I12.9 Hypertensive chronic kidney disease with stage 1 through stage 4 chronic kidney disease, or unspecified chronic kidney disease; N18.9 Chronic kidney disease, unspecified; R62.7 Adult failure to thrive; Z79.4 Long term (current) use of insulin; Z79.84 Long term (current) use of oral hypoglycemic drugs; Z87.891 Personal history of nicotine dependence; Z95.5 Presence of coronary angioplasty implant and graft; Z86.73 Personal history of transient ischemic attack (TIA), and cerebral infarction without residual deficits
CPT/HCPCS: 71045; 80048; 80053; 81001; 82962; 83605; 84484; 85025; 85610; 85730; 87040; 87081; 87086; 90686; 93005; 96374; J0690; J0696; J1815; J3480; J7030; J7040